=== PATIENT | male | born 1965 | race American Indian/Alaskan Native ===

== ENCOUNTER 2020-12-27 15:19 | Inpatient (IN) | payer OTHER ==
--- NOTE | 2020-12-27 15:31 | Event Note ---
ED Screening Note Date of service: 12/27/20 Time: 15:30 ED Screening Note: Patient complains of 3 days of left-sided chest pain and shortness of breath He has a history of [place], 6 stent placements, and CHF He states compliance with his home meds He also admits to extremity swelling This initial assessment/diagnostic orders/clinical plan/treatment(s) is/are subject to change based on patients health status, clinical progression and re- assessment by fellow clinical providers in the ED. Further treatment and workup at subsequent clinical providers discretion. Patient/guardian urged not to elope from the ED as their condition may be serious if not clinically assessed and managed. Initial orders include: Labs EKG Chest x-ray
--- NOTE | 2020-12-27 16:33 | XRay Report ---
CHEST 2 VIEWS INDICATION / CLINICAL INFORMATION: chest pain. COMPARISON: None available. FINDINGS: SUPPORT DEVICES: None. HEART / MEDIASTINUM: No significant abnormality. LUNGS / PLEURA: Streaky opacities in both midlungs likely indicate chronic scarring. ADDITIONAL FINDINGS: No significant additional findings. IMPRESSION: 1. Streaky opacities in both midlungs likely indicate chronic scarring. No definite acute findings. Signer Name: Connor Gordon MD Signed: 12/27/2020 4:28 PM Workstation Name: [id number]
[2020-12-27 17:08] LABS: Basophils # (Auto) 0.1 K/mm3 (0.0-0.1); Basophils % (Auto) 2.4 % (0.0-1.8); Eosinophils # (Auto) 0.1 K/mm3 (0.0-0.4); Eosinophils % (Auto) 1.2 % (0.0-4.3); Hematocrit 45.8 % (35.5-45.6); Hemoglobin 14.8 gm/dl (11.8-15.2); Lymphocytes # (Auto) 1.3 K/mm3 (1.2-5.4); Lymphocytes % (Auto) 21.2 % (13.4-35.0); Mean Corpuscular HGB Conc 32 % (32-34); Mean Corpuscular Volume 96 fl (84-94); Monocytes # (Auto) 0.5 K/mm3 (0.0-0.8); Monocytes % (Auto) 7.4 % (0.0-7.3); Platelet Count 207 K/mm3 (140-440); Red Blood Count 4.76 M/mm3 (3.65-5.03); Red Cell Distribution Width 15.3 % (13.2-15.2)
[2020-12-27 17:30] LABS: Albumin 2.9 g/dL (3.9-5); Calcium 8.9 mg/dL (8.4-10.2)
[2020-12-28] MEDS ORDERED: FUROSEMIDE 40 MG/4 ML INJ IV ONE (02:26)
[2020-12-28] MEDS ORDERED: IBUPROFEN 800 MG TAB PO ONE (02:26)
[2020-12-28] MEDS ORDERED: hydrALAZINE 25 MG TAB PO ONE (02:26)
[2020-12-28] MEDS ORDERED: CLOPIDOGREL 75 MG TAB PO ONE (02:53)
[2020-12-28] MEDS ORDERED: ACETAMINOPHEN 325 MG TAB PO ONE (02:53)
[2020-12-28] MEDS ORDERED: amLODIPine 5 MG TAB PO ONE (02:53)
[2020-12-28] MEDS ORDERED: ASPIRIN 81 MG TAB CHEW PO ONE (02:53)
--- NOTE | 2020-12-28 02:54 | Event Note ---
Date of service: 12/28/20 Face to Face: The patient was evaluated in the emergency department for symptoms described in the history of present illness. He/she was evaluated in the context of the global COVID-19 pandemic, which necessitated consideration that the patient might be at risk for infection with the virus that causes COVID-19. Institutional protocols and algorithms that pertain to the evaluation of patients at risk for COVID-19 are in a state of rapid change based on information released by regulatory bodies including the CDC and federal and state organizations. These policies and algorithms were followed during the patient's care in the emergency department. Please note that these policies, procedures and recommendations changed on a rapid basis. Patient is a 55-year-old gentleman, with a history of heart disease, congestive heart failure, hypertension, not Covid vaccinated, who recently moved here from [place], presenting to the ER with a few days of chest tightness, lower extremity swelling. Denies fever, chills, nausea, vomiting or diarrhea, loss of taste and smell. Has been taking his Plavix. Has been taking his aspirin. Moderate risk for major adverse cardiac event as per heart score. Exam shows 3-4+ edema in the bilateral lower extremities. Laboratory studies suggest cardiorenal syndrome. Admit patient to the medical service for goal-directed medical management of decompensated congestive heart failure. This patient may also have a component of undiagnosed obstructive sleep apnea, he reports that he typically has to sleep on his knees, and also reports that he feels very sleepy during the day. However, he is not acutely hypoxic encephalopathic at this time, and he will need to follow-up as an outpatient to have a sleep study done. I discussed this plan of care with the patient. He has articulated understanding and is agreeable to admission. Denies travel, surgery, immobilization, recent travel, DVT and pulmonary embolism risk factors. Vital Signs 12/27/20 12/27/20 12/27/20 15:31 21:58 22:00 Temperature 98.2 F Pulse Rate 99 H Respiratory 20 Rate Blood Pressure 182/138 O2 Sat by Pulse 98 100 98 Oximetry 12/27/20 12/28/20 12/28/20 22:32 01:57 02:01 Temperature Pulse Rate Respiratory Rate Blood Pressure 165/120 O2 Sat by Pulse 96 97 99 Oximetry 12/28/20 12/28/20 12/28/20 02:15 02:31 02:45 Temperature Pulse Rate Respiratory Rate Blood Pressure 165/120 163/122 163/122 O2 Sat by Pulse 95 96 99 Oximetry 12/28/20 12/28/20 12/28/20 03:01 03:15 03:31 Temperature Pulse Rate Respiratory Rate Blood Pressure 175/126 175/126 180/120 O2 Sat by Pulse 96 95 98 Oximetry 12/28/20 12/28/20 12/28/20 03:32 03:45 04:01 Temperature Pulse Rate 85 Respiratory Rate Blood Pressure 180/120 180/120 164/115 O2 Sat by Pulse 95 98 Oximetry 12/28/20 04:03 Temperature Pulse Rate 92 H Respiratory Rate Blood Pressure 164/114 O2 Sat by Pulse Oximetry Lab Results 12/27/20 12/27/20 Range/Units 16:53 16:53 WBC 6.3 (4.5-11.0) K/mm3 RBC 4.76 (3.65-5.03) M/mm3 Hgb 14.8 (11.8-15.2) gm/dl Hct 45.8 H (35.5-45.6) % MCV 96 H (84-94) fl MCH 31 (28-32) pg MCHC 32 (32-34) % RDW 15.3 H (13.2-15.2) % Plt Count 207 (140-440) K/mm3 Lymph % (Auto) 21.2 (13.4-35.0) % [place] % (Auto) 7.4 H (0.0-7.3) % Eos % (Auto) 1.2 (0.0-4.3) % Baso % (Auto) 2.4 H (0.0-1.8) % Lymph # (Auto) 1.3 (1.2-5.4) K/mm3 [place] # (Auto) 0.5 (0.0-0.8) K/mm3 Eos # (Auto) 0.1 (0.0-0.4) K/mm3 Baso # (Auto) 0.1 (0.0-0.1) K/mm3 Seg Neutrophils % 67.8 (40.0-70.0) % Seg Neutrophils # 4.2 (1.8-7.7) K/mm3 Sodium 143 (137-145) mmol/L Potassium 4.3 (3.6-5.0) mmol/L Chloride 107.7 H (98-107) mmol/L Carbon Dioxide 29 (22-30) mmol/L Anion Gap 11 mmol/L BUN 33 H (9-20) mg/dL Creatinine 1.8 H (0.8-1.3) mg/dL Estimated GFR 48 ml/min BUN/Creatinine Ratio 18 % Glucose 98 (75-100) mg/dL Calcium 8.9 (8.4-10.2) mg/dL Total Bilirubin 0.60 (0.1-1.2) mg/dL AST 28 (5-40) units/L ALT 31 (7-56) units/L Alkaline Phosphatase 71 (35-129) units/L Troponin T 0.015 (0.00-0.029) ng/mL NT-Pro-B Natriuret Pep 5859 H (0-900) pg/mL Total Protein 5.2 L (6.3-8.2) g/dL Albumin 2.9 L (3.9-5) g/dL Albumin/Globulin Ratio 1.3 % CHEST 2 VIEWS INDICATION / CLINICAL INFORMATION: chest pain. COMPARISON: None available. FINDINGS: SUPPORT DEVICES: None. HEART / MEDIASTINUM: No significant abnormality. LUNGS / PLEURA: Streaky opacities in both midlungs likely indicate chronic scarring. ADDITIONAL FINDINGS: No significant additional findings. IMPRESSION: 1. Streaky opacities in both midlungs likely indicate chronic scarring. No definite acute findings. Signer Name: Connor Gordon MD Signed: 12/27/2020 3:28 PM Workstation Name: [id number] EKG interpreted at 15: 41 Sinus rhythm, 97 bpm. Left axis deviation, left anterior fascicular block, normal P wave axis. QTC 493 ms. Nonspecific T wave abnormalities. Abnormal EKG. Not a STEMI.
--- NOTE | 2020-12-28 03:02 | Emergency Department Report ---
<FREDY MCMULLEN - Last Filed: 12/28/20 03:11> ED General Adult HPI - General Chief complaint: Chest Pain Stated complaint: CHEST PAIN Time Seen by Provider: 12/27/20 15:29 Source: patient Mode of arrival: Ambulatory Limitations: No Limitations - History of Present Illness Initial comments: Patient is a 55-year-old -[place]ian male history of hypertension coronary artery disease with [place] and multiple stent placement 4 years ago x6. Patient describes intermittent CHF including activity intolerance and anasarca intermi ttently for the past 3 days. Patient takes Lasix 40 mg p.o. twice daily, lisinopril, hydrochlorothiazide, amlodipine. States intermittent chest pain 4/10 and shortness of breath preventing complete night sleep. 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 Patient presents to ER today because Lasix is not improving symptoms. There is been no nausea vomiting, diaphoresis no dizziness, or lightheadedness. Patient denies shortness of breath at this time. Severity scale (0 -10): 3 - Related Data Allergies Allergy/AdvReac Type Severity Reaction Status Date / Time Sulfa (Sulfonamide Allergy Anaphylaxis Verified 12/27/20 15:30 Antibiotics) ED Review of Systems Constitutional: denies: chills, fever Eyes: denies: eye pain, eye discharge, vision change ENT: as per HPI Respiratory: shortness of breath. denies: cough, wheezing Cardiovascular: chest pain, dyspnea on exertion, edema (bilat LE ), paroxysmal nocturnal dyspnea. denies: palpitations Endocrine: no symptoms reported Gastrointestinal: denies: abdominal pain, nausea, vomiting, diarrhea Genitourinary: denies: urgency, dysuria Musculoskeletal: denies: back pain, joint swelling, arthralgia Skin: denies: rash, lesions Neurological: denies: headache, weakness, paresthesias Psychiatric: denies: anxiety, depression Hematological/Lymphatic: denies: easy bleeding, easy bruising ED Past Medical Hx - Past Medical History Previous Medical History?: Yes Hx Hypertension: Yes Hx Heart Attack/AMI: Yes Hx Congestive Heart Failure: Yes Hx Diabetes: No - Surgical History Past Surgical History?: No ED Physical Exam - General Limitations: No Limitations General appearance: alert, in no apparent distress - Head Head exam: Present: atraumatic, normocephalic - Eye Eye exam: Present: EOMI Pupils: Present: normal accommodation - ENT ENT exam: Present: normal exam - Neck Neck exam: Present: normal inspection, full ROM. Absent: tenderness - Expanded Neck Exam Expanded Neck exam: Absent: anterior neck swelling, thyroid mass, carotid bruit - Respiratory Respiratory exam: Present: normal lung sounds bilaterally. Absent: respiratory distress, wheezes, stridor, chest wall tenderness, prolonged expiratory - Cardiovascular Cardiovascular Exam: Present: regular rate, normal rhythm, normal heart sounds. Absent: systolic murmur, diastolic murmur, rubs, gallop - GI/Abdominal GI/Abdominal exam: Present: soft, normal bowel sounds. Absent: distended, tenderness, bruit, hernia - Rectal Rectal exam: Present: deferred - Extremities Exam Extremities exam: Present: full ROM, pedal edema. Absent: calf tenderness - Back Exam Back exam: Present: normal inspection, full ROM. Absent: CVA tenderness (R), CVA tenderness (L) - Neurological Exam Neurological exam: Present: alert, oriented X3, CN II-XII intact, normal gait - Psychiatric Psychiatric exam: Present: normal affect, normal mood - Skin Skin exam: Present: warm, dry, intact, normal color. Absent: rash ED Medical Decision Making - Lab Data Result diagrams: 12/27/20 16:53 12/27/20 16:53 Labs 12/27/20 12/27/20 16:53 16:53 WBC 6.3 RBC 4.76 Hgb 14.8 Hct 45.8 H MCV 96 H MCH 31 MCHC 32 RDW 15.3 H Plt Count 207 Lymph % (Auto) 21.2 [place] % (Auto) 7.4 H Eos % (Auto) 1.2 Baso % (Auto) 2.4 H Lymph # (Auto) 1.3 [place] # (Auto) 0.5 Eos # (Auto) 0.1 Baso # (Auto) 0.1 Seg Neutrophils % 67.8 Seg Neutrophils # 4.2 Sodium 143 Potassium 4.3 Chloride 107.7 H Carbon Dioxide 29 Anion Gap 11 BUN 33 H Creatinine 1.8 H Estimated GFR 48 BUN/Creatinine Ratio 18 Glucose 98 Calcium 8.9 Total Bilirubin 0.60 AST 28 ALT 31 Alkaline Phosphatase 71 Troponin T 0.015 NT-Pro-B Natriuret Pep 5859 H Total Protein 5.2 L Albumin 2.9 L Albumin/Globulin Ratio 1.3 - EKG Data EKG shows normal: sinus rhythm Rate: normal - EKG Data When compared to previous EKG there are: previous EKG unavailable Interpretation: LVH (NSR no ST Elevated [place], interp by ed attending. ) - Radiology Data Radiology results: report reviewed, image reviewed CHEST 2 VIEWS INDICATION / CLINICAL INFORMATION: chest pain. COMPARISON: None available. FINDINGS: SUPPORT DEVICES: None. HEART / MEDIASTINUM: No significant abnormality. LUNGS / PLEURA: Streaky opacities in both midlungs likely indicate chronic scarring. ADDITIONAL FINDINGS: No significant additional findings. IMPRESSION: 1. Streaky opacities in both midlungs likely indicate chronic scarring. No definite acute findings. Signer Name: Connor Gordon MD Signed: 12/27/2020 4:28 PM Workstation Name: [id number] Transcribed By: RJ Dictated By: Connor Gordon MD Electronically Authenticated By: Connor Gordon MD Signed Date/Time: 12/27/201627 DD/ 27 TD/TT: - Medical Decision Making Heart score 6, troponin 0 0.015,, BNP 5859, chest x-ray mild bilateral mid lobe opacity, EKG normal sinus rhythm with LVH no ST elevated [place] interpreted by ED a ttending. Patient does have history of [place] coronary stent placements, has not seen general service technician in the past 5 to 6 months. Plan admit to hospitalist diagnosis chest pain , CHF. Consulted ed attending with tx plan , he concurs with plan, discussed treatment plan with patient who concurs with plan, consult of the hospitalist, Pt care handoff given at this time , will admit to hospitalist Dx CP, CHF at this time, . pt is currently a/o x 3, denies, CP or Sob at this time. ED Disposition Clinical Impression: Chest pain Qualifiers: Chest pain type: unspecified Qualified Code(s): R07.9 - Chest pain, unspecified CHF (congestive heart failure) Qualifiers: Heart failure type: unspecified Heart failure chronicity: acute on chronic Qualified Code(s): I50.9 - Heart failure, unspecified Disposition: ADMITTED INPATIENT Is pt being admited?: Yes Does the pt Need Aspirin: Yes Condition: Stable Time of Disposition: 03:24 <SEROTOFF,MAIKEL - Last Filed: 12/28/20 05:24> ED Review of Systems ROS: Stated complaint: CHEST PAIN Other details as noted in HPI ED Course Vital Signs 12/27/20 12/27/20 12/27/20 15:31 21:58 22:00 Temperature 98.2 F Pulse Rate 99 H Respiratory 20 Rate Blood Pressure 182/138 O2 Sat by Pulse 98 100 98 Oximetry 12/27/20 12/28/20 12/28/20 22:32 01:57 02:01 Temperature Pulse Rate Respiratory Rate Blood Pressure 165/120 O2 Sat by Pulse 96 97 99 Oximetry 12/28/20 12/28/20 12/28/20 02:15 02:31 02:45 Temperature Pulse Rate Respiratory Rate Blood Pressure 165/120 163/122 163/122 O2 Sat by Pulse 95 96 99 Oximetry 12/28/20 12/28/20 12/28/20 03:01 03:15 03:31 Temperature Pulse Rate Respiratory Rate Blood Pressure 175/126 175/126 180/120 O2 Sat by Pulse 96 95 98 Oximetry 12/28/20 12/28/20 12/28/20 03:32 03:45 04:01 Temperature Pulse Rate 85 Respiratory Rate Blood Pressure 180/120 180/120 164/115 O2 Sat by Pulse 95 98 Oximetry 12/28/20 04:03 Temperature Pulse Rate 92 H Respiratory Rate Blood Pressure 164/114 O2 Sat by Pulse Oximetry ED Medical Decision Making - Lab Data Result diagrams: 12/27/20 16:53 12/27/20 16:53 Critical care attestation.: If time is entered above; I have spent that time in minutes in the direct care of this critically ill patient, excluding procedure time. ED Disposition Is pt being admited?: Yes Heart Score - HEART Score History: Slightly suspicious EKG: Non-specific Age: 45-65 Risk factors: > 3 risk factors or hx of atherosclerotic disease Troponin: < normal limit HEART Score: 4 - EKG Read Time Time EKG Completed: 15:41 EKG Read Time: 15:41 - Critical Actions Critical Actions: 4-6 pts:12-16.6% risk of adverse cardiac event. Should be admitted
[2020-12-28] MEDS ORDERED: ACETAMINOPHEN 325 MG TAB PO PRN (03:40)
[2020-12-28] MEDS ORDERED: oxyCODONE /ACETAMINOPHEN 5-325MG TAB PO PRN (03:40)
[2020-12-28] MEDS ORDERED: ONDANSETRON 4 MG/2 ML INJ IV PRN (03:40)
[2020-12-28] MEDS ORDERED: NALOXONE 0.4 MG/1 ML INJ IV PRN (03:40)
[2020-12-28] MEDS ORDERED: ALBUTEROL 2.5 MG/3 ML NEBU IH PRN (03:40)
[2020-12-28] MEDS ORDERED: NITROGLYCERIN 0.4 MG TAB SUBL SL PRN (03:40)
--- NOTE | 2020-12-28 04:21 | History and Physical Report ---
History of Present Illness Date of examination: 12/28/20 Date of admission: 12/28/20 03:24 Chief complaint: SOB History of present illness: 55-year-old -O[place]i male with history of HTN 3, [place] (s/p multiple stents), and CHF who presents [facility] ED with complaints of shortness of breath. At baseline patient takes p.o. Lasix 40 mg twice a day, however he states that it has not been working for him for the past couple of days. He noticed despite taking his p.o. Lasix he continues to have bilateral lower extremity pitting edema. Endorses orthopnea and PND. Patient recently relocated from [place] to [place], and has not establish care with a local health manager. He states he normally seek medical care at [facility] in [place]. Admits to diagnosis of CHF but is unsure of his ejection fraction. Patient is concerned about his overall health because he has a strong family history of cardiac disease. His mother, maternal aunt, and maternal cousin all from heart failure. He has 1 living sibling (sister), who also has been diagnosed with heart failure. Endorses mild chest discomfort/tightness accompanied with exertional dyspnea Denies fever, chills, nausea, vomiting, diarrhea, abdominal pain, loss of smell, loss of taste, medication noncompliant, palpitation, cough, hemoptysis, or recent sick contacts Past History Past Medical History: acute NE, CAD, heart failure, hypertension Past Surgical History: Other (multiple stents) Social history: single, Lives alone, full code. denies: smoking, alcohol abuse, prescription drug abuse, IV drug use Family history: hypertension, other (CHF: mother, sister, aunt, and nephew) Medications and Allergies Allergies Allergy/AdvReac Type Severity Reaction Status Date / Time Sulfa (Sulfonamide Allergy Anaphylaxis Verified 12/27/20 15:30 Antibiotics) Active Meds: Active Medications Acetaminophen (Acetaminophen 325 Mg Tab) 650 mg PO Q4H PRN PRN Reason: Pain MILD(1-3)/Fever >100.5/VILLALOBOS Albuterol (Albuterol 2.5 Mg/3 Ml Nebu) 2.5 mg IH Q3HRT PRN PRN Reason: Shortness Of Breath Aspirin (Aspirin 81 Mg Tab Chew) 81 mg PO QDAY TOMER Carvedilol (Carvedilol 12.5 Mg Tab) 12.5 mg PO BID [facility] Docusate Sodium (Docusate Sodium 100 Mg Cap) 100 mg PO BID TOMER Furosemide (Furosemide 40 Mg/4 Ml Inj) 40 mg IV BID@0600,1800 [facility] Heparin Sodium (Porcine) (Heparin 5,000 Unit/1 Ml Vial) 5,000 unit SUB-Q Q12HR TOMER Lisinopril (Lisinopril 5 Mg Tab) 5 mg PO BID TOMER Naloxone HCl (Naloxone 0.4 Mg/1 Ml Inj) 0.1 mg IV Q2MIN PRN PRN Reason: Res Rate </= 8 or 02 SAT < 92% Nitroglycerin (Nitroglycerin 0.4 Mg Tab Subl) 0.4 mg SL .Q5MIN PRN PRN Reason: Chest Pain Ondansetron HCl (Ondansetron 4 Mg/2 Ml Inj) 4 mg IV Q6H PRN PRN Reason: Nausea And Vomiting Oxycodone/Acetaminophen (Oxycodone /Acetaminophen 5-325mg Tab) 1 tab PO Q6H PRN PRN Reason: Pain, Moderate (4-6) Last Admin: 12/28/20 04:05 Dose: 1 tab Documented by: Sodium Chloride (Sodium Chloride 0.9% 10 Ml Flush Syringe) 10 ml IV BID TOMER Sodium Chloride (Sodium Chloride 0.9% 10 Ml Flush Syringe) 10 ml IV PRN PRN PRN Reason: LINE FLUSH Review of Systems All systems: negative (As noted in HPI) Exam - Physical Exam Narrative exam: Physical exam General appearance: Present: No acute distress, alert and oriented 3, pleasant, adult male - EENT Eyes: Present: PERRL, EOM intact ENT: hearing intact, normal dentition - Neck Neck: Present: supple, normal ROM - Respiratory Respiratory effort: Non-labored Respiratory: Clear throughout - Cardiovascular Heart rate: 85 (bpm) Rhythm: Sinus Heart Sounds: Present: S1 & S2. Absent: rub, click - Extremities Extremities: no ischemia, pulses intact, 2+ pitting bilateral lower extremity edema - Peripheral Assessment Peripheral Pulses: within normal limits - Abdominal General gastrointestinal: soft, non-tender, normal bowel sounds - Integumentary Integumentary: Present: warm, dry - Musculoskeletal Musculoskeletal: Able to move all extremities -Neurological Neurological: CN II-XII intact - Psychiatric Psychiatric: cooperative - Constitutional Vitals: Temp Pulse Resp BP Pulse Ox 98.2 F 92 H 20 164/114 98 12/27/20 15:31 12/28/20 04:03 12/27/20 15:31 12/28/20 04:03 12/28/20 04:01 HEART Score - HEART Score Troponin: Troponin T 0.015 ng/mL (0.00-0.029) 12/27/20 16:53 Results - Labs CBC & Chem 7: 12/27/20 16:53 12/27/20 16:53 Labs: Laboratory Last Values WBC 6.3 K/mm3 (4.5-11.0) 12/27/20 16:53 RBC 4.76 M/mm3 (3.65-5.03) 12/27/20 16:53 Hgb 14.8 gm/dl (11.8-15.2) 12/27/20 16:53 Hct 45.8 % (35.5-45.6) H 12/27/20 16:53 MCV 96 fl (84-94) H 12/27/20 16:53 MCH 31 pg (28-32) 12/27/20 16:53 MCHC 32 % (32-34) 12/27/20 16:53 RDW 15.3 % (13.2-15.2) H 12/27/20 16:53 Plt Count 207 K/mm3 (140-440) 12/27/20 16:53 Lymph % (Auto) 21.2 % (13.4-35.0) 12/27/20 16:53 [place] % (Auto) 7.4 % (0.0-7.3) H 12/27/20 16:53 Eos % (Auto) 1.2 % (0.0-4.3) 12/27/20 16:53 Baso % (Auto) 2.4 % (0.0-1.8) H 12/27/20 16:53 Lymph # (Auto) 1.3 K/mm3 (1.2-5.4) 12/27/20 16:53 [place] # (Auto) 0.5 K/mm3 (0.0-0.8) 12/27/20 16:53 Eos # (Auto) 0.1 K/mm3 (0.0-0.4) 12/27/20 16:53 Baso # (Auto) 0.1 K/mm3 (0.0-0.1) 12/27/20 16:53 Seg Neutrophils % 67.8 % (40.0-70.0) 12/27/20 16:53 Seg Neutrophils # 4.2 K/mm3 (1.8-7.7) 12/27/20 16:53 Sodium 143 mmol/L (137-145) 12/27/20 16:53 Potassium 4.3 mmol/L (3.6-5.0) 12/27/20 16:53 Chloride 107.7 mmol/L (98-107) H 12/27/20 16:53 Carbon Dioxide 29 mmol/L (22-30) 12/27/20 16:53 Anion Gap 11 mmol/L 12/27/20 16:53 BUN 33 mg/dL (9-20) H 12/27/20 16:53 Creatinine 1.8 mg/dL (0.8-1.3) H 12/27/20 16:53 Estimated GFR 48 ml/min 12/27/20 16:53 BUN/Creatinine Ratio 18 % 12/27/20 16:53 Glucose 98 mg/dL (75-100) 12/27/20 16:53 Calcium 8.9 mg/dL (8.4-10.2) 12/27/20 16:53 Total Bilirubin 0.60 mg/dL (0.1-1.2) 12/27/20 16:53 AST 28 units/L (5-40) 12/27/20 16:53 ALT 31 units/L (7-56) 12/27/20 16:53 Alkaline Phosphatase 71 units/L (35-129) 12/27/20 16:53 Troponin T 0.015 ng/mL (0.00-0.029) 12/27/20 16:53 NT-Pro-B Natriuret Pep 5859 pg/mL (0-900) H 12/27/20 16:53 Total Protein 5.2 g/dL (6.3-8.2) L 12/27/20 16:53 Albumin 2.9 g/dL (3.9-5) L 12/27/20 16:53 Albumin/Globulin Ratio 1.3 % 12/27/20 16:53 - Imaging and Cardiology Chest x-ray: report reviewed, image reviewed Imaging and Cardiology: CXR: CHEST 2 VIEWS INDICATION / CLINICAL INFORMATION: chest pain. COMPARISON: None available. FINDINGS: SUPPORT DEVICES: None. HEART / MEDIASTINUM: No significant abnormality. LUNGS / PLEURA: Streaky opacities in both midlungs likely indicate chronic scarring. ADDITIONAL FINDINGS: No significant additional findings. IMPRESSION: 1. Streaky opacities in both midlungs likely indicate chronic scarring. No definite acute findings. Assessment and Plan Assessment and plan: Acute Exacerbation CHF -EF unknown, echo pending -Endorses orthopnea -BNP elevated at 5859 -Troponin negative 1, will continue to trend -CXR reveals streaky opacities in both midlungs likely indicate chronic scarring. No definite acute findings -On IV Lasix -Start LUCIANO, BB, ASA -Albuterol as needed -Cardiology consulted Hypertensive urgency -Hx Hypertension -Continue to monitor BP -Resume home antihypertensive meds to optimize BP, once medication reconciliation has been completed -IV antihypertensive when necessary GREGG -BUN/Cr on admission 33/1.8 -??CKD -Avoid nephrotoxic agents -Renal dose all meds -If no improvement in the next 24 hours day team may consider nephrology consult DVT PPX -On heparin Advance Directives: No VTE prophylaxis?: Chemical, Mechanical Plan of care discussed with patient/family: Yes
[2020-12-28 06:14] LABS: Chol/HDL Ratio 3.71 %
[2020-12-28] MEDS: FUROSEMIDE 40 MG/4 ML INJ IV SCH ×2 (07:48→19:07)
--- NOTE | 2020-12-28 09:05 | Progress Note ---
Assessment and Plan Assessment and plan: Acute Exacerbation CHF -EF unknown, echo pending -Endorses orthopnea -BNP elevated at 5859 -Troponin negative 1, will continue to trend -CXR reveals streaky opacities in both midlungs likely indicate chronic scarring. No definite acute findings -On IV Lasix -Start LUCIANO, BB, ASA -Albuterol as needed -Cardiology consulted Coronary artery disease -Patient with history of [place] s/p multiple stents. hypertensive urgency -Hx Hypertension -Continue to monitor BP -Resume home antihypertensive meds to optimize BP, once medication reconciliation has been completed -IV antihypertensive when necessary GREGG -BUN/Cr on admission 33/1.8 -??CKD -Avoid nephrotoxic agents -Renal dose all meds -If no improvement in the next 24 hours day team may consider nephrology consult DVT PPX -On heparin 12/28/2020. Follow-up echocardiogram to assess ventricular systolic function. Continue with IV Lasix, LUCIANO inhibitor, beta-rubens and aspirin. Await cardiology consultation. History Interval history: No new issues overnight Hospitalist Physical - Constitutional Vitals: Temp Pulse Resp BP Pulse Ox 98.2 F 82 18 149/109 96 12/27/20 15:31 12/28/20 07:54 12/28/20 07:54 12/28/20 07:54 12/28/20 07:54 General appearance: Present: no acute distress, well-nourished - EENT Eyes: Present: PERRL, EOM intact ENT: hearing intact, clear oral mucosa, dentition normal - Neck Neck: Present: supple, normal ROM - Respiratory Respiratory effort: normal Respiratory: bilateral: CTA - Cardiovascular Rhythm: regular Heart Sounds: Present: S1 & S2. Absent: gallop, rub - Extremities Extremities: no ischemia, No edema, Full ROM - Abdominal General gastrointestinal: soft, non-tender, non-distended, normal bowel sounds - Integumentary Integumentary: Present: clear, warm, dry - Neurologic Neurologic: CNII-XII intact, moves all extremities HEART Score - HEART Score EKG: Non-specific Age: 45-65 Risk factors: > 3 risk factors or hx of atherosclerotic disease Troponin: Troponin T 0.022 ng/mL (0.00-0.029) 12/28/20 05:01 Troponin: < normal limit - Critical Actions Critical Actions: 4-6 pts:12-16.6% risk of adverse cardiac event. Should be admitted Results - Labs CBC & Chem 7: 12/27/20 16:53 12/27/20 16:53 Labs: Laboratory Last Values WBC 6.3 K/mm3 (4.5-11.0) 12/27/20 16:53 RBC 4.76 M/mm3 (3.65-5.03) 12/27/20 16:53 Hgb 14.8 gm/dl (11.8-15.2) 12/27/20 16:53 Hct 45.8 % (35.5-45.6) H 12/27/20 16:53 MCV 96 fl (84-94) H 12/27/20 16:53 MCH 31 pg (28-32) 12/27/20 16:53 MCHC 32 % (32-34) 12/27/20 16:53 RDW 15.3 % (13.2-15.2) H 12/27/20 16:53 Plt Count 207 K/mm3 (140-440) 12/27/20 16:53 Lymph % (Auto) 21.2 % (13.4-35.0) 12/27/20 16:53 [place] % (Auto) 7.4 % (0.0-7.3) H 12/27/20 16:53 Eos % (Auto) 1.2 % (0.0-4.3) 12/27/20 16:53 Baso % (Auto) 2.4 % (0.0-1.8) H 12/27/20 16:53 Lymph # (Auto) 1.3 K/mm3 (1.2-5.4) 12/27/20 16:53 [place] # (Auto) 0.5 K/mm3 (0.0-0.8) 12/27/20 16:53 Eos # (Auto) 0.1 K/mm3 (0.0-0.4) 12/27/20 16:53 Baso # (Auto) 0.1 K/mm3 (0.0-0.1) 12/27/20 16:53 Seg Neutrophils % 67.8 % (40.0-70.0) 12/27/20 16:53 Seg Neutrophils # 4.2 K/mm3 (1.8-7.7) 12/27/20 16:53 Sodium 143 mmol/L (137-145) 12/27/20 16:53 Potassium 4.3 mmol/L (3.6-5.0) 12/27/20 16:53 Chloride 107.7 mmol/L (98-107) H 12/27/20 16:53 Carbon Dioxide 29 mmol/L (22-30) 12/27/20 16:53 Anion Gap 11 mmol/L 12/27/20 16:53 BUN 33 mg/dL (9-20) H 12/27/20 16:53 Creatinine 1.8 mg/dL (0.8-1.3) H 12/27/20 16:53 Estimated GFR 48 ml/min 12/27/20 16:53 BUN/Creatinine Ratio 18 % 12/27/20 16:53 Glucose 98 mg/dL (75-100) 12/27/20 16:53 Calcium 8.9 mg/dL (8.4-10.2) 12/27/20 16:53 Total Bilirubin 0.60 mg/dL (0.1-1.2) 12/27/20 16:53 AST 28 units/L (5-40) 12/27/20 16:53 ALT 31 units/L (7-56) 12/27/20 16:53 Alkaline Phosphatase 71 units/L (35-129) 12/27/20 16:53 Troponin T 0.022 ng/mL (0.00-0.029) 12/28/20 05:01 NT-Pro-B Natriuret Pep 5859 pg/mL (0-900) H 12/27/20 16:53 Total Protein 5.2 g/dL (6.3-8.2) L 12/27/20 16:53 Albumin 2.9 g/dL (3.9-5) L 12/27/20 16:53 Albumin/Globulin Ratio 1.3 % 12/27/20 16:53 Triglycerides 69 mg/dL (2-149) 12/28/20 05:01 Cholesterol 182 mg/dL (50-199) 12/28/20 05:01 LDL Cholesterol Direct 4 mg/dL (50-130) L 12/28/20 05:01 HDL Cholesterol 49 mg/dL (40-59) 12/28/20 05:01 Cholesterol/HDL Ratio 3.71 % 12/28/20 05:01 Active Medications - Current Medications Current Medications: Generic Name Dose Route Start Last Admin Trade Name Freq PRN Reason Stop Dose Admin Acetaminophen 650 mg 12/28/20 03:40 Acetaminophen 325 Mg Tab PO Q4H PRN Pain MILD(1-3)/Fever >100.5/VILLALOBOS Albuterol 2.5 mg 12/28/20 03:40 Albuterol 2.5 Mg/3 Ml Nebu IH Q3HRT PRN Shortness Of Breath Aspirin 81 mg 12/28/20 10:00 Aspirin 81 Mg Tab Chew PO QDAY [facility] Carvedilol 12.5 mg 12/28/20 10:00 Carvedilol 12.5 Mg Tab PO BID [facility] Docusate Sodium 100 mg 12/28/20 10:00 Docusate Sodium 100 Mg Cap PO BID [facility] Furosemide 40 mg 12/28/20 06:00 12/28/20 07:48 Furosemide 40 Mg/4 Ml Inj IV 40 mg BID@0600,1800 [facility] Administration Heparin Sodium (Porcine) 5,000 unit 12/28/20 10:00 Heparin 5,000 Unit/1 Ml Vial SUB-Q Q12HR [facility] Lisinopril 5 mg 12/28/20 10:00 Lisinopril 5 Mg Tab PO BID [facility] Naloxone HCl 0.1 mg 12/28/20 03:40 Naloxone 0.4 Mg/1 Ml Inj IV Q2MIN PRN Res Rate </= 8 or 02 SAT < 92% Nitroglycerin 0.4 mg 12/28/20 03:40 Nitroglycerin 0.4 Mg Tab Subl SL .Q5MIN PRN Chest Pain Ondansetron HCl 4 mg 12/28/20 03:40 Ondansetron 4 Mg/2 Ml Inj IV Q6H PRN Nausea And Vomiting Oxycodone/Acetaminophen 1 tab 12/28/20 03:40 12/28/20 04:05 Oxycodone /Acetaminophen 5-325mg Tab PO 1 tab Q6H PRN Administration Pain, Moderate (4-6) Sodium Chloride 10 ml 12/28/20 10:00 Sodium Chloride 0.9% 10 Ml Flush Syringe IV BID TOMER Sodium Chloride 10 ml 12/28/20 03:40 Sodium Chloride 0.9% 10 Ml Flush Syringe IV PRN PRN LINE FLUSH
[2020-12-28] MEDS: HEPARIN 5,000 UNIT/1 ML VIAL SUB-Q SCH ×2 (09:35→22:57)
[2020-12-28] MEDS: DOCUSATE SODIUM 100 MG CAP PO SCH ×2 (09:38→22:56)
[2020-12-28] MEDS: LISINOPRIL 5 MG TAB PO SCH ×2 (09:38→22:56)
[2020-12-28] MEDS: ASPIRIN 81 MG TAB CHEW PO SCH (09:39)
[2020-12-28] MEDS: carvediloL 12.5 MG TAB PO SCH ×2 (10:04→22:56)
--- NOTE | 2020-12-28 13:20 | Electrocardiograph Report ---
[facility] Test Date: 2020-12-27 Test Time: 15:41:40 Pat Name: MO FLOREZ Department: Room: [place] [address] Gender: M Wirer Helper: [place]RI[place]HER : 1965 Requested By: TESSIE JAMES Order Number: [id number] Reading MD: Susan Malone Measurements Intervals [place] Rate: 97 P: 76 MT: 167 QRS: 0 QRSD: 99 T: 160 QT: 388 QTc: 493 Interpretive Statements Sinus rhythm Probable left atrial enlargement Low voltage, precordial leads Nonspecific T abnrm, anterolateral leads No previous ECG available for comparison Electronically Signed On 12-28-2020 13:20:30 EDT by Susan Malone
--- NOTE | 2020-12-28 18:19 | Consultation ---
History of Present Illness Consult date: 12/28/20 Consult reason: congestive heart failure History of present illness: Patient is a 55 y/o male with a pmhx of CAD s/p stents in 2014, CHF, and HTN who presented to the ED with complaint of SOB, BLE edema, and chest pain x 3 days. He reports that he has po Lasix which has not been helping with his edema or SOB. The patient describes his chest pain as tightness in the center of his chest which he rates at 6/10. He further reports that he moved from [place] 2 weeks ago and has not established with any healthcare providers. He states that he has not followed with a cardiologists or PCP in [place] and received his care from [facility]. He admits that he was admitted there 3-4 months ago for his CHF. He denies syncope, palpitations, diaphoresis, nausea, or vomiting. Cardiology is consulted for CHF. Past History Past Medical History: acute MD, CAD, heart failure, hypertension Past Surgical History: Other (multiple stents) Social history: single, Lives alone, full code. denies: smoking, alcohol abuse, prescription drug abuse, IV drug use Family history: hypertension, other (CHF: mother, sister, aunt, and nephew) Medications and Allergies Allergies Allergy/AdvReac Type Severity Reaction Status Date / Time Sulfa (Sulfonamide Allergy Anaphylaxis Verified 12/27/20 15:30 Antibiotics) Active Meds: Active Medications Acetaminophen (Acetaminophen 325 Mg Tab) 650 mg PO Q4H PRN PRN Reason: Pain MILD(1-3)/Fever >100.5/VILLALOBOS Albuterol (Albuterol 2.5 Mg/3 Ml Nebu) 2.5 mg IH Q3HRT PRN PRN Reason: Shortness Of Breath Aspirin (Aspirin 81 Mg Tab Chew) 81 mg PO QDAY [facility] Last Admin: 12/28/20 09:39 Dose: 81 mg Documented by: Carvedilol (Carvedilol 12.5 Mg Tab) 12.5 mg PO BID [facility] Last Admin: 12/28/20 10:04 Dose: 12.5 mg Documented by: Docusate Sodium (Docusate Sodium 100 Mg Cap) 100 mg PO BID [facility] Last Admin: 12/28/20 09:38 Dose: 100 mg Documented by: Furosemide (Furosemide 40 Mg/4 Ml Inj) 40 mg IV BID@0600,1800 [facility] Last Admin: 12/28/20 07:48 Dose: 40 mg Documented by: Heparin Sodium (Porcine) (Heparin 5,000 Unit/1 Ml Vial) 5,000 unit SUB-Q Q12HR [facility] Last Admin: 12/28/20 09:35 Dose: 5,000 unit Documented by: Lisinopril (Lisinopril 5 Mg Tab) 5 mg PO BID [facility] Last Admin: 12/28/20 09:38 Dose: 5 mg Documented by: Naloxone HCl (Naloxone 0.4 Mg/1 Ml Inj) 0.1 mg IV Q2MIN PRN PRN Reason: Res Rate </= 8 or 02 SAT < 92% Nitroglycerin (Nitroglycerin 0.4 Mg Tab Subl) 0.4 mg SL .Q5MIN PRN PRN Reason: Chest Pain Ondansetron HCl (Ondansetron 4 Mg/2 Ml Inj) 4 mg IV Q6H PRN PRN Reason: Nausea And Vomiting Oxycodone/Acetaminophen (Oxycodone /Acetaminophen 5-325mg Tab) 1 tab PO Q6H PRN PRN Reason: Pain, Moderate (4-6) Last Admin: 12/28/20 04:05 Dose: 1 tab Documented by: Sodium Chloride (Sodium Chloride 0.9% 10 Ml Flush Syringe) 10 ml IV BID [facility] Last Admin: 12/28/20 09:39 Dose: 10 ml Documented by: Sodium Chloride (Sodium Chloride 0.9% 10 Ml Flush Syringe) 10 ml IV PRN PRN PRN Reason: LINE FLUSH Review of Systems Constitutional: no weight loss, no weight gain, no fever, no chills Ears, nose, mouth and throat: no nose pain, no nasal congestion, no nasal discharge, no sinus pressure, no sinus pain Cardiovascular: chest pain, edema, shortness of breath, dyspnea on exertion, no palpitations, no rapid/irregular heart beat Respiratory: shortness of breath, dyspnea on exertion, no cough, no cough with sputum, no excessive sputum, no hemoptysis Gastrointestinal: no nausea, no vomiting, no diarrhea Musculoskeletal: no neck stiffness, no neck pain, no shooting arm pain Integumentary: no rash, no pruritis, no redness, no sores Neurological: no head injury, no transient paralysis, no paralysis, no weakness Psychiatric: no anxiety, no memory loss Endocrine: no cold intolerance, no heat intolerance Physical Examination Vital Signs Temp Pulse Resp BP Pulse Ox 98.2 F 99 H 20 182/138 98 12/27/20 15:31 12/27/20 15:31 12/27/20 15:31 12/27/20 15:31 12/27/20 15:31 General appearance: no acute distress HEENT: Positive: PERRL Neck: Positive: trachea midline Cardiac: Positive: Reg Rate and Rhythm Lungs: Positive: Normal Breath Sounds Neuro: Positive: Grossly Intact Abdomen: Positive: Soft, Active Bowel Sounds Skin: Negative: Rash, Suspicious Lesions, Ulceration Extremities: Present: upper extr. pulses, lower extr. pulses, +2 Edema Results 12/27/20 16:53 12/27/20 16:53 Lipids 12/28/20 Range/Units 05:01 Triglycerides 69 (2-149) mg/dL Cholesterol 182 (50-199) mg/dL HDL Cholesterol 49 (40-59) mg/dL Cholesterol/HDL Ratio 3.71 % - Imaging and Cardiology Echo: report reviewed EKG: report reviewed, image reviewed EKG interpretations - Telemetry EKG Rhythm: Sinus Rhythm - EKG Sinus rhythms and dysrhythmias: sinus rhythm Assessment and Plan CAD s/p multiple stents HFrEF HTN * BNP 5854, patient has +2 pitting edema. Agree with Lasix 40mg IV BID * Echo 12/28/2020-EF 10%, left ventricle is moderately dilated, severe diastolic dysfunction(restrictive filling), right ventricle is severely dilated right ventricle is hypokinetic, left atrium is moderately dilated, right atrium severely dilated moderate tricuspid regurgitation * EKG-normal sinus rhythm 97 no acute ischemic changes, troponins minimally elevated. AMI ruled out * GDMT: ASA, Coreg 12.5 mg PO BID, Lisinopril 5mg PO BID * Optimize HTN regimen: agree with amlodipine 10mg PO QD * Spoke with nurse to attempt to get patient records from [facility] Continue diuretics. Attempt to get records from [facility]. If unable to obtain records may need ischemic and Lifevest. Patient seen in conjunction with Dr. To who agrees with this plan of care. Will continue to follow - Patient Problems (1) Coronary artery disease (CAD) excluded Current Visit: Yes Status: Acute (2) HTN (hypertension) Current Visit: Yes Status: Acute (3) History of myocardial infarction Current Visit: Yes Status: Acute (4) CHF (congestive heart failure) Current Visit: Yes Status: Acute Qualifiers: Heart failure type: unspecified Heart failure chronicity: acute on chronic Qualified Code(s): I50.9 - Heart failure, unspecified (5) Chest pain Current Visit: Yes Status: Acute Qualifiers: Chest pain type: unspecified Qualified Code(s): R07.9 - Chest pain, unspecified
[2020-12-29] MEDS: FUROSEMIDE 40 MG/4 ML INJ IV SCH ×2 (05:32→18:19)
[2020-12-29 06:38] LABS: Basophils % (Auto) 0.6 % (0.0-1.8); Eosinophils # (Auto) 0.1 K/mm3 (0.0-0.4); Eosinophils % (Auto) 2.1 % (0.0-4.3); Hematocrit 42.1 % (35.5-45.6); Hemoglobin 13.8 gm/dl (11.8-15.2); Lymphocytes # (Auto) 1.3 K/mm3 (1.2-5.4); Lymphocytes % (Auto) 22.8 % (13.4-35.0); Mean Corpuscular HGB Conc 33 % (32-34); Mean Corpuscular Volume 95 fl (84-94); Monocytes # (Auto) 0.5 K/mm3 (0.0-0.8); Platelet Count 209 K/mm3 (140-440); Red Blood Count 4.42 M/mm3 (3.65-5.03); Red Cell Distribution Width 14.8 % (13.2-15.2)
[2020-12-29 07:06] LABS: Albumin 2.5 g/dL (3.9-5); Calcium 8.4 mg/dL (8.4-10.2)
[2020-12-29] MEDS: LISINOPRIL 5 MG TAB PO SCH (10:31)
[2020-12-29] MEDS: ASPIRIN 81 MG TAB CHEW PO SCH (10:31)
[2020-12-29] MEDS: carvediloL 12.5 MG TAB PO SCH ×2 (10:32→21:49)
[2020-12-29] MEDS: DOCUSATE SODIUM 100 MG CAP PO SCH ×2 (10:33→21:49)
[2020-12-29] MEDS: HEPARIN 5,000 UNIT/1 ML VIAL SUB-Q SCH ×2 (10:33→21:51)
--- NOTE | 2020-12-29 11:21 | Progress Note ---
Assessment and Plan Assessment and plan: Acute Exacerbation CHF -EF unknown, echo pending -Endorses orthopnea -BNP elevated at 5859 -Troponin negative 1, will continue to trend -CXR reveals streaky opacities in both midlungs likely indicate chronic scarring. No definite acute findings -On IV Lasix -Start LUCIANO, BB, ASA -Albuterol as needed -Cardiology consulted Coronary artery disease -Patient with history of [place] s/p multiple stents. hypertensive urgency -Hx Hypertension -Continue to monitor BP -Resume home antihypertensive meds to optimize BP, once medication reconciliation has been completed -IV antihypertensive when necessary GREGG -BUN/Cr on admission 33/1.8 -??CKD -Avoid nephrotoxic agents -Renal dose all meds -If no improvement in the next 24 hours day team may consider nephrology consult DVT PPX -On heparin 12/28/2020. Follow-up echocardiogram to assess ventricular systolic function. Continue with IV Lasix, LUCIANO inhibitor, beta-rubens and aspirin. Await cardiology consultation. 12/29/2020. Echocardiogram reveals dilated left ventricle with EF of 10%. Mild concentric LVH. Left atrium is moderately dilated. Right atrium severely dilated with moderate tricuspid regurgitation. Biventricular failure. RVSP 68 mmHg. Continue GDMT with aspirin, Coreg 12.5 mg p.o. twice daily and lisinopril 5 mg p.o. twice daily. Optimize hypertensive regimen with amlodipine 10 mg daily. Continue diuresis. Follow-up old records from previous hospital in [place] History Interval history: No new issues overnight Hospitalist Physical - Constitutional Vitals: Temp Pulse Resp BP Pulse Ox 97.5 F L 68 16 148/108 95 12/29/20 03:37 12/29/20 10:32 12/29/20 03:37 12/29/20 10:32 12/29/20 03:37 General appearance: Present: no acute distress - EENT Eyes: Present: PERRL, EOM intact ENT: hearing intact, clear oral mucosa, dentition normal - Neck Neck: Present: supple, normal ROM - Respiratory Respiratory effort: normal Respiratory: bilateral: CTA - Cardiovascular Rhythm: regular Heart Sounds: Present: S1 & S2. Absent: gallop, rub - Extremities Extremities: no ischemia, No edema, Full ROM - Abdominal General gastrointestinal: soft, non-tender, non-distended, normal bowel sounds - Integumentary Integumentary: Present: clear, warm, dry - Neurologic Neurologic: CNII-XII intact, moves all extremities HEART Score - HEART Score EKG: Non-specific Age: 45-65 Risk factors: > 3 risk factors or hx of atherosclerotic disease Troponin: Troponin T < 0.010 ng/mL (0.00-0.029) 12/28/20 13:00 Troponin: < normal limit - Critical Actions Critical Actions: 4-6 pts:12-16.6% risk of adverse cardiac event. Should be admitted Results - Labs CBC & Chem 7: 12/29/20 05:25 12/29/20 05:25 Labs: Laboratory Last Values WBC 5.8 K/mm3 (4.5-11.0) 12/29/20 05:25 RBC 4.42 M/mm3 (3.65-5.03) 12/29/20 05:25 Hgb 13.8 gm/dl (11.8-15.2) 12/29/20 05:25 Hct 42.1 % (35.5-45.6) 12/29/20 05:25 MCV 95 fl (84-94) H 12/29/20 05:25 MCH 31 pg (28-32) 12/29/20 05:25 MCHC 33 % (32-34) 12/29/20 05:25 RDW 14.8 % (13.2-15.2) 12/29/20 05:25 Plt Count 209 K/mm3 (140-440) 12/29/20 05:25 Lymph % (Auto) 22.8 % (13.4-35.0) 12/29/20 05:25 [place] % (Auto) 8.0 % (0.0-7.3) H 12/29/20 05:25 Eos % (Auto) 2.1 % (0.0-4.3) 12/29/20 05:25 Baso % (Auto) 0.6 % (0.0-1.8) 12/29/20 05:25 Lymph # (Auto) 1.3 K/mm3 (1.2-5.4) 12/29/20 05:25 [place] # (Auto) 0.5 K/mm3 (0.0-0.8) 12/29/20 05:25 Eos # (Auto) 0.1 K/mm3 (0.0-0.4) 12/29/20 05:25 Baso # (Auto) 0.0 K/mm3 (0.0-0.1) 12/29/20 05:25 Seg Neutrophils % 66.5 % (40.0-70.0) 12/29/20 05:25 Seg Neutrophils # 3.9 K/mm3 (1.8-7.7) 12/29/20 05:25 Sodium 144 mmol/L (137-145) 12/29/20 05:25 Potassium 3.6 mmol/L (3.6-5.0) 12/29/20 05:25 Chloride 109.1 mmol/L (98-107) H 12/29/20 05:25 Carbon Dioxide 29 mmol/L (22-30) 12/29/20 05:25 Anion Gap 10 mmol/L 12/29/20 05:25 BUN 32 mg/dL (9-20) H 12/29/20 05:25 Creatinine 1.8 mg/dL (0.8-1.3) H 12/29/20 05:25 Estimated GFR 48 ml/min 12/29/20 05:25 BUN/Creatinine Ratio 18 % 12/29/20 05:25 Glucose 87 mg/dL (75-100) 12/29/20 05:25 Calcium 8.4 mg/dL (8.4-10.2) 12/29/20 05:25 Total Bilirubin 0.70 mg/dL (0.1-1.2) 12/29/20 05:25 AST 23 units/L (5-40) 12/29/20 05:25 ALT 23 units/L (7-56) 12/29/20 05:25 Alkaline Phosphatase 73 units/L (35-129) 12/29/20 05:25 Troponin T < 0.010 ng/mL (0.00-0.029) 12/28/20 13:00 NT-Pro-B Natriuret Pep 5859 pg/mL (0-900) H 12/27/20 16:53 Total Protein 4.8 g/dL (6.3-8.2) L 12/29/20 05:25 Albumin 2.5 g/dL (3.9-5) L 12/29/20 05:25 Albumin/Globulin Ratio 1.1 % 12/29/20 05:25 Triglycerides 69 mg/dL (2-149) 12/28/20 05:01 Cholesterol 182 mg/dL (50-199) 12/28/20 05:01 LDL Cholesterol Direct 4 mg/dL (50-130) L 12/28/20 05:01 HDL Cholesterol 49 mg/dL (40-59) 12/28/20 05:01 Cholesterol/HDL Ratio 3.71 % 12/28/20 05:01 Active Medications - Current Medications Current Medications: Generic Name Dose Route Start Last Admin Trade Name Freq PRN Reason Stop Dose Admin Acetaminophen 650 mg 12/28/20 03:40 Acetaminophen 325 Mg Tab PO Q4H PRN Pain MILD(1-3)/Fever >100.5/VILLALOBOS Albuterol 2.5 mg 12/28/20 03:40 Albuterol 2.5 Mg/3 Ml Nebu IH Q3HRT PRN Shortness Of Breath Aspirin 81 mg 12/28/20 10:00 12/29/20 10:31 Aspirin 81 Mg Tab Chew PO 81 mg QDAY [facility] Administration Carvedilol 12.5 mg 12/28/20 10:00 12/29/20 10:32 Carvedilol 12.5 Mg Tab PO 12.5 mg BID [facility] Administration Docusate Sodium 100 mg 12/28/20 10:00 12/29/20 10:33 Docusate Sodium 100 Mg Cap PO 100 mg BID [facility] Administration Furosemide 40 mg 12/28/20 06:00 12/29/20 05:32 Furosemide 40 Mg/4 Ml Inj IV 40 mg BID@0600,1800 [facility] Administration Heparin Sodium (Porcine) 5,000 unit 12/28/20 10:00 12/29/20 10:33 Heparin 5,000 Unit/1 Ml Vial SUB-Q 5,000 unit Q12HR [facility] Administration Lisinopril 5 mg 12/28/20 10:00 12/29/20 10:31 Lisinopril 5 Mg Tab PO 5 mg BID [facility] Administration Naloxone HCl 0.1 mg 12/28/20 03:40 Naloxone 0.4 Mg/1 Ml Inj IV Q2MIN PRN Res Rate </= 8 or 02 SAT < 92% Nitroglycerin 0.4 mg 12/28/20 03:40 Nitroglycerin 0.4 Mg Tab Subl SL .Q5MIN PRN Chest Pain Ondansetron HCl 4 mg 12/28/20 03:40 Ondansetron 4 Mg/2 Ml Inj IV Q6H PRN Nausea And Vomiting Oxycodone/Acetaminophen 1 tab 12/28/20 03:40 12/28/20 04:05 Oxycodone /Acetaminophen 5-325mg Tab PO 1 tab Q6H PRN Administration Pain, Moderate (4-6) Sodium Chloride 10 ml 12/28/20 10:00 12/29/20 10:33 Sodium Chloride 0.9% 10 Ml Flush Syringe IV 10 ml BID [facility] Administration Sodium Chloride 10 ml 12/28/20 03:40 Sodium Chloride 0.9% 10 Ml Flush Syringe IV PRN PRN LINE FLUSH
--- NOTE | 2020-12-29 18:06 | Progress Note ---
Assessment and Plan Continue IV diuresis. Continue Coreg 12.5mg BID. Hold Lisinopril for now due to renal fxn. Still awaiting records from outside facility. If unable to obtain, may need to consider LifeVest prior to discharge. Lifestyle modifications, including adherence to medications and salt & fluid restriction, discussed at length with pt at bedside. Pt verbalized understanding. Pt seen in conjunction with Dr. To, who agrees with the assessment and plan of care. - Patient Problems (1) Acute on chronic HFrEF (heart failure with reduced ejection fraction) Current Visit: Yes Status: Acute (2) GREGG (acute kidney injury) Current Visit: Yes Status: Acute (3) Cardiomyopathy Current Visit: Yes Status: Chronic (4) Moderate pulmonary hypertension Current Visit: Yes Status: Chronic (5) CAD (coronary artery disease) Current Visit: Yes Status: Chronic (6) Stented coronary artery Current Visit: Yes Status: Chronic (7) HTN (hypertension) Current Visit: Yes Status: Chronic Qualifiers: Hypertension type: primary hypertension Qualified Code(s): I10 - Essential (primary) hypertension (8) History of myocardial infarction Current Visit: Yes Status: Chronic Subjective Date of service: 12/29/20 Principal diagnosis: A/C HFrEF Interval history: Pt states he is feeling ok. Wants to go home. Tele reviewed - SR 70s, no events. Objective Last Vital Signs Temp 98.3 F 12/29/20 15:50 Pulse 83 12/29/20 15:50 Resp 20 12/29/20 15:50 BP 143/102 12/29/20 15:50 Pulse Ox 96 12/29/20 15:50 - Physical Examination General: No Apparent Distress HEENT: Positive: EOMI, Normocephaly Neck: Positive: neck supple, trachea midline. Negative: JVD/HJR Cardiac: Positive: Reg Rate and Rhythm, S1/S2 Lungs: Positive: Decreased Breath Sounds Neuro: Positive: Grossly Intact Abdomen: Positive: Soft. Negative: Tender Skin: Negative: Rash Musculoskeletal: No Pain Extremities: Present: lower extr. pulses, +1 Edema - Labs and Meds Cardiac Enzymes 12/29/20 Range/Units 05:25 AST 23 (5-40) units/L CBC 12/29/20 Range/Units 05:25 WBC 5.8 (4.5-11.0) K/mm3 RBC 4.42 (3.65-5.03) M/mm3 Hgb 13.8 (11.8-15.2) gm/dl Hct 42.1 (35.5-45.6) % Plt Count 209 (140-440) K/mm3 Lymph # (Auto) 1.3 (1.2-5.4) K/mm3 [place] # (Auto) 0.5 (0.0-0.8) K/mm3 Eos # (Auto) 0.1 (0.0-0.4) K/mm3 Baso # (Auto) 0.0 (0.0-0.1) K/mm3 Comprehensive Metabolic Panel 12/29/20 Range/Units 05:25 Sodium 144 (137-145) mmol/L Potassium 3.6 (3.6-5.0) mmol/L Chloride 109.1 H (98-107) mmol/L Carbon Dioxide 29 (22-30) mmol/L BUN 32 H (9-20) mg/dL Creatinine 1.8 H (0.8-1.3) mg/dL Glucose 87 (75-100) mg/dL Calcium 8.4 (8.4-10.2) mg/dL AST 23 (5-40) units/L ALT 23 (7-56) units/L Alkaline Phosphatase 73 (35-129) units/L Total Protein 4.8 L (6.3-8.2) g/dL Albumin 2.5 L (3.9-5) g/dL - Imaging and Cardiology EKG: report reviewed, image reviewed Echo: report reviewed (12/28/2020 - EF 10%, severe diastolic dysfxn, mild LVH, LV mod dilated, RV severely dilated, RV hypokinetic, LA mod dilated, RA severely dilated, mod TR, RVSP 68mmHg) Cardiac cath: other (4 stents in 2014 per pt report, 2 stents in 2016 per pt report) - Telemetry EKG Rhythm: Sinus Rhythm - EKG Sinus rhythms and dysrhythmias: sinus rhythm Repolarization changes or abnormalities: nonspecific abnormality, ST segment, and/or T wave
[2020-12-30 05:37] LABS: Basophils % (Auto) 0.7 % (0.0-1.8); Eosinophils # (Auto) 0.1 K/mm3 (0.0-0.4); Hematocrit 40.5 % (35.5-45.6); Hemoglobin 13.5 gm/dl (11.8-15.2); Lymphocytes # (Auto) 1.6 K/mm3 (1.2-5.4); Lymphocytes % (Auto) 28.1 % (13.4-35.0); Mean Corpuscular HGB Conc 33 % (32-34); Mean Corpuscular Volume 95 fl (84-94); Monocytes # (Auto) 0.5 K/mm3 (0.0-0.8); Platelet Count 198 K/mm3 (140-440); Red Blood Count 4.26 M/mm3 (3.65-5.03); Red Cell Distribution Width 15.1 % (13.2-15.2)
[2020-12-30 05:57] LABS: Calcium 8.4 mg/dL (8.4-10.2)
[2020-12-30] MEDS: FUROSEMIDE 40 MG/4 ML INJ IV SCH (06:02)
[2020-12-30] MEDS: ASPIRIN 81 MG TAB CHEW PO SCH (09:30)
[2020-12-30] MEDS: HEPARIN 5,000 UNIT/1 ML VIAL SUB-Q SCH ×2 (09:30→22:15)
[2020-12-30] MEDS: DOCUSATE SODIUM 100 MG CAP PO SCH ×2 (09:30→22:14)
[2020-12-30] MEDS: carvediloL 12.5 MG TAB PO SCH ×2 (09:30→22:14)
--- NOTE | 2020-12-30 09:37 | Progress Note ---
Assessment and Plan Assessment and plan: Acute Exacerbation CHF -EF unknown, echo pending -Endorses orthopnea -BNP elevated at 5859 -Troponin negative 1, will continue to trend -CXR reveals streaky opacities in both midlungs likely indicate chronic scarring. No definite acute findings -On IV Lasix -Start LUCIANO, BB, ASA -Albuterol as needed -Cardiology consulted Coronary artery disease -Patient with history of [place] s/p multiple stents. hypertensive urgency -Hx Hypertension -Continue to monitor BP -Resume home antihypertensive meds to optimize BP, once medication reconciliation has been completed -IV antihypertensive when necessary GREGG -BUN/Cr on admission 33/1.8 -??CKD -Avoid nephrotoxic agents -Renal dose all meds -If no improvement in the next 24 hours day team may consider nephrology consult DVT PPX -On heparin 12/28/2020. Follow-up echocardiogram to assess ventricular systolic function. Continue with IV Lasix, LUCIANO inhibitor, beta-rubens and aspirin. Await cardiology consultation. 12/29/2020. Echocardiogram reveals dilated left ventricle with EF of 10%. Mild concentric LVH. Left atrium is moderately dilated. Right atrium severely dilated with moderate tricuspid regurgitation. Biventricular failure. RVSP 68 mmHg. Continue GDMT with aspirin, Coreg 12.5 mg p.o. twice daily and lisinopril 5 mg p.o. twice daily. Optimize hypertensive regimen with amlodipine 10 mg daily. Continue diuresis. Follow-up old records from previous hospital in [place] 12/30/2020. Continue Coreg 12.5 mg twice daily, IV diuresis and will hold lisinopril for now due to renal function. Continue beta-rubens and aspirin. Still awaiting records from outside facility. If unable to obtain, may need to consider LifeVest prior to discharge. History Interval history: No new issues overnight Hospitalist Physical - Constitutional Vitals: Temp Pulse Resp BP Pulse Ox 97.6 F 74 20 148/89 97 12/30/20 08:00 12/30/20 09:30 12/30/20 08:00 12/30/20 09:30 12/30/20 08:00 General appearance: Present: no acute distress - EENT Eyes: Present: PERRL, EOM intact ENT: hearing intact, clear oral mucosa, dentition normal - Neck Neck: Present: supple, normal ROM - Respiratory Respiratory effort: normal Respiratory: bilateral: CTA - Cardiovascular Rhythm: regular Heart Sounds: Present: S1 & S2. Absent: gallop, rub - Extremities Extremities: no ischemia, No edema, Full ROM - Abdominal General gastrointestinal: soft, non-tender, non-distended, normal bowel sounds - Integumentary Integumentary: Present: clear, warm, dry - Neurologic Neurologic: CNII-XII intact, moves all extremities HEART Score - HEART Score EKG: Non-specific Age: 45-65 Risk factors: > 3 risk factors or hx of atherosclerotic disease Troponin: Troponin T < 0.010 ng/mL (0.00-0.029) 12/28/20 13:00 Troponin: < normal limit - Critical Actions Critical Actions: 4-6 pts:12-16.6% risk of adverse cardiac event. Should be admitted Results - Labs CBC & Chem 7: 12/30/20 04:17 12/30/20 04:17 Labs: Laboratory Last Values WBC 5.6 K/mm3 (4.5-11.0) 12/30/20 04:17 RBC 4.26 M/mm3 (3.65-5.03) 12/30/20 04:17 Hgb 13.5 gm/dl (11.8-15.2) 12/30/20 04:17 Hct 40.5 % (35.5-45.6) 12/30/20 04:17 MCV 95 fl (84-94) H 12/30/20 04:17 MCH 32 pg (28-32) 12/30/20 04:17 MCHC 33 % (32-34) 12/30/20 04:17 RDW 15.1 % (13.2-15.2) 12/30/20 04:17 Plt Count 198 K/mm3 (140-440) 12/30/20 04:17 Lymph % (Auto) 28.1 % (13.4-35.0) 12/30/20 04:17 [place] % (Auto) 9.0 % (0.0-7.3) H 12/30/20 04:17 Eos % (Auto) 2.0 % (0.0-4.3) 12/30/20 04:17 Baso % (Auto) 0.7 % (0.0-1.8) 12/30/20 04:17 Lymph # (Auto) 1.6 K/mm3 (1.2-5.4) 12/30/20 04:17 [place] # (Auto) 0.5 K/mm3 (0.0-0.8) 12/30/20 04:17 Eos # (Auto) 0.1 K/mm3 (0.0-0.4) 12/30/20 04:17 Baso # (Auto) 0.0 K/mm3 (0.0-0.1) 12/30/20 04:17 Seg Neutrophils % 60.2 % (40.0-70.0) 12/30/20 04:17 Seg Neutrophils # 3.4 K/mm3 (1.8-7.7) 12/30/20 04:17 Sodium 142 mmol/L (137-145) 12/30/20 04:17 Potassium 3.6 mmol/L (3.6-5.0) 12/30/20 04:17 Chloride 106.9 mmol/L (98-107) 12/30/20 04:17 Carbon Dioxide 28 mmol/L (22-30) 12/30/20 04:17 Anion Gap 11 mmol/L 12/30/20 04:17 BUN 32 mg/dL (9-20) H 12/30/20 04:17 Creatinine 2.1 mg/dL (0.8-1.3) H 12/30/20 04:17 Estimated GFR 40 ml/min 12/30/20 04:17 BUN/Creatinine Ratio 15 % 12/30/20 04:17 Glucose 78 mg/dL (75-100) 12/30/20 04:17 Calcium 8.4 mg/dL (8.4-10.2) 12/30/20 04:17 Total Bilirubin 0.70 mg/dL (0.1-1.2) 12/29/20 05:25 AST 23 units/L (5-40) 12/29/20 05:25 ALT 23 units/L (7-56) 12/29/20 05:25 Alkaline Phosphatase 73 units/L (35-129) 12/29/20 05:25 Troponin T < 0.010 ng/mL (0.00-0.029) 12/28/20 13:00 NT-Pro-B Natriuret Pep 5859 pg/mL (0-900) H 12/27/20 16:53 Total Protein 4.8 g/dL (6.3-8.2) L 12/29/20 05:25 Albumin 2.5 g/dL (3.9-5) L 12/29/20 05:25 Albumin/Globulin Ratio 1.1 % 12/29/20 05:25 Triglycerides 69 mg/dL (2-149) 12/28/20 05:01 Cholesterol 182 mg/dL (50-199) 12/28/20 05:01 LDL Cholesterol Direct 4 mg/dL (50-130) L 12/28/20 05:01 HDL Cholesterol 49 mg/dL (40-59) 12/28/20 05:01 Cholesterol/HDL Ratio 3.71 % 12/28/20 05:01 Joseph/IV: Voiding Method Urinal Active Medications - Current Medications Current Medications: Generic Name Dose Route Start Last Admin Trade Name Freq PRN Reason Stop Dose Admin Acetaminophen 650 mg 12/28/20 03:40 Acetaminophen 325 Mg Tab PO Q4H PRN Pain MILD(1-3)/Fever >100.5/VILLALOBOS Albuterol 2.5 mg 12/28/20 03:40 Albuterol 2.5 Mg/3 Ml Nebu IH Q3HRT PRN Shortness Of Breath Aspirin 81 mg 12/28/20 10:00 12/30/20 09:30 Aspirin 81 Mg Tab Chew PO 81 mg QDAY TOMER Administration Atorvastatin Calcium 40 mg 12/29/20 22:00 12/29/20 21:49 Atorvastatin 40 Mg Tab PO 40 mg QHS TOMER Administration Carvedilol 12.5 mg 12/28/20 10:00 12/30/20 09:30 Carvedilol 12.5 Mg Tab PO 12.5 mg BID TOMER Administration Docusate Sodium 100 mg 12/28/20 10:00 12/30/20 09:30 Docusate Sodium 100 Mg Cap PO 100 mg BID TOMER Administration Furosemide 40 mg 12/28/20 06:00 12/30/20 06:02 Furosemide 40 Mg/4 Ml Inj IV 40 mg BID@0600,1800 TOMER Administration Heparin Sodium (Porcine) 5,000 unit 12/28/20 10:00 12/30/20 09:30 Heparin 5,000 Unit/1 Ml Vial SUB-Q 5,000 unit Q12HR TOMER Administration Naloxone HCl 0.1 mg 12/28/20 03:40 Naloxone 0.4 Mg/1 Ml Inj IV Q2MIN PRN Res Rate </= 8 or 02 SAT < 92% Nitroglycerin 0.4 mg 12/28/20 03:40 Nitroglycerin 0.4 Mg Tab Subl SL .Q5MIN PRN Chest Pain Ondansetron HCl 4 mg 12/28/20 03:40 Ondansetron 4 Mg/2 Ml Inj IV Q6H PRN Nausea And Vomiting Oxycodone/Acetaminophen 1 tab 12/28/20 03:40 12/28/20 04:05 Oxycodone /Acetaminophen 5-325mg Tab PO 1 tab Q6H PRN Administration Pain, Moderate (4-6) Sodium Chloride 10 ml 12/28/20 10:00 12/30/20 09:30 Sodium Chloride 0.9% 10 Ml Flush Syringe IV 10 ml BID TOMER Administration Sodium Chloride 10 ml 12/28/20 03:40 Sodium Chloride 0.9% 10 Ml Flush Syringe IV PRN PRN LINE FLUSH
--- NOTE | 2020-12-30 14:50 | Progress Note ---
Assessment and Plan Plan to transition to PO Lasix in AM. Continue Coreg 12.5mg BID. Hold Lisinopril for now due to renal fxn. Still awaiting records from outside facility. LifeVest order form and supporting documentation submitted to [facility] via fax today. Pt seen in conjunction with Dr. To, who agrees with the assessment and plan of care. - Patient Problems (1) Acute on chronic HFrEF (heart failure with reduced ejection fraction) Current Visit: Yes Status: Acute (2) GREGG (acute kidney injury) Current Visit: Yes Status: Acute (3) Cardiomyopathy Current Visit: Yes Status: Chronic (4) Moderate pulmonary hypertension Current Visit: Yes Status: Chronic (5) CAD (coronary artery disease) Current Visit: Yes Status: Chronic (6) Stented coronary artery Current Visit: Yes Status: Chronic (7) HTN (hypertension) Current Visit: Yes Status: Chronic Qualifiers: Hypertension type: primary hypertension Qualified Code(s): I10 - Essential (primary) hypertension (8) History of myocardial infarction Current Visit: Yes Status: Chronic Subjective Date of service: 12/30/20 Principal diagnosis: A/C HFrEF Interval history: No new complaints. Denies SOB/orthopnea. Wants to go home. Tele reviewed - SR 60s w/PVCs. Objective Vital Signs Temp Pulse Pulse Resp BP Pulse Ox 12/30/20 12:17 97.3 F L 61 18 140/105 100 12/30/20 09:30 74 148/89 12/30/20 09:00 17 97 12/30/20 08:00 97.6 F 75 20 156/109 97 12/30/20 03:50 97.6 F 16 149/104 12/29/20 23:29 97.6 F 65 16 138/85 99 12/29/20 23:00 75 12/29/20 21:58 75 20 97 12/29/20 21:49 75 145/113 12/29/20 19:25 98.0 F 75 16 145/113 97 12/29/20 15:50 98.3 F 83 20 143/102 96 12/29/20 15:00 67 - Physical Examination General: No Apparent Distress HEENT: Positive: EOMI, Normocephaly Neck: Positive: neck supple, trachea midline. Negative: JVD/HJR Cardiac: Positive: Reg Rate and Rhythm, S1/S2 Lungs: Positive: Decreased Breath Sounds (bases) Neuro: Positive: Grossly Intact Abdomen: Positive: Soft. Negative: Tender Skin: Negative: Rash Musculoskeletal: No Pain Extremities: Present: lower extr. pulses, edema (trace BLE) - Labs and Meds CBC 12/30/20 Range/Units 04:17 WBC 5.6 (4.5-11.0) K/mm3 RBC 4.26 (3.65-5.03) M/mm3 Hgb 13.5 (11.8-15.2) gm/dl Hct 40.5 (35.5-45.6) % Plt Count 198 (140-440) K/mm3 Lymph # (Auto) 1.6 (1.2-5.4) K/mm3 [place] # (Auto) 0.5 (0.0-0.8) K/mm3 Eos # (Auto) 0.1 (0.0-0.4) K/mm3 Baso # (Auto) 0.0 (0.0-0.1) K/mm3 Comprehensive Metabolic Panel 12/30/20 Range/Units 04:17 Sodium 142 (137-145) mmol/L Potassium 3.6 (3.6-5.0) mmol/L Chloride 106.9 (98-107) mmol/L Carbon Dioxide 28 (22-30) mmol/L BUN 32 H (9-20) mg/dL Creatinine 2.1 H (0.8-1.3) mg/dL Glucose 78 (75-100) mg/dL Calcium 8.4 (8.4-10.2) mg/dL - Imaging and Cardiology EKG: report reviewed, image reviewed Echo: report reviewed (12/28/2020 - EF 10%, severe diastolic dysfxn, mild LVH, LV mod dilated, RV severely dilated, RV hypokinetic, LA mod dilated, RA severely dilated, mod TR, RVSP 68mmHg) Cardiac cath: other (4 stents in 2014 per pt report, 2 stents in 2016 per pt report) - Telemetry EKG Rhythm: Sinus Rhythm - EKG Sinus rhythms and dysrhythmias: sinus rhythm Repolarization changes or abnormalities: nonspecific abnormality, ST segment, and/or T wave
[2020-12-30] MEDS ORDERED: FUROSEMIDE 20 MG/2 ML INJ IV SCH (18:00)
[2020-12-31] MEDS ORDERED: FUROSEMIDE 40 MG TAB PO SCH (06:00)
--- NOTE | 2020-12-31 08:36 | Progress Note ---
Assessment and Plan Assessment and plan: Acute Exacerbation CHF -EF unknown, echo pending -Endorses orthopnea -BNP elevated at 5859 -Troponin negative 1, will continue to trend -CXR reveals streaky opacities in both midlungs likely indicate chronic scarring. No definite acute findings -On IV Lasix -Start LUCIANO, BB, ASA -Albuterol as needed -Cardiology consulted Coronary artery disease -Patient with history of [place] s/p multiple stents. hypertensive urgency -Hx Hypertension -Continue to monitor BP -Resume home antihypertensive meds to optimize BP, once medication reconciliation has been completed -IV antihypertensive when necessary GREGG -BUN/Cr on admission 33/1.8 -??CKD -Avoid nephrotoxic agents -Renal dose all meds -If no improvement in the next 24 hours day team may consider nephrology consult DVT PPX -On heparin 12/28/2020. Follow-up echocardiogram to assess ventricular systolic function. Continue with IV Lasix, LUCIANO inhibitor, beta-rubens and aspirin. Await cardiology consultation. 12/29/2020. Echocardiogram reveals dilated left ventricle with EF of 10%. Mild concentric LVH. Left atrium is moderately dilated. Right atrium severely dilated with moderate tricuspid regurgitation. Biventricular failure. RVSP 68 mmHg. Continue GDMT with aspirin, Coreg 12.5 mg p.o. twice daily and lisinopril 5 mg p.o. twice daily. Optimize hypertensive regimen with amlodipine 10 mg daily. Continue diuresis. Follow-up old records from previous hospital in [place] 12/30/2020. Continue Coreg 12.5 mg twice daily, IV diuresis and will hold lisinopril for now due to renal function. Continue beta-rubens and aspirin. Still awaiting records from outside facility. If unable to obtain, may need to consider LifeVest prior to discharge. 12/31/2020. Continue Coreg 12.5 mg twice daily, Lasix 40 mg p.o. daily, Lipitor 40 mg daily and aspirin 81 mg daily. Holding lisinopril secondary to renal insufficiency. Patient likely has CKD. Await old records from outside facility in [place]. LifeVest ordered per cardiology History Interval history: No new issues overnight Hospitalist Physical - Constitutional Vitals: Temp Pulse Resp BP Pulse Ox 97.7 F 75 16 150/110 100 12/31/20 03:45 12/31/20 03:45 12/30/20 23:51 12/31/20 03:45 12/30/20 23:51 General appearance: Present: no acute distress - EENT Eyes: Present: PERRL, EOM intact ENT: hearing intact, clear oral mucosa, dentition normal - Neck Neck: Present: supple, normal ROM - Respiratory Respiratory effort: normal Respiratory: bilateral: CTA - Cardiovascular Rhythm: regular Heart Sounds: Present: S1 & S2. Absent: gallop, rub - Extremities Extremities: no ischemia, No edema, Full ROM - Abdominal General gastrointestinal: soft, non-tender, non-distended, normal bowel sounds - Integumentary Integumentary: Present: clear, warm, dry - Neurologic Neurologic: CNII-XII intact, moves all extremities HEART Score - HEART Score EKG: Non-specific Age: 45-65 Risk factors: > 3 risk factors or hx of atherosclerotic disease Troponin: Troponin T < 0.010 ng/mL (0.00-0.029) 12/28/20 13:00 Troponin: < normal limit - Critical Actions Critical Actions: 4-6 pts:12-16.6% risk of adverse cardiac event. Should be admitted Results - Labs CBC & Chem 7: 12/30/20 04:17 12/30/20 04:17 Labs: Laboratory Last Values WBC 5.6 K/mm3 (4.5-11.0) 12/30/20 04:17 RBC 4.26 M/mm3 (3.65-5.03) 12/30/20 04:17 Hgb 13.5 gm/dl (11.8-15.2) 12/30/20 04:17 Hct 40.5 % (35.5-45.6) 12/30/20 04:17 MCV 95 fl (84-94) H 12/30/20 04:17 MCH 32 pg (28-32) 12/30/20 04:17 MCHC 33 % (32-34) 12/30/20 04:17 RDW 15.1 % (13.2-15.2) 12/30/20 04:17 Plt Count 198 K/mm3 (140-440) 12/30/20 04:17 Lymph % (Auto) 28.1 % (13.4-35.0) 12/30/20 04:17 [place] % (Auto) 9.0 % (0.0-7.3) H 12/30/20 04:17 Eos % (Auto) 2.0 % (0.0-4.3) 12/30/20 04:17 Baso % (Auto) 0.7 % (0.0-1.8) 12/30/20 04:17 Lymph # (Auto) 1.6 K/mm3 (1.2-5.4) 12/30/20 04:17 [place] # (Auto) 0.5 K/mm3 (0.0-0.8) 12/30/20 04:17 Eos # (Auto) 0.1 K/mm3 (0.0-0.4) 12/30/20 04:17 Baso # (Auto) 0.0 K/mm3 (0.0-0.1) 12/30/20 04:17 Seg Neutrophils % 60.2 % (40.0-70.0) 12/30/20 04:17 Seg Neutrophils # 3.4 K/mm3 (1.8-7.7) 12/30/20 04:17 Sodium 142 mmol/L (137-145) 12/30/20 04:17 Potassium 3.6 mmol/L (3.6-5.0) 12/30/20 04:17 Chloride 106.9 mmol/L (98-107) 12/30/20 04:17 Carbon Dioxide 28 mmol/L (22-30) 12/30/20 04:17 Anion Gap 11 mmol/L 12/30/20 04:17 BUN 32 mg/dL (9-20) H 12/30/20 04:17 Creatinine 2.1 mg/dL (0.8-1.3) H 12/30/20 04:17 Estimated GFR 40 ml/min 12/30/20 04:17 BUN/Creatinine Ratio 15 % 12/30/20 04:17 Glucose 78 mg/dL (75-100) 12/30/20 04:17 Calcium 8.4 mg/dL (8.4-10.2) 12/30/20 04:17 Total Bilirubin 0.70 mg/dL (0.1-1.2) 12/29/20 05:25 AST 23 units/L (5-40) 12/29/20 05:25 ALT 23 units/L (7-56) 12/29/20 05:25 Alkaline Phosphatase 73 units/L (35-129) 12/29/20 05:25 Troponin T < 0.010 ng/mL (0.00-0.029) 12/28/20 13:00 NT-Pro-B Natriuret Pep 5859 pg/mL (0-900) H 12/27/20 16:53 Total Protein 4.8 g/dL (6.3-8.2) L 12/29/20 05:25 Albumin 2.5 g/dL (3.9-5) L 12/29/20 05:25 Albumin/Globulin Ratio 1.1 % 12/29/20 05:25 Triglycerides 69 mg/dL (2-149) 12/28/20 05:01 Cholesterol 182 mg/dL (50-199) 12/28/20 05:01 LDL Cholesterol Direct 4 mg/dL (50-130) L 12/28/20 05:01 HDL Cholesterol 49 mg/dL (40-59) 12/28/20 05:01 Cholesterol/HDL Ratio 3.71 % 12/28/20 05:01 Joseph/IV: Voiding Method Urinal Active Medications - Current Medications Current Medications: Generic Name Dose Route Start Last Admin Trade Name Freq PRN Reason Stop Dose Admin Acetaminophen 650 mg 12/28/20 03:40 Acetaminophen 325 Mg Tab PO Q4H PRN Pain MILD(1-3)/Fever >100.5/VILLALOBOS Albuterol 2.5 mg 12/28/20 03:40 Albuterol 2.5 Mg/3 Ml Nebu IH Q3HRT PRN Shortness Of Breath Aspirin 81 mg 12/28/20 10:00 12/30/20 09:30 Aspirin 81 Mg Tab Chew PO 81 mg QDAY TOMER Administration Atorvastatin Calcium 40 mg 12/29/20 22:00 12/30/20 22:14 Atorvastatin 40 Mg Tab PO 40 mg QHS TOMER Administration Carvedilol 12.5 mg 12/28/20 10:00 12/30/20 22:14 Carvedilol 12.5 Mg Tab PO 12.5 mg BID TOMER Administration Docusate Sodium 100 mg 12/28/20 10:00 12/30/20 22:14 Docusate Sodium 100 Mg Cap PO 100 mg BID TOMER Administration Furosemide 40 mg 12/31/20 06:00 12/31/20 05:51 Furosemide 40 Mg Tab PO 40 mg DAILY@0600 TOMER Administration Heparin Sodium (Porcine) 5,000 unit 12/28/20 10:00 12/30/20 22:15 Heparin 5,000 Unit/1 Ml Vial SUB-Q 5,000 unit Q12HR TOMER Administration Naloxone HCl 0.1 mg 12/28/20 03:40 Naloxone 0.4 Mg/1 Ml Inj IV Q2MIN PRN Res Rate </= 8 or 02 SAT < 92% Nitroglycerin 0.4 mg 12/28/20 03:40 Nitroglycerin 0.4 Mg Tab Subl SL .Q5MIN PRN Chest Pain Ondansetron HCl 4 mg 12/28/20 03:40 Ondansetron 4 Mg/2 Ml Inj IV Q6H PRN Nausea And Vomiting Oxycodone/Acetaminophen 1 tab 12/28/20 03:40 12/28/20 04:05 Oxycodone /Acetaminophen 5-325mg Tab PO 1 tab Q6H PRN Administration Pain, Moderate (4-6) Sodium Chloride 10 ml 12/28/20 10:00 12/30/20 22:15 Sodium Chloride 0.9% 10 Ml Flush Syringe IV 10 ml BID TOMER Administration Sodium Chloride 10 ml 12/28/20 03:40 Sodium Chloride 0.9% 10 Ml Flush Syringe IV PRN PRN LINE FLUSH
[2020-12-31] MEDS: DOCUSATE SODIUM 100 MG CAP PO SCH (09:21)
[2020-12-31] MEDS: carvediloL 12.5 MG TAB PO SCH (09:21)
[2020-12-31] MEDS: ASPIRIN 81 MG TAB CHEW PO SCH (09:21)
[2020-12-31] MEDS: HEPARIN 5,000 UNIT/1 ML VIAL SUB-Q SCH (09:21)
--- NOTE | 2020-12-31 13:28 | Progress Note ---
<JULIETTE ALFREDO - Last Filed: 12/31/20 14:09> Assessment and Plan Pt is currently euvolemic. Continue PO Lasix 40mg daily. Continue Coreg 12.5mg BID. Add Hydralazine 50mg BID and Imdur 30mg daily. No ACEI/ARB due to renal fxn. Cancel LifeVest order. Otherwise stable cardiac status. Pt may be discharged. Follow-up with Dr. To in 1-2 weeks ([phone]). Pt seen in conjunction with Dr. Huston, who agrees with the assessment and plan of care. - Patient Problems (1) Acute on chronic HFrEF (heart failure with reduced ejection fraction) Status: Acute (2) GREGG (acute kidney injury) Status: Acute (3) CKD (chronic kidney disease) Status: Suspected (4) Cardiomyopathy Status: Chronic (5) Moderate pulmonary hypertension Status: Chronic (6) CAD (coronary artery disease) Status: Chronic (7) Stented coronary artery Status: Chronic (8) HTN (hypertension) Status: Chronic Qualifiers: Hypertension type: primary hypertension Qualified Code(s): I10 - Essential (primary) hypertension (9) History of myocardial infarction Status: Chronic (10) Medical non-compliance Status: Chronic Subjective Date of service: 12/31/20 Principal diagnosis: A/C HFrEF Interval history: No complaints. States "I did 20 push-ups this morning." Requesting to leave. Tele reviewed - SR 60s w/PVCs. Objective Last Vital Signs Temp 98.7 F 12/31/20 12:00 Pulse 72 12/31/20 12:00 Resp 18 12/31/20 12:00 BP 144/101 12/31/20 12:00 Pulse Ox 100 12/31/20 12:00 - Physical Examination General: No Apparent Distress HEENT: Positive: EOMI, Normocephaly Neck: Positive: neck supple, trachea midline. Negative: JVD/HJR Cardiac: Positive: Reg Rate and Rhythm, S1/S2 Lungs: Positive: clear to auscultation Neuro: Positive: Grossly Intact Abdomen: Positive: Soft. Negative: Tender Skin: Negative: Rash Musculoskeletal: No Pain Extremities: Present: lower extr. pulses. Absent: edema - Imaging and Cardiology EKG: report reviewed, image reviewed Echo: report reviewed (12/28/2020 - EF 10%, severe diastolic dysfxn, mild LVH, LV mod dilated, RV severely dilated, RV hypokinetic, LA mod dilated, RA severely dilated, mod TR, RVSP 68mmHg) Cardiac cath: other (4 stents in 2014 per pt report, 2 stents in 2016 per pt report) - Telemetry EKG Rhythm: Sinus Rhythm - EKG Sinus rhythms and dysrhythmias: sinus rhythm Repolarization changes or abnormalities: nonspecific abnormality, ST segment, and/or T wave <JESU HUSTON R - Last Filed: 01/01/21 11:02> Assessment and Plan in view of non compliance, urged pt to take meds and diet and fluid restriction and pt is compensated heart failure and no vtach on monitor and will hold off life vest in view of non compliance and no vtach on monitor reassess as outpatient Objective Vital Signs Temp Pulse Resp BP BP Pulse Ox 12/31/20 16:35 18 137/99 12/31/20 15:00 70 12/31/20 12:00 98.7 F 72 18 144/101 100
--- NOTE | 2020-12-31 13:44 | Discharge Summary ---
Providers - Providers Date of Admission: 12/28/20 03:24 Date of discharge: 12/31/20 Attending physician: AARTI ALFREDO 12/28/20 04:15 Consult to Physician [CONS] Routine Comment: Consulting Provider: ODIN VAZQUEZ Physician Instructions: Reason For Exam: hx CHF, AE- CHF EF unknown Primary care physician: LINUX SYSTEM ENGINEER Hospitalization Reason for admission: chf Condition: Stable Hospital course: 55 y0 male admitted with dx of CKD, HTN, CAD, Acute systolic CHF w/ BNP elevated at 5859, Troponin negative, and CXR reveals streaky opacities in both midlungs likely indicate chronic scarring. No definite acute findings. Pt was rx w/ IV Lasix, LUCIANO, BB, ASA. Cardiology and Renal consulted. Hospital course: 12/28/2020. Follow-up echocardiogram to assess ventricular systolic function. Continue with IV Lasix, LUCIANO inhibitor, beta-rubens and aspirin. Await cardiology consultation. 12/29/2020. Echocardiogram reveals dilated left ventricle with EF of 10%. Mild concentric LVH. Left atrium is moderately dilated. Right atrium severely dilated with moderate tricuspid regurgitation. Biventricular failure. RVSP 68 mmHg. Continue GDMT with aspirin, Coreg 12.5 mg p.o. twice daily and lisinopril 5 mg p.o. twice daily. Optimize hypertensive regimen with amlodipine 10 mg daily. Continue diuresis. Follow-up old records from previous hospital in [place] 12/30/2020. Continue Coreg 12.5 mg twice daily, IV diuresis and will hold lisinopril for now due to renal function. Continue beta-rubens and aspirin. Still awaiting records from outside facility. If unable to obtain, may need to consider LifeVest prior to discharge. 12/31/2020. Continue Coreg 12.5 mg twice daily, Lasix 40 mg p.o. daily, Lipitor 40 mg daily and aspirin 81 mg daily. Holding lisinopril secondary to renal insufficiency. Patient likely has CKD. Await old records from outside facility in [place]. LifeVest initially ordered but then canceled per Cardiology. Pt is currently euvolemic and will d/c with PO Lasix 40mg daily, Coreg 12.5mg BID, Hydralazine 50mg BID and Imdur 30mg daily. No ACEI/ARB due to renal fxn. Pt may be discharged. Follow-up with Dr. To in 1-2 weeks ([phone]). D/C time 35min Disposition: 01 HOME / SELF CARE / HOMELESS Final Discharge Diagnosis (Prints w/discharge instructions): acute systolic HF, HTN, CAD Core Measure Documentation - Palliative Care Palliative Care/ Comfort Measures: Not Applicable - Core Measures Any of the following diagnoses?: heart failure - Heart Failure Discharge Requirements LUCIANO/ARB for LVSD if EF <40%: No Reason for no LUCIANO/ARB: Renal impairment Beta rubens at discharge: Yes Exam - Constitutional Vitals: Temp Pulse Resp BP Pulse Ox 98.7 F 72 18 144/101 100 12/31/20 12:00 12/31/20 12:00 12/31/20 12:00 12/31/20 12:00 12/31/20 12:00 General appearance: Present: no acute distress, well-nourished - EENT Eyes: Present: PERRL ENT: hearing intact, clear oral mucosa - Neck Neck: Present: supple, normal ROM - Respiratory Respiratory effort: normal Respiratory: bilateral: CTA - Cardiovascular Heart Sounds: Present: S1 & S2. Absent: rub, click - Extremities Extremities: pulses symmetrical, No edema Peripheral Pulses: within normal limits - Abdominal General gastrointestinal: Present: soft, non-tender, non-distended, normal bowel sounds Male genitourinary: Present: normal - Integumentary Integumentary: Present: clear, warm, dry - Musculoskeletal Musculoskeletal: gait normal, strength equal bilaterally - Psychiatric Psychiatric: appropriate mood/affect, intact judgment & insight - Neurologic Neurologic: CNII-XII intact, moves all extremities Plan Activity: advance as tolerated Weight Bearing Status: Full Weight Bearing Diet: low fat, low cholesterol, low salt Follow up with: PRIMARY MD LEVON [Primary Care Provider] - 7 Days JESU QUILES MD [Staff Physician] - 7 Days Prescriptions: amLODIPine 10 mg PO DAILY #30 hydrALAZINE [Apresoline TAB] 50 mg PO BID #60 tablet Aspirin [Aspirin BABY CHEW TAB] 81 mg PO DAILY #30 carvediloL [Coreg] 12.5 mg PO BID #60 tablet ISOSORBIDE MONOnitrate [Imdur ER] 30 mg PO QDAY #30 tablet Furosemide [Lasix] 40 mg PO DAILY #30 AtorvaSTATin [Lipitor] 40 mg PO QHS #30 tablet Potassium Chloride 10 meq PO BID #60
[2020-12-31] MEDS ORDERED: hydrALAZINE 25 MG TAB PO SCH (14:00)
[2020-12-31 16:39] VITALS: BP 137/99
== END 2020-12-31 19:53 | disposition home or self-care (01) | DRG 291 ==
LOC: ED 15:19 → 4A 12-28 03:24
PROVIDERS: ADMIT Internal Medicine Geriatric Medicine; ATTEND Hospitalist
DX: I13.0 Hypertensive heart and chronic kidney disease with heart failure and stage 1 through stage 4 chronic kidney disease, or unspecified chronic kidney disease (principal); I50.23 Acute on chronic systolic (congestive) heart failure; N17.9 Acute kidney failure, unspecified; I27.20 Pulmonary hypertension, unspecified; N18.9 Chronic kidney disease, unspecified; I16.0 Hypertensive urgency; I25.10 Atherosclerotic heart disease of native coronary artery without angina pectoris; Z95.5 Presence of coronary angioplasty implant and graft; I25.2 Old myocardial infarction; Z82.49 Family history of ischemic heart disease and other diseases of the circulatory system; Z88.2 Allergy status to sulfonamides; Z91.14 Patient's other noncompliance with medication regimen
CPT/HCPCS: 36415; 71046; 80048; 80053; 80061; 83880; 84484; 85025; 93005; 93306; 94640; G0378; A9270-GY; J1644; J1940

== ENCOUNTER 2021-05-04 16:42 | Inpatient (IN) | payer SELFPAY ==
--- NOTE | 2021-05-04 17:54 | XRay Report ---
CHEST 1 VIEW INDICATION / CLINICAL INFORMATION: chest pain, shortness of breath. COMPARISON: Chest radiograph 12/27/2020 FINDINGS: SUPPORT DEVICES: None. HEART / MEDIASTINUM: Stable cardiomegaly. LUNGS / PLEURA: No significant pulmonary or pleural abnormality. No pneumothorax. ADDITIONAL FINDINGS: No significant additional findings. IMPRESSION: 1. Stable cardiomegaly. No acute abnormality. Signer Name: Kelli oDwns MD Signed: 05/04/2021 5:50 PM Workstation Name: [email or web address]
[2021-05-04] MEDS ORDERED: NITROGLYCERIN 2% OINT 1 GM TP ONE (18:03)
[2021-05-04] MEDS ORDERED: fentaNYL 100 MCG/2 ML INJ IV ONE (18:03)
[2021-05-04] MEDS ORDERED: ASPIRIN 325 MG TAB PO ONE (18:03)
[2021-05-04] MEDS ORDERED: ONDANSETRON 4 MG/2 ML INJ IV ONE (18:03)
--- NOTE | 2021-05-04 18:08 | Emergency Department Report ---
HPI - General Chief Complaint: Chest Pain Time Seen by Provider: 05/04/21 17:04 - HPI HPI: Room 7 The patient is a 56-year-old male present with a chief complaint of chest pain. Patient states for the past 3 days he has had intermittent left-sided chest pain described as sharpness in nature. Patient states he has had shortness of breath, diaphoresis and nausea/vomiting associated with his pain. Patient states over the past 1.5 weeks he has noticed worsening edema to his bilateral lower extremities up to his groin. The patient states his marine firefighter instructed him to double up on his Lasix approximately 3 to 4 days ago which he has been compliant with but has not improved his symptoms. Patient denies history of fever. Patient states he has has numbness of the left upper extremity with his chest pain. Patient states he has had a total of 6 cardiac stents placed with the last 2 being placed approximately 1-2 years ago ED Past Medical Hx - Past Medical History Hx Hypertension: Yes Hx Heart Attack/AMI: Yes Hx Congestive Heart Failure: Yes - Surgical History Hx Coronary Stent: Yes (X6) - Family History Family history: no significant - Social History Smoking Status: Former Smoker (None x30 years) Substance Use Type: None (Denies illicit drug use) - Medications Home Medications: Home Medications Medication Instructions Recorded Confirmed Last Taken Type Clopidogrel [Plavix] 75 mg PO DAILY 12/29/20 12/29/20 Unknown History Aspirin [Aspirin BABY CHEW TAB] 81 mg PO DAILY #30 12/31/20 Unknown Rx Aspirin [Aspirin BABY CHEW TAB] 81 mg PO QDAY tab.chew 12/31/20 Unknown Rx AtorvaSTATin [Lipitor] 40 mg PO QHS #30 tablet 12/31/20 Unknown Rx Furosemide [Lasix TAB] 40 mg PO DAILY@0600 tablet 12/31/20 Unknown Rx Furosemide [Lasix] 40 mg PO DAILY #30 12/31/20 Unknown Rx Furosemide [Lasix] 40 mg PO DAILY #30 tablet 12/31/20 Unknown Rx ISOSORBIDE MONOnitrate [Imdur ER] 30 mg PO QDAY #30 tablet 12/31/20 Unknown Rx Potassium Chloride 10 meq PO BID #60 12/31/20 Unknown Rx Potassium Chloride [K-Dur] 10 meq PO QDAY #30 tablet 12/31/20 Unknown Rx amLODIPine 10 mg PO DAILY #30 12/31/20 Unknown Rx carvediloL [Coreg] 12.5 mg PO BID #60 tablet 12/31/20 Unknown Rx hydrALAZINE [Apresoline TAB] 50 mg PO BID #60 tablet 12/31/20 Unknown Rx ED Review of Systems ROS: Stated complaint: CHEST PAIN/SOB Other details as noted in HPI Constitutional: diaphoresis. denies: fever Eyes: denies: eye pain ENT: denies: throat pain Respiratory: shortness of breath, SOB with exertion Cardiovascular: chest pain Endocrine: no symptoms reported Gastrointestinal: nausea, vomiting Musculoskeletal: denies: back pain Neurological: denies: headache Physical Exam - Physical Exam Vital Signs: Vital Signs 05/04/21 16:43 Temperature 97.7 F Pulse Rate 82 Respiratory 14 Rate Blood Pressure 144/88 [Left] O2 Sat by Pulse 97 Oximetry Physical Exam: GENERAL: The patient is well-developed well-nourished male lying on stretcher not appearing to be in acute distress. [] HEENT: Normocephalic. Atraumatic. Extraocular motions are intact. Patient has moist mucous membranes. NECK: Supple. Trachea midline CHEST/LUNGS: Clear to auscultation. There is no respiratory distress noted. HEART/CARDIOVASCULAR: Regular. There is no tachycardia. There is no gallop rub or murmur. ABDOMEN: Abdomen is soft, nontender. Patient has normal bowel sounds. There is no abdominal distention. SKIN: There is no rash. There is 1-2+ bilateral lower extremity pitting edema. There is no diaphoresis. NEURO: The patient is awake, alert, and oriented. The patient is cooperative. The patient has no focal neurologic deficits. The patient has normal speech. GCS 15 MUSCULOSKELETAL:There is no evidence of acute injury. ED Course Vital Signs 05/04/21 16:43 Temperature 97.7 F Pulse Rate 82 Respiratory 14 Rate Blood Pressure 144/88 [Left] O2 Sat by Pulse 97 Oximetry - Consultations Consultation #1: 05/04/21 19:09 Case discussed with marine firefighter Dr. Huston- recommends admitting the patient for acute systolic heart failure initiating Lasix 40 mg IV twice daily ED Medical Decision Making - Lab Data Result diagrams: 05/04/21 17:32 05/04/21 17:32 Laboratory Tests 05/04/21 05/04/21 05/04/21 17:32 17:32 17:32 WBC 7.0 RBC 4.58 Hgb 13.9 Hct 43.4 MCV 95 H MCH 30 MCHC 32 RDW 15.5 H Plt Count 218 Lymph % (Auto) 14.4 [place] % (Auto) 6.5 Eos % (Auto) 1.6 Baso % (Auto) 0.7 Lymph # (Auto) 1.0 L [place] # (Auto) 0.5 Eos # (Auto) 0.1 Baso # (Auto) 0.0 Seg Neutrophils % 76.8 H Seg Neutrophils # 5.4 PT 13.8 INR 0.96 Sodium 139 Potassium 3.6 Chloride 104.3 Carbon Dioxide 23 Anion Gap 15 BUN 28 H Creatinine 1.8 H Estimated GFR 48 BUN/Creatinine Ratio 16 Glucose 94 Calcium 8.5 Total Creatine Kinase 178 H CK-MB (CK-2) 3.1 CK-MB (CK-2) Rel Index 1.7 Troponin T NT-Pro-B Natriuret Pep 05/04/21 17:32 WBC RBC Hgb Hct MCV MCH MCHC RDW Plt Count Lymph % (Auto) [place] % (Auto) Eos % (Auto) Baso % (Auto) Lymph # (Auto) [place] # (Auto) Eos # (Auto) Baso # (Auto) Seg Neutrophils % Seg Neutrophils # PT INR Sodium Potassium Chloride Carbon Dioxide Anion Gap BUN Creatinine Estimated GFR BUN/Creatinine Ratio Glucose Calcium Total Creatine Kinase CK-MB (CK-2) CK-MB (CK-2) Rel Index Troponin T < 0.010 NT-Pro-B Natriuret Pep 4663 H - EKG Data -: EKG Interpreted by Me EKG shows normal: sinus rhythm Rate: normal - EKG Data When compared to previous EKG there are: no significant change, previous EKG unavailable Interpretation: unchanged when compared t (12/27/2020) - Radiology Data Radiology results: report reviewed (Chest x-ray), image reviewed (Chest x-ray) interpreted by me: Chest x-ray-no definite focal infiltrates, no pneumothorax [facility] [address] [place] [address] XRay Report Signed Patient: MO FLOREZ MR#: [id number] 36 : 1965 Acct:[id number] Age/Sex: 56 / M ADM Date: 05/04/21 Loc: ED Attending Dr: Ordering Physician: SETH COOPER MD Date of Service: 05/04/21 Procedure(s): XR chest 1V ap Accession Number(s): [id number] cc: SETH COOPER MD Fluoro Time In Minutes: CHEST 1 VIEW INDICATION / CLINICAL INFORMATION: chest pain, shortness of breath. COMPARISON: Chest radiograph 12/27/2020 FINDINGS: SUPPORT DEVICES: None. HEART / MEDIASTINUM: Stable cardiomegaly. LUNGS / PLEURA: No significant pulmonary or pleural abnormality. No pneumothorax. ADDITIONAL FINDINGS: No significant additional findings. IMPRESSION: 1. Stable cardiomegaly. No acute abnormality. Signer Name: Kelli Downs MD Signed: 05/04/2021 5:50 PM Workstation Name: [id number] Transcribed By: HRC Dictated By: Kelli Downs MD Electronically Authenticated By: Kelli Downs MD Signed Date/Time: 05/04/211749 DD/ 47 TD/TT: Print Cancel - Differential Diagnosis ACS, CHF exacerbation, pericarditis, GERD Critical care attestation.: If time is entered above; I have spent that time in minutes in the direct care of this critically ill patient, excluding procedure time. ED Disposition Clinical Impression: Chest pain, Acute on chronic HFrEF (heart failure with reduced ejection fraction) Disposition: 09 ADMITTED INPATIENT Is pt being admited?: Yes Does the pt Need Aspirin: Yes Condition: Fair Instructions: Nonspecific Chest Pain, Adult Time of Disposition: 18:32 (Hospitalist called (Dr. Enriquez)) Heart Score - HEART Score History: Moderately suspicious EKG: Non-specific Age: 45-65 Risk factors: 1-2 risk factors Troponin: < normal limit HEART Score: 4 - EKG Read Time Time EKG Completed: 18:05 EKG Read Time: 18:13
[2021-05-04 18:11] LABS: Basophils % (Auto) 0.7 % (0.0-1.8); Eosinophils # (Auto) 0.1 K/mm3 (0.0-0.4); Eosinophils % (Auto) 1.6 % (0.0-4.3); Hematocrit 43.4 % (35.5-45.6); Hemoglobin 13.9 gm/dl (11.8-15.2); Lymphocytes % (Auto) 14.4 % (13.4-35.0); Mean Corpuscular HGB Conc 32 % (32-34); Mean Corpuscular Volume 95 fl (84-94); Monocytes # (Auto) 0.5 K/mm3 (0.0-0.8); Monocytes % (Auto) 6.5 % (0.0-7.3); Platelet Count 218 K/mm3 (140-440); Red Blood Count 4.58 M/mm3 (3.65-5.03); Red Cell Distribution Width 15.5 % (13.2-15.2)
[2021-05-04 18:17] LABS: Creatine Kinase MB 3.1 ng/mL (0.0-4.0)
[2021-05-04 18:18] LABS: Calcium 8.5 mg/dL (8.4-10.2)
[2021-05-04 18:21] LABS: INR 0.96 (0.87-1.13)
[2021-05-04] MEDS ORDERED: ALBUTEROL 2.5 MG/3 ML NEBU IH PRN (19:38)
[2021-05-04] MEDS ORDERED: ONDANSETRON 4 MG/2 ML INJ IV PRN (19:38)
[2021-05-04] MEDS ORDERED: ACETAMINOPHEN 325 MG TAB PO PRN (19:38)
--- NOTE | 2021-05-04 19:41 | History and Physical Report ---
History of Present Illness Chief complaint: My chest hurts and I cannot breathe History of present illness: 56 YO Male with CHF (EF 10%), DC with Life Vest in place, CAD S/P Stent placement on DAPT, HTN presents to ED for evaluation. Patient reports "my chest hurts, and I cannot breathe". Patient states that he has experienced chest pain over the past 3 days. Patient states the pain is 4-5/10, intermittent, sharp in nature, associated with shortness of breath, associated with diaphoresis, associated with nausea. Patient also acknowledges lower extremity edema with worsening symptoms over the past 2 weeks, orthopnea, paroxysmal nocturnal dyspnea, dyspnea at rest, as well as decreased exercise tolerance. Patient was instructed by his offset pressman to increased diuresis. Patient states that he was compliant with his medication but failed outpatient therapy with worsening of the aforementioned symptoms. Patient transported to [facility] for further care and evaluation. The patient was seen and evaluated in the emergency department. All lab and imaging studies reviewed. Patient found to have clinical symptoms consistent with CHF decompensation, angina at rest, as well as pulmonary hypertension. Patient admitted to telemetry and initiated on CHF protocol. Cardiology team consulted in ED. Patient denies fever, chills, productive cough, skin rash, recent ill contacts, known exposure to COVID-19. Prior admission on 12/28/2020 reviewed. All medication listed at time of admission has been reconciled. Advanced care planning conducted in ED. Past History Past Medical History: acute DC, CAD, heart failure, hypertension, other (See HPI) Past Surgical History: Other (Cardiac stent placement) Social history: single. denies: smoking, alcohol abuse Family history: diabetes, hypertension Medications and Allergies Allergies Allergy/AdvReac Type Severity Reaction Status Date / Time Sulfa (Sulfonamide Allergy Anaphylaxis Verified 05/04/21 16:46 Antibiotics) Home Medications Medication Instructions Recorded Confirmed Last Taken Type Clopidogrel [Plavix] 75 mg PO DAILY 12/29/20 12/29/20 Unknown History Aspirin [Aspirin BABY CHEW TAB] 81 mg PO DAILY #30 12/31/20 Unknown Rx Aspirin [Aspirin BABY CHEW TAB] 81 mg PO QDAY tab.chew 12/31/20 Unknown Rx AtorvaSTATin [Lipitor] 40 mg PO QHS #30 tablet 12/31/20 Unknown Rx Furosemide [Lasix TAB] 40 mg PO DAILY@0600 tablet 12/31/20 Unknown Rx Furosemide [Lasix] 40 mg PO DAILY #30 12/31/20 Unknown Rx Furosemide [Lasix] 40 mg PO DAILY #30 tablet 12/31/20 Unknown Rx ISOSORBIDE MONOnitrate [Imdur ER] 30 mg PO QDAY #30 tablet 12/31/20 Unknown Rx Potassium Chloride 10 meq PO BID #60 12/31/20 Unknown Rx Potassium Chloride [K-Dur] 10 meq PO QDAY #30 tablet 12/31/20 Unknown Rx amLODIPine 10 mg PO DAILY #30 12/31/20 Unknown Rx carvediloL [Coreg] 12.5 mg PO BID #60 tablet 12/31/20 Unknown Rx hydrALAZINE [Apresoline TAB] 50 mg PO BID #60 tablet 12/31/20 Unknown Rx Active Meds: Active Medications Acetaminophen (Acetaminophen 325 Mg Tab) 650 mg PO Q4H PRN PRN Reason: Pain MILD(1-3)/Fever >100.5/VILLALOBOS Albuterol (Albuterol 2.5 Mg/3 Ml Nebu) 2.5 mg IH Q4HRT PRN PRN Reason: Shortness Of Breath Furosemide (Furosemide 40 Mg/4 Ml Inj) 40 mg IV BID TOMER Heparin Sodium (Porcine) (Heparin 5,000 Unit/1 Ml Vial) 5,000 unit SUB-Q Q12HR TOMER Hydromorphone HCl (Hydromorphone 1 Mg/1 Ml Inj) 0.5 mg IV Q23H PRN PRN Reason: Pain , Severe (7-10) Ondansetron HCl (Ondansetron 4 Mg/2 Ml Inj) 4 mg IV Q8H PRN PRN Reason: Nausea And Vomiting Oxycodone/Acetaminophen (Oxycodone /Acetaminophen 5-325mg Tab) 1 tab PO Q16H PRN PRN Reason: Pain, Moderate (4-6) Sodium Chloride (Sodium Chloride 0.9% 10 Ml Flush Syringe) 10 ml IV BID TOMER Sodium Chloride (Sodium Chloride 0.9% 10 Ml Flush Syringe) 10 ml IV PRN PRN PRN Reason: LINE FLUSH Review of Systems Constitutional: weight gain, no weight loss, no fever, no chills Ears, nose, mouth and throat: no ear pain, no ear discharge, no tinnitis, no nose pain, no nasal congestion, no nasal discharge Cardiovascular: chest pain, orthopnea, shortness of breath, dyspnea on exertion, paroxysmal nocturnal dyspnea, leg edema, decreased exercise tolerance Respiratory: no cough, no cough with sputum, no excessive sputum, no hemoptysis Gastrointestinal: nausea, no vomiting, no diarrhea Genitourinary Male: no hematuria, no flank pain, no discharge, no urinary frequency, no urinary hesitancy Rectal: no pain, no incontinence, no bleeding Musculoskeletal: no neck stiffness, no neck pain, no shooting arm pain, no arm numbness/tingling, no leg numbness/tingling Integumentary: no rash, no pruritis, no redness, no sores, no wounds Neurological: no transient paralysis, no paralysis, no weakness, no parathesias, no tingling, no seizures Psychiatric: no anxiety, no change in sleep habits, no sleep disturbances, no hypersomnia, no suicidal ideation Endocrine: no excessive thirst, no polydipsia, no polyuria, no nocturia, no excessive sweating Hematologic/Lymphatic: no easy bruising, no easy bleeding, no lymphadenopathy Allergic/Immunologic: no persistent infections, no anaphylaxis Exam - Constitutional Vitals: Temp Pulse Resp BP Pulse Ox 97.7 F 72 19 151/94 100 05/04/21 16:43 05/04/21 19:30 05/04/21 19:30 05/04/21 19:30 05/04/21 19:30 General appearance: Present: mild distress - EENT Eyes: Present: PERRL ENT: hearing intact, clear oral mucosa - Neck Neck: Present: supple, masses or JVD - Respiratory Respiratory effort: normal Respiratory: bilateral: CTA, rales - Cardiovascular Heart Sounds: Present: S1 & S2. Absent: rub, click - Extremities Extremities: pulses symmetrical Extremity abnormal: edema Peripheral Pulses: within normal limits - Abdominal General gastrointestinal: Present: soft, non-tender, non-distended, normal bowel sounds Male genitourinary: Present: normal - Integumentary Integumentary: Present: clear, warm, dry - Musculoskeletal Musculoskeletal: gait normal, strength equal bilaterally - Psychiatric Psychiatric: appropriate mood/affect, intact judgment & insight - Neurologic Neurologic: CNII-XII intact, moves all extremities HEART Score - HEART Score EKG: Non-specific Age: 45-65 Risk factors: 1-2 risk factors Troponin: Troponin T < 0.010 ng/mL (0.00-0.029) 05/04/21 17:32 Troponin: < normal limit Results - Labs CBC & Chem 7: 05/04/21 17:32 05/04/21 17:32 Labs: Abnormal lab results 05/04/21 05/04/21 05/04/21 Range/Units 17:32 17:32 17:32 MCV 95 H (84-94) fl RDW 15.5 H (13.2-15.2) % Lymph # (Auto) 1.0 L (1.2-5.4) K/mm3 Seg Neutrophils % 76.8 H (40.0-70.0) % BUN 28 H (9-20) mg/dL Creatinine 1.8 H (0.8-1.3) mg/dL Total Creatine Kinase 178 H (55-170) units/L NT-Pro-B Natriuret Pep 4663 H (0-900) pg/mL Assessment and Plan - Patient Problems (1) CHF (congestive heart failure) Status: Acute Qualifiers: Heart failure type: unspecified Heart failure chronicity: acute on chronic Qualified Code(s): I50.9 - Heart failure, unspecified Plan to address problem: Strict I's/O, monitor urine output every shift, daily weight, blood pressure control, supplemental oxygen, afterload reduction, diuresis with Lasix, echocardiogram from 12/31 reviewed. Cardiology team consulted in ED. (2) CAD (coronary artery disease) Status: Chronic Plan to address problem: Risk factor reduction therapy, continue dual antiplatelet therapy, supportive care. (3) HTN (hypertension) Status: Chronic Qualifiers: Hypertension type: primary hypertension Qualified Code(s): I10 - Essential (primary) hypertension Plan to address problem: Monitor blood pressure every shift, continue medical management. (4) DVT prophylaxis Status: Acute Plan to address problem: SCD to bilateral lower extremities while in bed, prophylactic anticoagulation (5) Advance care planning Status: Acute Plan to address problem: Disease education conducted, care plan discussed, diagnoses discussed, prognosis discussed, patient is full code. Patient acknowledges understanding and a greement with care plan. +30 minutes.
[2021-05-04] MEDS ORDERED: carvediloL 12.5 MG TAB PO SCH (22:00)
[2021-05-04] MEDS: FUROSEMIDE 40 MG/4 ML INJ IV SCH (22:51)
[2021-05-04] MEDS: hydrALAZINE 25 MG TAB PO SCH (22:51)
[2021-05-04] MEDS: HEPARIN 5,000 UNIT/1 ML VIAL SUB-Q SCH (22:51)
[2021-05-05 07:17] LABS: Calcium 7.8 mg/dL (8.4-10.2)
[2021-05-05] MEDS: FUROSEMIDE 40 MG/4 ML INJ IV SCH ×2 (09:37→21:54)
[2021-05-05] MEDS: HEPARIN 5,000 UNIT/1 ML VIAL SUB-Q SCH ×2 (09:37→21:54)
[2021-05-05] MEDS: CLOPIDOGREL 75 MG TAB PO SCH (09:38)
[2021-05-05] MEDS: POTASSIUM CHLORIDE ER 10 MEQ TAB PO SCH (09:38)
--- NOTE | 2021-05-05 09:58 | Progress Note ---
Assessment and Plan Assessment and plan: Acute systolic heart failure. EF 10%. Coronary artery disease Hypertension Chronic kidney disease. 05/05/2021. Echocardiogram from 12/31 revealed dilated left ventricle with EF of 10%. Mild concentric LVH. Left atrium is moderately dilated. Right atrium severely dilated with moderate tricuspid regurgitation. Biventricular failure. RVSP 68 mmHg. Continue Norvasc, Coreg, hydralazine and Imdur. Cardiology consultation pending. No LUCIANO/ARB given renal insufficiency/chronic kidney disease. History Interval history: No new issues overnight. Hospitalist Physical - Constitutional Vitals: Temp Pulse Resp BP Pulse Ox 97.9 F 72 18 114/73 94 05/05/21 07:16 05/05/21 09:37 05/05/21 07:16 05/05/21 09:37 05/05/21 07:16 General appearance: Present: no acute distress - EENT Eyes: Present: PERRL, EOM intact ENT: hearing intact, clear oral mucosa, dentition normal - Neck Neck: Present: supple, normal ROM - Respiratory Respiratory effort: normal Respiratory: bilateral: CTA - Cardiovascular Rhythm: regular Heart Sounds: Present: S1 & S2. Absent: gallop, rub - Extremities Extremities: no ischemia, No edema, Full ROM - Abdominal General gastrointestinal: soft, non-tender, non-distended, normal bowel sounds - Integumentary Integumentary: Present: clear, warm, dry - Neurologic Neurologic: CNII-XII intact, moves all extremities HEART Score - HEART Score EKG: Non-specific Age: 45-65 Risk factors: 1-2 risk factors Troponin: Troponin T < 0.010 ng/mL (0.00-0.029) 05/04/21 17:32 Troponin: < normal limit Results - Labs CBC & Chem 7: 05/04/21 17:32 05/05/21 05:33 Labs: Laboratory Last Values WBC 7.0 K/mm3 (4.5-11.0) 05/04/21 17:32 RBC 4.58 M/mm3 (3.65-5.03) 05/04/21 17:32 Hgb 13.9 gm/dl (11.8-15.2) 05/04/21 17:32 Hct 43.4 % (35.5-45.6) 05/04/21 17:32 MCV 95 fl (84-94) H 05/04/21 17:32 MCH 30 pg (28-32) 05/04/21 17:32 MCHC 32 % (32-34) 05/04/21 17:32 RDW 15.5 % (13.2-15.2) H 05/04/21 17:32 Plt Count 218 K/mm3 (140-440) 05/04/21 17:32 Lymph % (Auto) 14.4 % (13.4-35.0) 05/04/21 17:32 [place] % (Auto) 6.5 % (0.0-7.3) 05/04/21 17:32 Eos % (Auto) 1.6 % (0.0-4.3) 05/04/21 17:32 Baso % (Auto) 0.7 % (0.0-1.8) 05/04/21 17:32 Lymph # (Auto) 1.0 K/mm3 (1.2-5.4) L 05/04/21 17:32 [place] # (Auto) 0.5 K/mm3 (0.0-0.8) 05/04/21 17:32 Eos # (Auto) 0.1 K/mm3 (0.0-0.4) 05/04/21 17:32 Baso # (Auto) 0.0 K/mm3 (0.0-0.1) 05/04/21 17:32 Seg Neutrophils % 76.8 % (40.0-70.0) H 05/04/21 17:32 Seg Neutrophils # 5.4 K/mm3 (1.8-7.7) 05/04/21 17:32 PT 13.8 Sec. (12.2-14.9) 05/04/21 17:32 INR 0.96 (0.87-1.13) 05/04/21 17:32 Sodium 141 mmol/L (137-145) 05/05/21 05:33 Potassium 3.2 mmol/L (3.6-5.0) L 05/05/21 05:33 Chloride 105.2 mmol/L (98-107) 05/05/21 05:33 Carbon Dioxide 23 mmol/L (22-30) 05/05/21 05:33 Anion Gap 16 mmol/L 05/05/21 05:33 BUN 28 mg/dL (9-20) H 05/05/21 05:33 Creatinine 2.0 mg/dL (0.8-1.3) H 05/05/21 05:33 Estimated GFR 42 ml/min 05/05/21 05:33 BUN/Creatinine Ratio 14 % 05/05/21 05:33 Glucose 90 mg/dL (75-100) 05/05/21 05:33 Calcium 7.8 mg/dL (8.4-10.2) L 05/05/21 05:33 Total Creatine Kinase 178 units/L (55-170) H 05/04/21 17:32 CK-MB (CK-2) 3.1 ng/mL (0.0-4.0) 05/04/21 17:32 CK-MB (CK-2) Rel Index 1.7 (0-4) 05/04/21 17:32 Troponin T < 0.010 ng/mL (0.00-0.029) 05/04/21 17:32 NT-Pro-B Natriuret Pep 4663 pg/mL (0-900) H 05/04/21 17:32 Active Medications - Current Medications Current Medications: Generic Name Dose Route Start Last Admin Trade Name Freq PRN Reason Stop Dose Admin Acetaminophen 650 mg 05/04/21 19:38 Acetaminophen 325 Mg Tab PO Q4H PRN Pain MILD(1-3)/Fever >100.5/VILLALOBOS Albuterol 2.5 mg 05/04/21 19:38 Albuterol 2.5 Mg/3 Ml Nebu IH Q4HRT PRN Shortness Of Breath Amlodipine Besylate 10 mg 05/05/21 10:00 05/05/21 09:37 Amlodipine 10 Mg Tab PO 10 mg DAILY TOMER Administration Aspirin 81 mg 05/05/21 10:00 Aspirin 81 Mg Tab Chew PO DAILY TOMER Atorvastatin Calcium 40 mg 05/04/21 22:00 05/04/21 22:51 Atorvastatin 40 Mg Tab PO 40 mg QHS TOMER Administration Clopidogrel Bisulfate 75 mg 05/05/21 10:00 05/05/21 09:38 Clopidogrel 75 Mg Tab PO 75 mg DAILY TOMER Administration Furosemide 40 mg 05/04/21 22:00 05/05/21 09:37 Furosemide 40 Mg/4 Ml Inj IV 40 mg BID TOMER Administration Heparin Sodium (Porcine) 5,000 unit 05/04/21 22:00 05/05/21 09:37 Heparin 5,000 Unit/1 Ml Vial SUB-Q 5,000 unit Q12HR TOMER Administration Hydralazine HCl 50 mg 05/04/21 22:00 05/04/21 22:51 Hydralazine 25 Mg Tab PO 50 mg BID TOMER Administration Hydromorphone HCl 0.5 mg 05/04/21 19:38 Hydromorphone 1 Mg/1 Ml Inj IV Q23H PRN Pain , Severe (7-10) Dobutamine HCl/Dextrose 500 mg in 250 mls @ 6.872 mls/hr 05/05/21 10:00 Dobutrex Drip 500mg/D5w 250ml IV 05/07/21 09:59 DIRECT TOMER Protocol 2.5 MCG/KG/MIN Isosorbide Mononitrate 30 mg 05/05/21 10:00 Isosorbide Mononitrate Er 30 Mg Tab PO QDAY [facility] Ondansetron HCl 4 mg 05/04/21 19:38 Ondansetron 4 Mg/2 Ml Inj IV Q8H PRN Nausea And Vomiting Oxycodone/Acetaminophen 1 tab 05/04/21 19:38 Oxycodone /Acetaminophen 5-325mg Tab PO Q16H PRN Pain, Moderate (4-6) Potassium Chloride 10 meq 05/05/21 10:00 05/05/21 09:38 Potassium Chloride Er 10 Meq Tab PO 10 meq QDAY TOMER Administration Sodium Chloride 10 ml 05/04/21 22:00 05/05/21 09:43 Sodium Chloride 0.9% 10 Ml Flush Syringe IV 10 ml BID TOMER Administration Sodium Chloride 10 ml 05/04/21 19:38 Sodium Chloride 0.9% 10 Ml Flush Syringe IV PRN PRN LINE FLUSH
[2021-05-05] MEDS ORDERED: amLODIPine 10 MG TAB PO SCH (10:00)
[2021-05-05] MEDS: DOBUTamine/D5W 500 MG/250 ML 500 MG/250 ML BAG IV SCH (11:02)
--- NOTE | 2021-05-05 12:41 | Consultation ---
History of Present Illness Consult date: 05/05/21 Requesting physician: MARI QUIJANO Consult reason: congestive heart failure History of present illness: 56-year-old male with known coronary arterial disease ischemic cardiomyopathy last echo shows EF of 20% follows up in the office with me been having progressive shortness of breath with exertion. Despite medical treatment. Patient wears a LifeVest. Has acute on chronic renal sufficiency. Patient presents to the hospital worsening shortness of breath received IV Lasix. Shortness of breath has mildly improved. Atypical chest pain. No nausea no vomiting no syncope or lightheadedness Past History Past Medical History: acute [place], CAD, heart failure, hypertension, other (See HPI) Past Surgical History: Other (Cardiac stent placement) Social history: single. denies: smoking, alcohol abuse Family history: diabetes, hypertension Medications and Allergies Allergies Allergy/AdvReac Type Severity Reaction Status Date / Time Sulfa (Sulfonamide Allergy Anaphylaxis Verified 05/04/21 16:46 Antibiotics) Home Medications Medication Instructions Recorded Confirmed Last Taken Type Clopidogrel [Plavix] 75 mg PO DAILY 12/29/20 12/29/20 Unknown History Aspirin [Aspirin BABY CHEW TAB] 81 mg PO DAILY #30 12/31/20 Unknown Rx Aspirin [Aspirin BABY CHEW TAB] 81 mg PO QDAY tab.chew 12/31/20 Unknown Rx AtorvaSTATin [Lipitor] 40 mg PO QHS #30 tablet 12/31/20 Unknown Rx Furosemide [Lasix TAB] 40 mg PO DAILY@0600 tablet 12/31/20 Unknown Rx Furosemide [Lasix] 40 mg PO DAILY #30 12/31/20 Unknown Rx Furosemide [Lasix] 40 mg PO DAILY #30 tablet 12/31/20 Unknown Rx ISOSORBIDE MONOnitrate [Imdur ER] 30 mg PO QDAY #30 tablet 12/31/20 Unknown Rx Potassium Chloride 10 meq PO BID #60 12/31/20 Unknown Rx Potassium Chloride [K-Dur] 10 meq PO QDAY #30 tablet 12/31/20 Unknown Rx amLODIPine 10 mg PO DAILY #30 12/31/20 Unknown Rx carvediloL [Coreg] 12.5 mg PO BID #60 tablet 12/31/20 Unknown Rx hydrALAZINE [Apresoline TAB] 50 mg PO BID #60 tablet 12/31/20 Unknown Rx Active Meds: Active Medications Acetaminophen (Acetaminophen 325 Mg Tab) 650 mg PO Q4H PRN PRN Reason: Pain MILD(1-3)/Fever >100.5/VILLALOBOS Albuterol (Albuterol 2.5 Mg/3 Ml Nebu) 2.5 mg IH Q4HRT PRN PRN Reason: Shortness Of Breath Aspirin (Aspirin 81 Mg Tab Chew) 81 mg PO DAILY [facility] Atorvastatin Calcium (Atorvastatin 40 Mg Tab) 40 mg PO QHS [facility] Last Admin: 05/04/21 22:51 Dose: 40 mg Documented by: Clopidogrel Bisulfate (Clopidogrel 75 Mg Tab) 75 mg PO DAILY [facility] Last Admin: 05/05/21 09:38 Dose: 75 mg Documented by: Furosemide (Furosemide 40 Mg/4 Ml Inj) 40 mg IV BID [facility] Last Admin: 05/05/21 09:37 Dose: 40 mg Documented by: Heparin Sodium (Porcine) (Heparin 5,000 Unit/1 Ml Vial) 5,000 unit SUB-Q Q12HR [facility] Last Admin: 05/05/21 09:37 Dose: 5,000 unit Documented by: Hydralazine HCl (Hydralazine 25 Mg Tab) 50 mg PO BID [facility] Last Admin: 05/04/21 22:51 Dose: 50 mg Documented by: Hydromorphone HCl (Hydromorphone 1 Mg/1 Ml Inj) 0.5 mg IV Q23H PRN PRN Reason: Pain , Severe (7-10) Dobutamine HCl/Dextrose (Dobutrex Drip 500mg/D5w 250ml) 500 mg in 250 mls @ 6.872 mls/hr IV DIRECT TOMER; Protocol Stop: 05/07/21 09:59 Last Admin: 05/05/21 11:02 Dose: 2.5 mcg/kg/min, 6.872 mls/hr Documented by: Isosorbide Mononitrate (Isosorbide Mononitrate Er 30 Mg Tab) 30 mg PO QDAY [facility] Ondansetron HCl (Ondansetron 4 Mg/2 Ml Inj) 4 mg IV Q8H PRN PRN Reason: Nausea And Vomiting Oxycodone/Acetaminophen (Oxycodone /Acetaminophen 5-325mg Tab) 1 tab PO Q16H [place] N PRN Reason: Pain, Moderate (4-6) Potassium Chloride (Potassium Chloride Er 10 Meq Tab) 10 meq PO QDAY [facility] Last Admin: 05/05/21 09:38 Dose: 10 meq Documented by: Sodium Chloride (Sodium Chloride 0.9% 10 Ml Flush Syringe) 10 ml IV BID TOMER Last Admin: 05/05/21 09:43 Dose: 10 ml Documented by: Sodium Chloride (Sodium Chloride 0.9% 10 Ml Flush Syringe) 10 ml IV PRN PRN PRN Reason: LINE FLUSH Review of Systems All systems: negative (As per the HPI) Physical Examination Vital Signs Temp Pulse Resp BP Pulse Ox 97.7 F 82 14 144/88 97 05/04/21 16:43 05/04/21 16:43 05/04/21 16:43 05/04/21 16:43 05/04/21 16:43 General appearance: no acute distress, well-nourished HEENT: Positive: PERRL, Mucus Membranes Moist Neck: Positive: neck supple, trachea midline Cardiac: Positive: Reg Rate and Rhythm, S1/S2. Negative: Audible Murmur Lungs: Positive: clear to auscultation, Normal Breath Sounds Neuro: Positive: Grossly Intact Abdomen: Positive: Soft, Active Bowel Sounds. Negative: Tender, Distended Male genitourinary: Positive: normal Skin: Positive: Clear Incision: Cardiac Cath Site Musculoskeletal: No Pain, Normal Range of Motion Extremities: Present: normal, edema, +1 Edema Results 05/04/21 17:32 05/05/21 05:33 Cardiac Enzymes 05/04/21 Range/Units 17:32 CK-MB (CK-2) 3.1 (0.0-4.0) ng/mL Coagulation 05/04/21 Range/Units 17:32 PT 13.8 (12.2-14.9) Sec. INR 0.96 (0.87-1.13) CBC 05/04/21 Range/Units 17:32 WBC 7.0 (4.5-11.0) K/mm3 RBC 4.58 (3.65-5.03) M/mm3 Hgb 13.9 (11.8-15.2) gm/dl Hct 43.4 (35.5-45.6) % Plt Count 218 (140-440) K/mm3 Lymph # (Auto) 1.0 L (1.2-5.4) K/mm3 [place] # (Auto) 0.5 (0.0-0.8) K/mm3 Eos # (Auto) 0.1 (0.0-0.4) K/mm3 Baso # (Auto) 0.0 (0.0-0.1) K/mm3 Comprehensive Metabolic Panel 05/04/21 05/05/21 Range/Units 17:32 05:33 Sodium 139 141 (137-145) mmol/L Potassium 3.6 3.2 L (3.6-5.0) mmol/L Chloride 104.3 105.2 (98-107) mmol/L Carbon Dioxide 23 23 (22-30) mmol/L BUN 28 H 28 H (9-20) mg/dL Creatinine 1.8 H 2.0 H (0.8-1.3) mg/dL Glucose 94 90 (75-100) mg/dL Calcium 8.5 7.8 L (8.4-10.2) mg/dL - Imaging and Cardiology Stress echo: report reviewed (10/2020 in [place], no signficant ischemia large anterior infaraction ) Echo: report reviewed (12/2020 severe lv dsyfunction ef 10-15% ) EKG interpretations - Telemetry EKG Rhythm: Sinus Rhythm (nst t wave inversion) Assessment and Plan 56-year-old male with ischemic cardiomyopathy EF 10 to 15% coronary arterial disease hypertension acute on chronic renal sufficiency has decompensated systolic heart failure continue IV Lasix hold amlodipine. Hold carvedilol as we start patient on dobutamine 2.5 mg monitor lab work. - Patient Problems (1) Hyperlipemia, mixed Current Visit: Yes Status: Chronic (2) Acute on chronic HFrEF (heart failure with reduced ejection fraction) Current Visit: No Status: Acute (3) CHF (congestive heart failure) Current Visit: No Status: Acute Qualifiers: Heart failure type: unspecified Heart failure chronicity: acute on chronic Qualified Code(s): I50.9 - Heart failure, unspecified (4) CAD (coronary artery disease) Current Visit: No Status: Chronic Qualifiers: Coronary Disease-Associated Artery/Lesion type: [place] artery [place] vs. transplanted heart: [place] heart Associated angina: without angina Qualified Code(s): I25.10 - Atherosclerotic heart disease of [place] coronary artery without angina pectoris (5) Cardiomyopathy Current Visit: No Status: Chronic Qualifiers: Cardiomyopathy type: ischemic Qualified Code(s): I25.5 - Ischemic cardiomyopathy (6) HTN (hypertension) Current Visit: No Status: Chronic Qualifiers: Hypertension type: primary hypertension Qualified Code(s): I10 - Essential (primary) hypertension (7) CKD (chronic kidney disease) Current Visit: No Status: Suspected Qualifiers: Chronic kidney disease stage: stage 3 (moderate)
[2021-05-05] MEDS: ASPIRIN 81 MG TAB CHEW PO SCH (14:40)
[2021-05-05] MEDS: hydrALAZINE 25 MG TAB PO SCH ×2 (14:41→21:52)
[2021-05-05] MEDS: oxyCODONE /ACETAMINOPHEN 5-325MG TAB PO PRN (23:04)
[2021-05-06 06:22] LABS: Calcium 7.9 mg/dL (8.4-10.2)
--- NOTE | 2021-05-06 09:52 | Progress Note ---
Assessment and Plan Assessment and plan: Acute systolic heart failure. EF 10%. Coronary artery disease Hypertension Chronic kidney disease. 05/05/2021. Echocardiogram from 12/31 revealed dilated left ventricle with EF of 10%. Mild concentric LVH. Left atrium is moderately dilated. Right atrium severely dilated with moderate tricuspid regurgitation. Biventricular failure. RVSP 68 mmHg. Continue Norvasc, Coreg, hydralazine and Imdur. Cardiology consultation pending. No LUCIANO/ARB given renal insufficiency/chronic kidney disease. 05/06/2021. Cardiology initiated dobutamine drip for 24-48 hours. Continue aspirin, Plavix, Lipitor, hydralazine, Lasix and Imdur. Coreg and amlodipine on hold. History Interval history: No new issues overnight. Hospitalist Physical - Constitutional Vitals: Temp Pulse Resp BP Pulse Ox 97.8 F 78 18 134/88 97 05/06/21 08:02 05/06/21 08:02 05/06/21 08:02 05/06/21 08:02 05/06/21 08:02 General appearance: Present: no acute distress, well-nourished - EENT Eyes: Present: PERRL, EOM intact ENT: hearing intact, clear oral mucosa, dentition normal - Neck Neck: Present: supple, normal ROM - Respiratory Respiratory effort: normal Respiratory: bilateral: CTA - Cardiovascular Rhythm: regular Heart Sounds: Present: S1 & S2. Absent: gallop, rub - Extremities Extremities: no ischemia, No edema, Full ROM - Abdominal General gastrointestinal: soft, non-tender, non-distended, normal bowel sounds - Integumentary Integumentary: Present: clear, warm, dry - Neurologic Neurologic: CNII-XII intact, moves all extremities HEART Score - HEART Score EKG: Non-specific Age: 45-65 Risk factors: 1-2 risk factors Troponin: Troponin T < 0.010 ng/mL (0.00-0.029) 05/04/21 17:32 Troponin: < normal limit Results - Labs CBC & Chem 7: 05/04/21 17:32 05/06/21 05:20 Labs: Laboratory Last Values WBC 7.0 K/mm3 (4.5-11.0) 05/04/21 17:32 RBC 4.58 M/mm3 (3.65-5.03) 05/04/21 17:32 Hgb 13.9 gm/dl (11.8-15.2) 05/04/21 17:32 Hct 43.4 % (35.5-45.6) 05/04/21 17:32 MCV 95 fl (84-94) H 05/04/21 17:32 MCH 30 pg (28-32) 05/04/21 17:32 MCHC 32 % (32-34) 05/04/21 17:32 RDW 15.5 % (13.2-15.2) H 05/04/21 17:32 Plt Count 218 K/mm3 (140-440) 05/04/21 17:32 Lymph % (Auto) 14.4 % (13.4-35.0) 05/04/21 17:32 [place] % (Auto) 6.5 % (0.0-7.3) 05/04/21 17:32 Eos % (Auto) 1.6 % (0.0-4.3) 05/04/21 17:32 Baso % (Auto) 0.7 % (0.0-1.8) 05/04/21 17:32 Lymph # (Auto) 1.0 K/mm3 (1.2-5.4) L 05/04/21 17:32 [place] # (Auto) 0.5 K/mm3 (0.0-0.8) 05/04/21 17:32 Eos # (Auto) 0.1 K/mm3 (0.0-0.4) 05/04/21 17:32 Baso # (Auto) 0.0 K/mm3 (0.0-0.1) 05/04/21 17:32 Seg Neutrophils % 76.8 % (40.0-70.0) H 05/04/21 17:32 Seg Neutrophils # 5.4 K/mm3 (1.8-7.7) 05/04/21 17:32 PT 13.8 Sec. (12.2-14.9) 05/04/21 17:32 INR 0.96 (0.87-1.13) 05/04/21 17:32 Sodium 142 mmol/L (137-145) 05/06/21 05:20 Potassium 3.6 mmol/L (3.6-5.0) 05/06/21 05:20 Chloride 107.4 mmol/L (98-107) H 05/06/21 05:20 Carbon Dioxide 22 mmol/L (22-30) 05/06/21 05:20 Anion Gap 16 mmol/L 05/06/21 05:20 BUN 31 mg/dL (9-20) H 05/06/21 05:20 Creatinine 1.9 mg/dL (0.8-1.3) H 05/06/21 05:20 Estimated GFR 45 ml/min 05/06/21 05:20 BUN/Creatinine Ratio 16 % 05/06/21 05:20 Glucose 81 mg/dL (75-100) 05/06/21 05:20 Calcium 7.9 mg/dL (8.4-10.2) L 05/06/21 05:20 Magnesium 2.00 mg/dL (1.7-2.3) 05/06/21 05:20 Total Creatine Kinase 178 units/L (55-170) H 05/04/21 17:32 CK-MB (CK-2) 3.1 ng/mL (0.0-4.0) 05/04/21 17:32 CK-MB (CK-2) Rel Index 1.7 (0-4) 05/04/21 17:32 Troponin T < 0.010 ng/mL (0.00-0.029) 05/04/21 17:32 NT-Pro-B Natriuret Pep 4663 pg/mL (0-900) H 05/04/21 17:32 Jospeh/IV: Voiding Method Urinal Active Medications - Current Medications Current Medications: Generic Name Dose Route Start Last Admin Trade Name Freq PRN Reason Stop Dose Admin Acetaminophen 650 mg 05/04/21 19:38 Acetaminophen 325 Mg Tab PO Q4H PRN Pain MILD(1-3)/Fever >100.5/VILLALOBOS Albuterol 2.5 mg 05/04/21 19:38 Albuterol 2.5 Mg/3 Ml Nebu IH Q4HRT PRN Shortness Of Breath Aspirin 81 mg 05/05/21 10:00 05/05/21 14:40 Aspirin 81 Mg Tab Chew PO 81 mg DAILY TOMER Administration Atorvastatin Calcium 40 mg 05/04/21 22:00 05/05/21 21:54 Atorvastatin 40 Mg Tab PO 40 mg QHS TOMER Administration Clopidogrel Bisulfate 75 mg 05/05/21 10:00 05/05/21 09:38 Clopidogrel 75 Mg Tab PO 75 mg DAILY TOMER Administration Furosemide 40 mg 05/04/21 22:00 05/05/21 21:54 Furosemide 40 Mg/4 Ml Inj IV 40 mg BID TOMER Administration Heparin Sodium (Porcine) 5,000 unit 05/04/21 22:00 05/05/21 21:54 Heparin 5,000 Unit/1 Ml Vial SUB-Q 5,000 unit Q12HR TOMER Administration Hydralazine HCl 50 mg 05/04/21 22:00 05/05/21 21:52 Hydralazine 25 Mg Tab PO 50 mg BID TOMER Administration Hydromorphone HCl 0.5 mg 05/04/21 19:38 Hydromorphone 1 Mg/1 Ml Inj IV Q23H PRN Pain , Severe (7-10) Dobutamine HCl/Dextrose 500 mg in 250 mls @ 6.872 mls/hr 05/05/21 10:00 05/05/21 11:02 Dobutrex Drip 500mg/D5w 250ml IV 05/07/21 09:59 2.5 mcg/kg/min DIRECT TOMER 6.872 mls/hr Administration Protocol 2.5 MCG/KG/MIN Isosorbide Mononitrate 30 mg 05/05/21 10:00 05/05/21 14:40 Isosorbide Mononitrate Er 30 Mg Tab PO 30 mg QDAY TOMER Administration Ondansetron HCl 4 mg 05/04/21 19:38 Ondansetron 4 Mg/2 Ml Inj IV Q8H PRN Nausea And Vomiting Oxycodone/Acetaminophen 1 tab 05/04/21 19:38 05/05/21 23:04 Oxycodone /Acetaminophen 5-325mg Tab PO 1 tab Q16H PRN Administration Pain, Moderate (4-6) Potassium Chloride 10 meq 05/05/21 10:00 05/05/21 09:38 Potassium Chloride Er 10 Meq Tab PO 10 meq QDAY TOMER Administration Sodium Chloride 10 ml 05/04/21 22:00 05/05/21 21:56 Sodium Chloride 0.9% 10 Ml Flush Syringe IV 10 ml BID TOMER Administration Sodium Chloride 10 ml 05/04/21 19:38 Sodium Chloride 0.9% 10 Ml Flush Syringe IV PRN PRN LINE FLUSH
[2021-05-06] MEDS: POTASSIUM CHLORIDE ER 10 MEQ TAB PO SCH (10:45)
[2021-05-06] MEDS: CLOPIDOGREL 75 MG TAB PO SCH (10:45)
[2021-05-06] MEDS: FUROSEMIDE 40 MG/4 ML INJ IV SCH ×2 (10:45→21:42)
[2021-05-06] MEDS: HEPARIN 5,000 UNIT/1 ML VIAL SUB-Q SCH ×2 (10:45→21:42)
[2021-05-06] MEDS: ASPIRIN 81 MG TAB CHEW PO SCH (10:45)
[2021-05-06] MEDS: hydrALAZINE 25 MG TAB PO SCH (10:46)
[2021-05-06] MEDS: oxyCODONE /ACETAMINOPHEN 5-325MG TAB PO PRN (10:51)
--- NOTE | 2021-05-06 11:25 | Progress Note ---
Assessment and Plan 56-year-old male with ischemic cardiomyopathy EF 10 to 15% coronary arterial disease hypertension acute on chronic renal sufficiency has decompensated systolic heart failure continue IV Lasix hold amlodipine. Increase hydralazine 100 mg twice a day patient feels better with the current dose of dobutamine stopped in the morning. 11 beat of nonsustained ventricular tachycardia patient is wearing LifeVest. Check a.m. lab - Patient Problems (1) Hyperlipemia, mixed Current Visit: Yes Status: Chronic (2) Acute on chronic HFrEF (heart failure with reduced ejection fraction) Current Visit: No Status: Acute (3) CHF (congestive heart failure) Current Visit: No Status: Acute Qualifiers: Heart failure type: unspecified Heart failure chronicity: acute on chronic Qualified Code(s): I50.9 - Heart failure, unspecified (4) CAD (coronary artery disease) Current Visit: No Status: Chronic Qualifiers: Coronary Disease-Associated Artery/Lesion type: [place] artery [place] vs. transplanted heart: [place] heart Associated angina: without angina Qualified Code(s): I25.10 - Atherosclerotic heart disease of [place] coronary artery without angina pectoris (5) Cardiomyopathy Current Visit: No Status: Chronic Qualifiers: Cardiomyopathy type: ischemic Qualified Code(s): I25.5 - Ischemic cardiomyopathy (6) HTN (hypertension) Current Visit: No Status: Chronic Qualifiers: Hypertension type: primary hypertension Qualified Code(s): I10 - Essential (primary) hypertension (7) CKD (chronic kidney disease) Current Visit: No Status: Suspected Qualifiers: Chronic kidney disease stage: stage 3 (moderate) Subjective Date of service: 05/06/21 Principal diagnosis: chf Interval history: sob is beter and swelling improved Objective Vital Signs Temp Pulse Pulse Resp BP Pulse Ox 05/06/21 08:02 97.8 F 78 18 134/88 97 05/06/21 04:30 75 154/79 98 05/06/21 04:16 97.8 F 71 18 115/80 96 05/06/21 00:00 75 05/05/21 23:44 97 05/05/21 23:41 97.8 F 70 18 120/74 97 05/05/21 22:00 64 100 05/05/21 21:52 64 110/65 05/05/21 20:12 98.3 F 74 18 171/49 100 05/05/21 20:06 98.4 F 64 18 110/65 96 05/05/21 16:00 78 05/05/21 14:40 78 114/75 05/05/21 14:28 98.0 F 78 18 114/75 95 05/05/21 12:00 100 - Physical Examination General: No Apparent Distress HEENT: Positive: PERRL, Mucus Membranes Moist Neck: Positive: neck supple, trachea midline Cardiac: Positive: Reg Rate and Rhythm Lungs: Positive: Normal Breath Sounds Neuro: Positive: Grossly Intact Abdomen: Positive: Soft, Active Bowel Sounds. Negative: Tender, Distended Skin: Positive: Clear Incision: Cardiac Cath Site Musculoskeletal: No Pain, Normal Range of Motion Extremities: Present: normal, edema, +1 Edema - Labs and Meds Comprehensive Metabolic Panel 05/06/21 Range/Units 05:20 Sodium 142 (137-145) mmol/L Potassium 3.6 (3.6-5.0) mmol/L Chloride 107.4 H (98-107) mmol/L Carbon Dioxide 22 (22-30) mmol/L BUN 31 H (9-20) mg/dL Creatinine 1.9 H (0.8-1.3) mg/dL Glucose 81 (75-100) mg/dL Calcium 7.9 L (8.4-10.2) mg/dL - Imaging and Cardiology Stress echo: report reviewed (10/2020 in [place], no signficant ischemia large anterior infaraction ) Echo: report reviewed (12/2020 severe lv dsyfunction ef 10-15% ) - Telemetry EKG Rhythm: Sinus Rhythm (11 beat non sustatined vtach)
[2021-05-06] MEDS ORDERED: MAGNESIUM SULFATE 2 GM/50 ML BAG IV ONE (13:24)
[2021-05-06] MEDS: hydrALAZINE 100 MG TAB PO SCH ×2 (14:07→21:42)
[2021-05-06] MEDS: HYDROmorphone 1 MG/1 ML INJ IV PRN (17:06)
[2021-05-06] MEDS: DOBUTamine/D5W 500 MG/250 ML 500 MG/250 ML BAG IV SCH (21:39)
[2021-05-07 09:06] LABS: BUN/Creatinine Ratio 13; Blood Urea Nitrogen 18 mg/dL (9-20); Calcium 8.1 mg/dL (8.4-10.2); Hemolysis Index 6
--- NOTE | 2021-05-07 09:38 | Progress Note ---
Assessment and Plan Assessment and plan: Acute systolic heart failure. EF 10%. Coronary artery disease Hypertension Chronic kidney disease. 05/05/2021. Echocardiogram from 12/31 revealed dilated left ventricle with EF of 10%. Mild concentric LVH. Left atrium is moderately dilated. Right atrium severely dilated with moderate tricuspid regurgitation. Biventricular failure. RVSP 68 mmHg. Continue Norvasc, Coreg, hydralazine and Imdur. Cardiology consultation pending. No LUCIANO/ARB given renal insufficiency/chronic kidney disease. 05/06/2021. Cardiology initiated dobutamine drip for 24-48 hours. Continue aspirin, Plavix, Lipitor, hydralazine, Lasix and Imdur. Coreg and amlodipine on hold. 05/07/2021. Continue dobutamine per cardiology recommendations. Continue aspirin, Plavix, Lipitor, hydralazine, Lasix and Imdur. Coreg and amlodipine on hold. Hydralazine increased to 100 mg twice daily. Patient with 11 beat of non sustained ventricular tachycardia yesterday. Patient is wearing LifeVest. History Interval history: No new issues overnight. Hospitalist Physical - Constitutional Vitals: Temp Pulse Resp BP Pulse Ox 98.5 F 93 H 18 136/85 95 05/07/21 05:03 05/07/21 05:03 05/07/21 05:03 05/07/21 05:03 05/07/21 05:03 General appearance: Present: no acute distress, well-nourished - EENT Eyes: Present: PERRL, EOM intact ENT: hearing intact, clear oral mucosa, dentition normal - Neck Neck: Present: supple, normal ROM - Respiratory Respiratory effort: normal Respiratory: bilateral: CTA - Cardiovascular Rhythm: regular Heart Sounds: Present: S1 & S2. Absent: gallop, rub - Extremities Extremities: no ischemia, No edema, Full ROM - Abdominal General gastrointestinal: soft, non-tender, non-distended, normal bowel sounds - Integumentary Integumentary: Present: clear, warm, dry - Neurologic Neurologic: CNII-XII intact, moves all extremities HEART Score - HEART Score EKG: Non-specific Age: 45-65 Risk factors: 1-2 risk factors Troponin: Troponin T < 0.010 ng/mL (0.00-0.029) 05/04/21 17:32 Troponin: < normal limit Results - Labs CBC & Chem 7: 05/04/21 17:32 05/07/21 08:25 Labs: Laboratory Last Values WBC 7.0 K/mm3 (4.5-11.0) 05/04/21 17:32 RBC 4.58 M/mm3 (3.65-5.03) 05/04/21 17:32 Hgb 13.9 gm/dl (11.8-15.2) 05/04/21 17:32 Hct 43.4 % (35.5-45.6) 05/04/21 17:32 MCV 95 fl (84-94) H 05/04/21 17:32 MCH 30 pg (28-32) 05/04/21 17: MCHC 32 % (32-34) 05/04/21 17:32 RDW 15.5 % (13.2-15.2) H 05/04/21 17:32 Plt Count 218 K/mm3 (140-440) 05/04/21 17:32 Lymph % (Auto) 14.4 % (13.4-35.0) 05/04/21 17:32 [place] % (Auto) 6.5 % (0.0-7.3) 05/04/21 17:32 Eos % (Auto) 1.6 % (0.0-4.3) 05/04/21 17:32 Baso % (Auto) 0.7 % (0.0-1.8) 05/04/21 17:32 Lymph # (Auto) 1.0 K/mm3 (1.2-5.4) L 05/04/21 17:32 [place] # (Auto) 0.5 K/mm3 (0.0-0.8) 05/04/21 17:32 Eos # (Auto) 0.1 K/mm3 (0.0-0.4) 05/04/21 17:32 Baso # (Auto) 0.0 K/mm3 (0.0-0.1) 05/04/21 17:32 Seg Neutrophils % 76.8 % (40.0-70.0) H 05/04/21 17:32 Seg Neutrophils # 5.4 K/mm3 (1.8-7.7) 05/04/21 17:32 PT 13.8 Sec. (12.2-14.9) 05/04/21 17:32 INR 0.96 (0.87-1.13) 05/04/21 17:32 Sodium 139 mmol/L (137-145) 05/07/21 08:25 Potassium 3.0 mmol/L (3.6-5.0) L 05/07/21 08:25 Chloride 102.4 mmol/L (98-107) 05/07/21 08:25 Carbon Dioxide 24 mmol/L (22-30) 05/07/21 08:25 Anion Gap 16 mmol/L 05/07/21 08:25 BUN 18 mg/dL (9-20) 05/07/21 08:25 Creatinine 1.4 mg/dL (0.8-1.3) H 05/07/21 08:25 Estimated GFR > 60 ml/min 05/07/21 08:25 BUN/Creatinine Ratio 13 % 05/07/21 08:25 Glucose 86 mg/dL (75-100) 05/07/21 08:25 Calcium 8.1 mg/dL (8.4-10.2) L 05/07/21 08:25 Magnesium 1.90 mg/dL (1.7-2.3) 05/07/21 08:25 Total Creatine Kinase 178 units/L (55-170) H 05/04/21 17:32 CK-MB (CK-2) 3.1 ng/mL (0.0-4.0) 05/04/21 17:32 CK-MB (CK-2) Rel Index 1.7 (0-4) 05/04/21 17:32 Troponin T < 0.010 ng/mL (0.00-0.029) 05/04/21 17:32 NT-Pro-B Natriuret Pep 4663 pg/mL (0-900) H 05/04/21 17:32 Joseph/IV: Voiding Method Urinal Active Medications - Current Medications Current Medications: Generic Name Dose Route Start Last Admin Trade Name Freq PRN Reason Stop Dose Admin Acetaminophen 650 mg 05/04/21 19:38 Acetaminophen 325 Mg Tab PO Q4H PRN Pain MILD(1-3)/Fever >100.5/VILLALOBOS Albuterol 2.5 mg 05/04/21 19:38 Albuterol 2.5 Mg/3 Ml Nebu IH Q4HRT PRN Shortness Of Breath Aspirin 81 mg 05/05/21 10:00 05/06/21 10:45 Aspirin 81 Mg Tab Chew PO 81 mg DAILY TOMER Administration Atorvastatin Calcium 40 mg 05/04/21 22:00 05/06/21 21:42 Atorvastatin 40 Mg Tab PO 40 mg QHS TOMER Administration Clopidogrel Bisulfate 75 mg 05/05/21 10:00 05/06/21 10:45 Clopidogrel 75 Mg Tab PO 75 mg DAILY TOMER Administration Furosemide 40 mg 05/04/21 22:00 05/06/21 21:42 Furosemide 40 Mg/4 Ml Inj IV 40 mg BID TOMER Administration Heparin Sodium (Porcine) 5,000 unit 05/04/21 22:00 05/06/21 21:42 Heparin 5,000 Unit/1 Ml Vial SUB-Q 5,000 unit Q12HR TOMER Administration Hydralazine HCl 100 mg 05/06/21 12:23 05/06/21 21:42 Hydralazine 100 Mg Tab PO 100 mg BID TOMER Administration Hydromorphone HCl 0.5 mg 05/04/21 19:38 05/06/21 17:06 Hydromorphone 1 Mg/1 Ml Inj IV 0.5 mg Q23H PRN Administration Pain , Severe (7-10) Dobutamine HCl/Dextrose 500 mg in 250 mls @ 6.872 mls/hr 05/05/21 10:00 05/06/21 21:39 Dobutrex Drip 500mg/D5w 250ml IV 05/07/21 09:59 2.5 mcg/kg/min DIRECT TOMER 6.872 mls/hr Administration Protocol 2.5 MCG/KG/MIN Isosorbide Mononitrate 30 mg 05/05/21 10:00 05/06/21 10:46 Isosorbide Mononitrate Er 30 Mg Tab PO 30 mg QDAY TOMER Administration Ondansetron HCl 4 mg 05/04/21 19:38 Ondansetron 4 Mg/2 Ml Inj IV Q8H PRN Nausea And Vomiting Oxycodone/Acetaminophen 1 tab 05/04/21 19:38 05/06/21 10:51 Oxycodone /Acetaminophen 5-325mg Tab PO 1 tab Q16H PRN Administration Pain, Moderate (4-6) Potassium Chloride 10 meq 05/05/21 10:00 05/06/21 10:45 Potassium Chloride Er 10 Meq Tab PO 10 meq QDAY TOMER Administration Potassium Chloride 40 meq 05/07/21 09:34 Potassium Chloride Er 20 Meq Tab PO 05/07/21 09:35 ONCE ONE Sodium Chloride 10 ml 05/04/21 22:00 05/06/21 21:43 Sodium Chloride 0.9% 10 Ml Flush Syringe IV 10 ml BID TOMER Administration Sodium Chloride 10 ml 05/04/21 19:38 Sodium Chloride 0.9% 10 Ml Flush Syringe IV PRN PRN LINE FLUSH
[2021-05-07] MEDS: ASPIRIN 81 MG TAB CHEW PO SCH (09:55)
[2021-05-07] MEDS: hydrALAZINE 100 MG TAB PO SCH ×2 (09:55→22:38)
[2021-05-07] MEDS: FUROSEMIDE 40 MG/4 ML INJ IV SCH (09:55)
[2021-05-07] MEDS: CLOPIDOGREL 75 MG TAB PO SCH (09:55)
[2021-05-07] MEDS: POTASSIUM CHLORIDE ER 10 MEQ TAB PO SCH (09:55)
[2021-05-07] MEDS: HEPARIN 5,000 UNIT/1 ML VIAL SUB-Q SCH ×2 (09:58→22:38)
--- NOTE | 2021-05-07 11:42 | Progress Note ---
Assessment and Plan 56-year-old male with ischemic cardiomyopathy EF 10 to 15% coronary arterial disease hypertension acute on chronic renal sufficiency has decompensated systolic heart failure we will stop dobutamine as patient is feeling much better no more leg edema. Transition to oral Lasix. Continue hydralazine 100 mg twice a day Imdur 30. Restart carvedilol 25 mg twice a day. Supplemental hypokalemia. Recheck labs in the morning. Transition to ambulatory status. Possible discharge in a.m. patient has an appointment on Saturday with [facility] heart failure clinic - Patient Problems (1) Hyperlipemia, mixed Current Visit: Yes Status: Chronic (2) Acute on chronic HFrEF (heart failure with reduced ejection fraction) Current Visit: No Status: Acute (3) CHF (congestive heart failure) Current Visit: No Status: Acute Qualifiers: Heart failure type: unspecified Heart failure chronicity: acute on chronic Qualified Code(s): I50.9 - Heart failure, unspecified (4) CAD (coronary artery disease) Current Visit: No Status: Chronic Qualifiers: Coronary Disease-Associated Artery/Lesion type: [place] artery [place] vs. transplanted heart: [place] heart Associated angina: without angina Qualified Code(s): I25.10 - Atherosclerotic heart disease of [place] coronary artery without angina pectoris (5) Cardiomyopathy Current Visit: No Status: Chronic Qualifiers: Cardiomyopathy type: ischemic Qualified Code(s): I25.5 - Ischemic cardiomyopathy (6) HTN (hypertension) Current Visit: No Status: Chronic Qualifiers: Hypertension type: primary hypertension Qualified Code(s): I10 - Essential (primary) hypertension (7) CKD (chronic kidney disease) Current Visit: No Status: Suspected Qualifiers: Chronic kidney disease stage: stage 3 (moderate) Subjective Date of service: 05/07/21 Principal diagnosis: chf Interval history: feeling better no more swelling Objective Vital Signs Temp Pulse Resp BP Pulse Ox 05/07/21 10:11 99 05/07/21 10:00 93 H 96 05/07/21 07:55 98.2 F 92 H 18 142/86 96 05/07/21 05:03 98.5 F 93 H 18 136/85 95 05/07/21 00:29 100 05/07/21 00:23 97.3 F L 79 18 133/75 97 05/06/21 22:00 98 05/06/21 21:23 97.7 F 80 20 149/94 98 05/06/21 16:03 98.9 F 87 18 127/86 96 - Physical Examination General: No Apparent Distress HEENT: Positive: PERRL, Mucus Membranes Moist Neck: Positive: neck supple, trachea midline Cardiac: Positive: Reg Rate and Rhythm Lungs: Positive: clear to auscultation Neuro: Positive: Grossly Intact Abdomen: Positive: Soft, Active Bowel Sounds. Negative: Tender, Distended Skin: Positive: Clear Incision: Cardiac Cath Site Musculoskeletal: No Pain, Normal Range of Motion Extremities: Present: normal. Absent: edema - Labs and Meds Comprehensive Metabolic Panel 05/07/21 Range/Units 08:25 Sodium 139 (137-145) mmol/L Potassium 3.0 L (3.6-5.0) mmol/L Chloride 102.4 (98-107) mmol/L Carbon Dioxide 24 (22-30) mmol/L BUN 18 (9-20) mg/dL Creatinine 1.4 H (0.8-1.3) mg/dL Glucose 86 (75-100) mg/dL Calcium 8.1 L (8.4-10.2) mg/dL - Imaging and Cardiology Stress echo: report reviewed (10/2020 in [place], no signficant ischemia large anterior infaraction ) Echo: report reviewed (12/2020 severe lv dsyfunction ef 10-15% ) - Telemetry EKG Rhythm: Sinus Rhythm (no vtach in last 24 hours)
[2021-05-07] MEDS ORDERED: POTASSIUM CHLORIDE ER 20 MEQ TAB PO SCH (12:00)
[2021-05-07] MEDS: carvediloL 25 MG TAB PO SCH ×2 (14:03→22:38)
[2021-05-07] MEDS: oxyCODONE /ACETAMINOPHEN 5-325MG TAB PO PRN (20:19)
[2021-05-08 06:26] LABS: Basophils % (Auto) 0.5 % (0.0-1.8); Eosinophils # (Auto) 0.1 K/mm3 (0.0-0.4); Eosinophils % (Auto) 1.2 % (0.0-4.3); Hematocrit 44.4 % (35.5-45.6); Hemoglobin 13.8 gm/dl (11.8-15.2); Lymphocytes # (Auto) 0.9 K/mm3 (1.2-5.4); Lymphocytes % (Auto) 12.6 % (13.4-35.0); Mean Corpuscular HGB Conc 31 % (32-34); Mean Corpuscular Volume 96 fl (84-94); Monocytes # (Auto) 0.6 K/mm3 (0.0-0.8); Monocytes % (Auto) 8.6 % (0.0-7.3); Platelet Count 218 K/mm3 (140-440); Red Blood Count 4.61 M/mm3 (3.65-5.03); Red Cell Distribution Width 15.5 % (13.2-15.2)
[2021-05-08 06:31] LABS: Calcium 8.5 mg/dL (8.4-10.2)
[2021-05-08 08:07] VITALS: BP 157/95
[2021-05-08] MEDS: CLOPIDOGREL 75 MG TAB PO SCH (09:57)
[2021-05-08] MEDS: ASPIRIN 81 MG TAB CHEW PO SCH (09:57)
[2021-05-08] MEDS: POTASSIUM CHLORIDE ER 10 MEQ TAB PO SCH (09:57)
[2021-05-08] MEDS: hydrALAZINE 100 MG TAB PO SCH (09:57)
[2021-05-08] MEDS: carvediloL 25 MG TAB PO SCH (09:58)
[2021-05-08] MEDS: HEPARIN 5,000 UNIT/1 ML VIAL SUB-Q SCH (09:58)
[2021-05-08] MEDS ORDERED: FUROSEMIDE 40 MG TAB PO SCH (10:00)
--- NOTE | 2021-05-08 10:24 | Discharge Summary ---
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 Patient stated the pain is 4-5/10, intermittent, sharp in nature, associated with shortness of breath, associated with diaphoresis, associated with nausea. Patient also reported lower extremity edema with worsening symptoms over the past 2 weeks, orthopnea, paroxysmal nocturnal dyspnea, dyspnea at rest, as well as decreased exercise tolerance. Patient was instructed by his youth agent to increase diuresis. Patient stated that he was compliant with his medication but failed outpatient therapy with worsening of the aforementioned symptoms. Patient transported to [facility] for further care and evaluation. The patient was seen and evaluated in the emergency department. All lab and imaging studies reviewed. The patient was admitted with diagnosis of acute on chronic systolic heart failure exacerbation, acute hypoxic respiratory failure, coronary artery disease, hypertension and chronic kidney disease. Hospital course: 05/05/2021. Echocardiogram from 12/31 revealed dilated left ventricle with EF of 10%. Mild concentric LVH. Left atrium is moderately dilated. Right atrium severely dilated with moderate tricuspid regurgitation. Biventricular failure. RVSP 68 mmHg. Continue Norvasc, Coreg, hydralazine and Imdur. Cardiology consultation pending. No LUCIANO/ARB given renal insufficiency/chronic kidney disease. 05/06/2021. Cardiology initiated dobutamine drip for 24-48 hours. Continue aspirin, Plavix, Lipitor, hydralazine, Lasix and Imdur. Coreg and amlodipine on hold. 05/07/2021. Continue dobutamine per cardiology recommendations. Continue aspirin, Plavix, Lipitor, hydralazine, Lasix and Imdur. Coreg and amlodipine on hold. Hydralazine increased to 100 mg twice daily. Patient with 11 beat of nonsustained ventricular tachycardia yesterday. Patient is wearing LifeVest. 05/08/2021. Patient satting 97% on room air this morning. Patient denies any chest pain or shortness of breath. Patient has ambulated without dyspnea. Dobutamine drip has been discontinued. Patient is felt to receive maximal hospital benefit and will be discharged home if okay with cardiology. Dedicated discharge time 32 minutes Disposition: HOME / SELF CARE / HOMELESS Final Discharge Diagnosis (Prints w/discharge instructions): acute on chronic systolic heart failure exacerbation, acute hypoxic respiratory failure, coronary artery disease, hypertension and chronic kidney disease. Core Measure Documentation - Palliative Care Palliative Care/ Comfort Measures: Not Applicable - Core Measures Any of the following diagnoses?: heart failure - Heart Failure Discharge Requirements LUCIANO/ARB for LVSD if EF <40%: No Reason for no LUCIANO/ARB: Renal impairment Beta [place] at discharge: Yes Exam - Constitutional Vitals: Temp Pulse Resp BP Pulse Ox 98.7 F 85 16 157/95 97 05/08/21 08:03 05/08/21 08:03 05/08/21 08:03 05/08/21 08:03 05/08/21 08:31 General appearance: Present: no acute distress, well-nourished - EENT Eyes: Present: PERRL ENT: hearing intact, clear oral mucosa - Neck Neck: Present: supple, normal ROM - Respiratory Respiratory effort: normal Respiratory: bilateral: CTA - Cardiovascular Heart Sounds: Present: S1 & S2. Absent: rub, click - Extremities Extremities: pulses symmetrical, No edema Peripheral Pulses: within normal limits - Abdominal General gastrointestinal: Present: soft, non-tender, non-distended, normal bowel sounds Male genitourinary: Present: normal - Integumentary Integumentary: Present: clear, warm, dry - Musculoskeletal Musculoskeletal: gait normal, strength equal bilaterally - Psychiatric Psychiatric: appropriate mood/affect, intact judgment & insight - Neurologic Neurologic: CNII-XII intact, moves all extremities Plan Activity: advance as tolerated Weight Bearing Status: Weight Bear as Tolerated Diet: low fat, low cholesterol, low salt Follow up with: MAURICIO DOS SANTOS MD [Primary Care Provider] - 7 Days JESU QUILES MD [Staff Physician] - 7 Days Prescriptions: hydrALAZINE [Apresoline TAB] 100 mg PO BID #60 tab Aspirin [Aspirin BABY CHEW TAB] 81 mg PO DAILY #30 tab.chew carvediloL [Coreg] 25 mg PO BID #60 tablet ISOSORBIDE MONOnitrate [Imdur ER] 30 mg PO QDAY #30 tablet Potassium Chloride [K-Dur] 10 meq PO QDAY #30 tablet Furosemide [Lasix TAB] 40 mg PO BID #60 AtorvaSTATin [Lipitor] 40 mg PO QHS #30 tablet Clopidogrel [Plavix] 75 mg PO DAILY #30 Potassium Chloride 10 meq PO BID #60
--- NOTE | 2021-05-08 10:29 | Electrocardiograph Report ---
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
--- NOTE | 2021-05-08 11:39 | Progress Note ---
Assessment and Plan 56-year-old male with ischemic cardiomyopathy EF 10 to 15% coronary arterial disease hypertension acute on chronic renal sufficiency has decompensated systolic heart failure we will stop dobutamine as patient is feeling much better no more leg edema. Transition to oral Lasix. Continue hydralazine 100 mg twice a day Imdur 30. Restart carvedilol 25 mg twice a day. Supplemental hypokalemia. Recheck labs in the morning. Transition to ambulatory status. Possible discharge in a.m. patient has an appointment on Saturday with [facility] heart failure clinic Patient was admitted for heart failure received 48 hours of dobutamine. Loss 3 kg. We will stop amlodipine. Continue hydralazine 100 twice a day Imdur carvedilol 25 mg twice a day aspirin statin. Lasix 40 mg once a day. Patient's has chronic renal sufficiency baseline is 1.7-1.8. today 1.5. Hesitant for LUCIANO or ARB given renal sufficiency or Entresto. - Patient Problems (1) Hyperlipemia, mixed Current Visit: Yes Status: Chronic (2) Acute on chronic HFrEF (heart failure with reduced ejection fraction) Current Visit: No Status: Acute (3) CHF (congestive heart failure) Current Visit: No Status: Acute Qualifiers: Heart failure type: unspecified Heart failure chronicity: acute on chronic Qualified Code(s): I50.9 - Heart failure, unspecified (4) CAD (coronary artery disease) Current Visit: No Status: Chronic Qualifiers: Coronary Disease-Associated Artery/Lesion type: [place] artery [place] vs. transplanted heart: [place] heart Associated angina: without angina Qualified Code(s): I25.10 - Atherosclerotic heart disease of [place] coronary artery without angina pectoris (5) Cardiomyopathy Current Visit: No Status: Chronic Qualifiers: Cardiomyopathy type: ischemic Qualified Code(s): I25.5 - Ischemic cardiomyopathy (6) HTN (hypertension) Current Visit: No Status: Chronic Qualifiers: Hypertension type: primary hypertension Qualified Code(s): I10 - Essential (primary) hypertension (7) CKD (chronic kidney disease) Current Visit: No Status: Suspected Qualifiers: Chronic kidney disease stage: stage 3 (moderate) Subjective Date of service: 05/08/21 Principal diagnosis: chf Interval history: no more swelling and sob is improved able to walk 100 feet in hallway Objective Vital Signs Temp Pulse Resp BP Pulse Ox 05/08/21 08:31 97 05/08/21 08:03 98.7 F 85 16 157/95 97 05/08/21 05:57 98.5 F 83 18 149/98 94 05/08/21 01:33 98.5 F 77 18 118/84 96 05/07/21 22:00 98 05/07/21 21:02 98.6 F 87 20 138/83 96 - Physical Examination General: No Apparent Distress HEENT: Positive: PERRL, Mucus Membranes Moist Neck: Positive: neck supple, trachea midline Cardiac: Positive: Regular Rate Lungs: Positive: clear to auscultation Neuro: Positive: Grossly Intact Abdomen: Positive: Soft, Active Bowel Sounds. Negative: Tender, Distended Skin: Positive: Clear Incision: Cardiac Cath Site Musculoskeletal: No Pain, Normal Range of Motion Extremities: Present: normal. Absent: edema - Labs and Meds CBC 05/08/21 Range/Units 05:48 WBC 7.1 (4.5-11.0) K/mm3 RBC 4.61 (3.65-5.03) M/mm3 Hgb 13.8 (11.8-15.2) gm/dl Hct 44.4 (35.5-45.6) % Plt Count 218 (140-440) K/mm3 Lymph # (Auto) 0.9 L (1.2-5.4) K/mm3 [place] # (Auto) 0.6 (0.0-0.8) K/mm3 Eos # (Auto) 0.1 (0.0-0.4) K/mm3 Baso # (Auto) 0.0 (0.0-0.1) K/mm3 Comprehensive Metabolic Panel 05/08/21 Range/Units 05:48 Sodium 140 (137-145) mmol/L Potassium 3.8 D (3.6-5.0) mmol/L Chloride 102.9 (98-107) mmol/L Carbon Dioxide 25 (22-30) mmol/L BUN 16 (9-20) mg/dL Creatinine 1.5 H (0.8-1.3) mg/dL Glucose 90 (75-100) mg/dL Calcium 8.5 (8.4-10.2) mg/dL - Imaging and Cardiology Stress echo: report reviewed (10/2020 in [place], no signficant ischemia large anterior infaraction ) Echo: report reviewed (12/2020 severe lv dsyfunction ef 10-15% ) - Telemetry EKG Rhythm: Sinus Rhythm (no vtach)
[2021-05-08] MEDS: HYDROmorphone 1 MG/1 ML INJ IV PRN (12:50)
== END 2021-05-08 16:28 | disposition home or self-care (01) | DRG 291 ==
LOC: ED 16:42 → 4A 19:38
PROVIDERS: ADMIT Internal Medicine; ATTEND Hospitalist
DX: I13.0 Hypertensive heart and chronic kidney disease with heart failure and stage 1 through stage 4 chronic kidney disease, or unspecified chronic kidney disease (principal); I50.23 Acute on chronic systolic (congestive) heart failure; J96.01 Acute respiratory failure with hypoxia; N17.9 Acute kidney failure, unspecified; K21.9 Gastro-esophageal reflux disease without esophagitis; I25.10 Atherosclerotic heart disease of native coronary artery without angina pectoris; E78.2 Mixed hyperlipidemia; I25.5 Ischemic cardiomyopathy; N18.30 Chronic kidney disease, stage 3 unspecified; E87.6 Hypokalemia; I25.2 Old myocardial infarction; Z95.5 Presence of coronary angioplasty implant and graft; Z87.891 Personal history of nicotine dependence; Z83.3 Family history of diabetes mellitus; Z82.49 Family history of ischemic heart disease and other diseases of the circulatory system; Z88.2 Allergy status to sulfonamides
CPT/HCPCS: 36415; 71045; 80048; 82550; 82553; 83735; 83880; 84484; 85025; 85610; 93005; 94640; 94760; 99285; G0378; J1170; J1250; J1644; J1940; J2405; J3010; J3475

== ENCOUNTER 2021-07-13 13:05 | Inpatient (IN) | payer SELFPAY ==
[2021-07-13] MEDS ORDERED: HEPARIN 10,000 UNITS/10 ML VIAL IV PRN ×2 (13:51→13:52)
[2021-07-13] MEDS ORDERED: HEPARIN 10,000 UNIT/1 ML VIAL IV ONE (13:52)
[2021-07-13] MEDS ORDERED: HEPARIN 1,000 UNIT/1 ML VIAL IV ONE (13:52)
[2021-07-13] MEDS ORDERED: ONDANSETRON 4 MG/2 ML INJ IV ONE (13:53)
[2021-07-13] MEDS ORDERED: MORPHINE 4 MG/1 ML INJ IV ONE (13:53)
[2021-07-13] MEDS ORDERED: NITROPRUSSIDE 50 MG in DEXTROSE 5% IN WATER 248 ML IV ONE (13:55)
[2021-07-13] MEDS ORDERED: NITROGLYCERIN DRIP 50 MG/250 ML BOTTLE IV ONE (13:55)
--- NOTE | 2021-07-13 14:06 | Emergency Department Report ---
ED Chest Pain HPI - General Chief Complaint: Chest Pain Stated Complaint: CHEST PAIN Time Seen by Provider: 07/13/21 13:45 Source: patient Mode of arrival: Stretcher Limitations: No Limitations - History of Present Illness Initial Comments: 56-year-old male with a past medical history of CHF with a EF of 10%, CAD with "6 stents", and hypertension presents to the hospital complaining of chest pressure with central burning x2 hours. Pain is constant without aggravating alleviating factors. Patient complains of nausea with multiple episodes of vomiting. He denies shortness of breath. Patient states his pain is a 10 out of 10 despite receiving aspirin nitroglycerin x2 in route to the hospital. As per medical record patient had a LifeVest during his April 2021 admission (patient does not currently have a left wrist he denies receiving a AICD). Hx of nonsustained V. tach during admission as per medical record. 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 Patient states he is compliant with his medications Severity scale (0 -10): 9 - Related Data Previous Rx's Medication Instructions Recorded Last Taken Type Aspirin [Aspirin BABY CHEW TAB] 81 mg PO QDAY tab.chew 12/31/20 05/05/21 Rx Aspirin [Aspirin BABY CHEW TAB] 81 mg PO DAILY #30 tab.chew 05/08/21 Unknown Rx AtorvaSTATin [Lipitor] 40 mg PO QHS #30 tablet 05/08/21 Unknown Rx Clopidogrel [Plavix] 75 mg PO DAILY #30 05/08/21 Unknown Rx Furosemide [Lasix TAB] 40 mg PO BID #60 05/08/21 Unknown Rx ISOSORBIDE MONOnitrate [Imdur ER] 30 mg PO QDAY #30 tablet 05/08/21 Unknown Rx Potassium Chloride 10 meq PO BID #60 05/08/21 Unknown Rx Potassium Chloride [K-Dur] 10 meq PO QDAY #30 tablet 05/08/21 Unknown Rx carvediloL [Coreg] 25 mg PO BID #60 tablet 05/08/21 Unknown Rx hydrALAZINE [Apresoline TAB] 100 mg PO BID #60 tab 05/08/21 Unknown Rx Allergies Allergy/AdvReac Type Severity Reaction Status Date / Time Sulfa (Sulfonamide Allergy Anaphylaxis Verified 07/13/21 13:28 Antibiotics) Heart Score - HEART Score History: Moderately suspicious EKG: Significant ST-depression Age: 45-65 Risk factors: > 3 risk factors or hx of atherosclerotic disease Troponin: 1-3x normal limit HEART Score: 7 - EKG Read Time Time EKG Completed: 13:27 EKG Read Time: 13:46 ED Review of Systems ROS: Stated complaint: CHEST PAIN Other details as noted in HPI Comment: All other systems reviewed and negative ED Past Medical Hx - Past Medical History Previous Medical History?: Yes Hx Hypertension: Yes Hx Heart Attack/AMI: Yes Hx Congestive Heart Failure: Yes Hx Diabetes: No Hx Asthma: No Hx COPD: No - Surgical History Hx Coronary Stent: Yes (X6) - Social History Smoking Status: Never Smoker - Medications Home Medications: Home Medications Medication Instructions Recorded Confirmed Last Taken Type Aspirin [Aspirin BABY CHEW TAB] 81 mg PO QDAY tab.chew 12/31/20 05/06/21 05/05/21 Rx Aspirin [Aspirin BABY CHEW TAB] 81 mg PO DAILY #30 tab.chew 05/08/21 Unknown Rx AtorvaSTATin [Lipitor] 40 mg PO QHS #30 tablet 05/08/21 Unknown Rx Clopidogrel [Plavix] 75 mg PO DAILY #30 05/08/21 Unknown Rx Furosemide [Lasix TAB] 40 mg PO BID #60 05/08/21 Unknown Rx ISOSORBIDE MONOnitrate [Imdur ER] 30 mg PO QDAY #30 tablet 05/08/21 Unknown Rx Potassium Chloride 10 meq PO BID #60 05/08/21 Unknown Rx Potassium Chloride [K-Dur] 10 meq PO QDAY #30 tablet 05/08/21 Unknown Rx carvediloL [Coreg] 25 mg PO BID #60 tablet 05/08/21 Unknown Rx hydrALAZINE [Apresoline TAB] 100 mg PO BID #60 tab 05/08/21 Unknown Rx ED Physical Exam - General Limitations: No Limitations - Other Other exam information: General: Moderate distress secondary to pain Head: Atraumatic Eyes: normal appearance ENT: Moist mucous membranes Neck: Normal appearance, no midline tenderness Chest: Clear to auscultation bilaterally, chest wall nontender CV: Regular rate and rhythm Abdomen: Soft, normal bowel sounds, nontender, nondistended, no rebound or guarding Back: Normal inspection Extremity: Normal inspection, full range of motion, no calf tenderness or leg edema Neuro: Alert O x 3, no facial asymmetry, speech clear, no gross motor sensory deficit Psych: Appropriate behavior Skin: No rash ED Course Vital Signs 07/13/21 07/13/21 07/13/21 13:21 13:28 13:31 Temperature 97.9 F Pulse Rate 94 H 95 H Respiratory 16 18 18 Rate Blood Pressure 189/138 Blood Pressure 189/138 [Left] O2 Sat by Pulse 97 96 96 Oximetry 07/13/21 13:45 Temperature Pulse Rate 95 H Respiratory 21 Rate Blood Pressure 189/138 Blood Pressure [Left] O2 Sat by Pulse 96 Oximetry - Reevaluation(s) Reevaluation #1: 07/13/21 14:05 Patient will be treated as a NSTEMI. Not a candidate for Legal Internship at this time. Nitroglycerin drip, heparin drip with bolus, morphine, and Zofran ordered. Requested stat labs and chest x-ray 07/13/21 15:23 pt state chest pressure improved, however still having burning cp - Consultations Consultation #1: 07/13/21 13:46 Case discussed with binder cutter innovations paraprofessional after EKG review. Concerns regarding anterior st depression and changes compared to previous ekg. Initially case discussed with Dr. Subramanian, however Dr To innovations paraprofessional. EKG reviewed, diagnosis of no ST elevation with recommendation for treatment of NSTEMI and blood pressure reduction. 07/13/21 14:25 cardiology at bedside evaluating patient CARINA score - Carina Score Age > 65: (0) No Aspirin use within the Past 7 Days: (1) Yes 3 or more CAD Risk Factors: (1) Yes 2 or more Angina events in past 24 hrs: (1) Yes Known CAD with more than 50% Stenosis: (1) Yes Elevated Cardiac Markers: (1) Yes ST Deviation Greater than 0.5mm: (1) Yes CARINA Score: 6 ED Medical Decision Making - Lab Data Result diagrams: 07/13/21 13:37 07/13/21 13:37 Lab Results 07/13/21 07/13/21 07/13/21 Range/Units 13:37 13:37 13:45 WBC 10.4 (4.5-11.0) K/mm3 RBC 4.39 (3.65-5.03) M/mm3 Hgb 14.0 (11.8-15.2) gm/dl Hct 42.1 (35.5-45.6) % MCV 96 H (84-94) fl MCH 32 (28-32) pg MCHC 33 (32-34) % RDW 16.1 H (13.2-15.2) % Plt Count 246 (140-440) K/mm3 Lymph % (Auto) 9.2 L (13.4-35.0) % Weld % (Auto) 4.7 (0.0-7.3) % Eos % (Auto) 0.4 (0.0-4.3) % Baso % (Auto) 0.2 (0.0-1.8) % Lymph # (Auto) 1.0 L (1.2-5.4) K/mm3 Weld # (Auto) 0.5 (0.0-0.8) K/mm3 Eos # (Auto) 0.0 (0.0-0.4) K/mm3 Baso # (Auto) 0.0 (0.0-0.1) K/mm3 Seg Neutrophils % 85.5 H (40.0-70.0) % Seg Neutrophils # 8.9 H (1.8-7.7) K/mm3 PT (12.2-14.9) Sec. INR (0.87-1.13) APTT (24.2-36.6) Sec. Sodium 142 (137-145) mmol/L Potassium 3.6 (3.6-5.0) mmol/L Chloride 106.7 (98-107) mmol/L Carbon Dioxide 19 L (22-30) mmol/L Anion Gap 20 mmol/L BUN 23 H (9-20) mg/dL Creatinine 1.8 H (0.8-1.3) mg/dL Estimated GFR 48 ml/min BUN/Creatinine Ratio 13 % Glucose 112 H (75-100) mg/dL Calcium 9.0 (8.4-10.2) mg/dL Magnesium (1.7-2.3) mg/dL Total Bilirubin 1.30 H (0.1-1.2) mg/dL AST 32 (5-40) units/L ALT 23 (7-56) units/L Alkaline Phosphatase 79 (35-129) units/L Troponin T 0.036 H (0.00-0.029) ng/mL Total Protein 7.0 (6.3-8.2) g/dL Albumin 3.6 L (3.9-5) g/dL Albumin/Globulin Ratio 1.1 % Triglycerides 82 (2-149) mg/dL Cholesterol 214 H (50-199) mg/dL LDL Cholesterol Direct 147 H (50-130) mg/dL HDL Cholesterol 61 H (40-59) mg/dL Cholesterol/HDL Ratio 3.50 % Urine Color Yellow (Yellow) Urine Turbidity Clear (Clear) Urine pH 6.0 (5.0-7.0) Ur Specific [place] 1.013 (1.003-1.030) Urine Protein 100 mg/dl (Negative) mg/dL Urine Glucose (UA) Neg (Negative) mg/dL Urine Ketones Neg (Negative) mg/dL Urine Blood Sm (Negative) Urine Nitrite Neg (Negative) Urine Bilirubin Neg (Negative) Urine Urobilinogen < 2.0 (<2.0) mg/dL Ur Leukocyte Esterase Sm (Negative) Urine WBC (Auto) 9.0 H (0.0-6.0) /HPF Urine RBC (Auto) 8.0 (0.0-6.0) /HPF U Epithel Cells (Auto) 5.0 (0-13.0) /HPF Urine Mucus Few /HPF Blood Type Antibody Screen 07/13/21 07/13/21 07/13/21 Range/Units 13:55 14:00 14:20 WBC (4.5-11.0) K/mm3 RBC (3.65-5.03) M/mm3 Hgb (11.8-15.2) gm/dl Hct (35.5-45.6) % MCV (84-94) fl MCH (28-32) pg MCHC (32-34) % RDW (13.2-15.2) % Plt Count (140-440) K/mm3 Lymph % (Auto) (13.4-35.0) % Weld % (Auto) (0.0-7.3) % Eos % (Auto) (0.0-4.3) % Baso % (Auto) (0.0-1.8) % Lymph # (Auto) (1.2-5.4) K/mm3 Weld # (Auto) (0.0-0.8) K/mm3 Eos # (Auto) (0.0-0.4) K/mm3 Baso # (Auto) (0.0-0.1) K/mm3 Seg Neutrophils % (40.0-70.0) % Seg Neutrophils # (1.8-7.7) K/mm3 PT 13.7 (12.2-14.9) Sec. INR 0.95 (0.87-1.13) APTT 29.4 (24.2-36.6) Sec. Sodium (137-145) mmol/L Potassium (3.6-5.0) mmol/L Chloride (98-107) mmol/L Carbon Dioxide (22-30) mmol/L Anion Gap mmol/L BUN (9-20) mg/dL Creatinine (0.8-1.3) mg/dL Estimated GFR ml/min BUN/Creatinine Ratio % Glucose (75-100) mg/dL Calcium (8.4-10.2) mg/dL Magnesium 2.30 (1.7-2.3) mg/dL Total Bilirubin (0.1-1.2) mg/dL AST (5-40) units/L ALT (7-56) units/L Alkaline Phosphatase (35-129) units/L Troponin T (0.00-0.029) ng/mL Total Protein (6.3-8.2) g/dL Albumin (3.9-5) g/dL Albumin/Globulin Ratio % Triglycerides (2-149) mg/dL Cholesterol (50-199) mg/dL LDL Cholesterol Direct (50-130) mg/dL HDL Cholesterol (40-59) mg/dL Cholesterol/HDL Ratio % Urine Color (Yellow) Urine Turbidity (Clear) Urine pH (5.0-7.0) Ur Specific [place] (1.003-1.030) Urine Protein (Negative) mg/dL Urine Glucose (UA) (Negative) mg/dL Urine Ketones (Negative) mg/dL Urine Blood (Negative) Urine Nitrite (Negative) Urine Bilirubin (Negative) Urine Urobilinogen (<2.0) mg/dL Ur Leukocyte Esterase (Negative) Urine WBC (Auto) (0.0-6.0) /HPF Urine RBC (Auto) (0.0-6.0) /HPF U Epithel Cells (Auto) (0-13.0) /HPF Urine Mucus /HPF Blood Type A POSITIVE Antibody Screen Negative - EKG Data -: EKG Interpreted by Me EKG shows normal: sinus rhythm, intervals (QTC 533), QRS complexes (PVC), ST-T waves (Significant anterior ST depressions) Rate: normal (93) - EKG Data When compared to previous EKG there are: changes noted - Radiology Data Radiology results: report reviewed CHEST 1 VIEW 07/13/2021 1:20 PM INDICATION / CLINICAL INFORMATION: chest pain. COMPARISON: 05/04/2021 FINDINGS: SUPPORT DEVICES: None. HEART / MEDIASTINUM: Stable cardiomegaly. LUNGS / PLEURA: Mild increasing interstitial markings without localized infiltrate. Mild persistent scarring left mid zone. ADDITIONAL FINDINGS: No significant additional findings. IMPRESSION: Persistent cardiomegaly with suspected mild superimposed edema. - Medical Decision Making 56-year male presents to the hospital with chest pain unrelieved with aspirin nitroglycerin prior to arrival and significantly elevated blood pressure. Patient EKG shows new ST depressions in anterior leads which were discussed with cardiology interventionalists stat. Patient not deemed a candidate for acute cath intervention with recommendation to treat as NSTEMI and reduce hypertension. Patient was treated as a hypertensive emergency with associated CHF and chest pain with nitroglycerin drip, heparin bolus with drip, morphine, and Zofran. Patient endorsed persistent burning mid chest pain radiating to the throat therefore also medicated with Pepcid, Maalox, and viscous lidocaine. Fire Services Plumber evaluated patient emergently in the ED. Mild troponin elevation noted with repeat pending. Hospitalist to admit patient Critical Care Time: Yes Critical care time in (mins) excluding proc time.: 35 Critical care attestation.: If time is entered above; I have spent that time in minutes in the direct care of this critically ill patient, excluding procedure time. Critical Care Time: 35 Minutes of critical care time excluding procedures were used in the care of the patient. I came immediately to the bedside upon EKG review. I discussed treatment plan with the nursing team members. I reviewed electronic record. P atient required multiple interventions and reassessments. Patient required emergent cardiology consultation and intervention with frequent reassessments. ED Disposition Clinical Impression: Hypertensive emergency, Acute CHF, NSTEMI (non-ST elevated myocardial infarction), CRI (chronic renal insufficiency) Disposition: 09 ADMITTED INPATIENT Is pt being admited?: Yes Condition: Stable Instructions: Hypertension (ED) Time of Disposition: 15:39 (Dr Enriquez/hospitalist)
[2021-07-13] MEDS ORDERED: FAMOTIDINE 20 MG/2 ML INJ IV ONE (14:11)
[2021-07-13 14:18] LABS: Basophils % (Auto) 0.2 % (0.0-1.8); Eosinophils % (Auto) 0.4 % (0.0-4.3); Hematocrit 42.1 % (35.5-45.6); Lymphocytes % (Auto) 9.2 % (13.4-35.0); Mean Corpuscular HGB Conc 33 % (32-34); Mean Corpuscular Volume 96 fl (84-94); Monocytes # (Auto) 0.5 K/mm3 (0.0-0.8); Monocytes % (Auto) 4.7 % (0.0-7.3); Platelet Count 246 K/mm3 (140-440); Red Blood Count 4.39 M/mm3 (3.65-5.03); Red Cell Distribution Width 16.1 % (13.2-15.2)
[2021-07-13 14:28] LABS: INR 0.95 (0.87-1.13)
[2021-07-13 14:29] LABS: Partial Thromboplastin Time 29.4 Sec. (24.2-36.6)
--- NOTE | 2021-07-13 14:31 | XRay Report ---
CHEST 1 VIEW 07/13/2021 1:20 PM INDICATION / CLINICAL INFORMATION: chest pain. COMPARISON: 05/04/2021 FINDINGS: SUPPORT DEVICES: None. HEART / MEDIASTINUM: Stable cardiomegaly. LUNGS / PLEURA: Mild increasing interstitial markings without localized infiltrate. Mild persistent s carring left mid zone. ADDITIONAL FINDINGS: No significant additional findings. IMPRESSION: Persistent cardiomegaly with suspected mild superimposed edema. Signer Name: Zane Basilio MD Signed: 07/13/2021 2:27 PM Workstation Name: [email or web address]
[2021-07-13 14:35] LABS: Albumin 3.6 g/dL (3.9-5)
[2021-07-13] MEDS: HEPARIN/ 0.45% NACL DRIP 25,000 UNIT/500 ML BAG IV SCH (14:36)
[2021-07-13 14:46] LABS: Chol/HDL Ratio 3.5 %
[2021-07-13 14:49] LABS: Bilirubin,Urine NEG (Negative); Blood,Urine SM (Negative); Color,Urine Yellow (Yellow); Mucus,Urine FEW /HPF; Urobilinogen,Urine < 2.0 mg/dL (<2.0)
[2021-07-13] MEDS ORDERED: ALUM-MAG HYDROXIDE-SIMETHICONE 200-200-20MG/5ML ORAL LIQD 30 ML PO ONE (15:31)
[2021-07-13] MEDS ORDERED: LIDOCAINE VISCOUS 2% 15 ML ORAL LIQD PO ONE (15:31)
--- NOTE | 2021-07-13 16:08 | History and Physical Report ---
History of Present Illness Chief complaint: My chest hurts History of present illness: 56 YO Male with CHF (EF 10%) patient is currently not wearing his LifeVest, CAD S/P Stent Placement on DAPT, HTN, [place], Obesity presents to ED for evaluation. Patient reports "my chest hurts". Patient states that he has experienced a sudden onset of chest pain that began approximately 2 hours ago. Patient states the pain is 10/10, constant, sharp in nature, associated with shortness of breath, associated with diaphoresis. Patient also acknowledges lower extremity edema with worsening symptoms over the past 2 weeks, orthopnea, paroxysmal nocturnal dyspnea, dyspnea on exertion, dyspnea at rest, as well as decreased exercise tolerance. Patient states that pain is worsened with exertion, relieved with rest, as well as relieved with nitro. EMS was notified and upon arrival the patient was found to be in distress and subsequently transported to [facility] for further care and evaluation of the aforementioned symptoms. The patient was seen and evaluated in the emergency department. All lab and imaging studies reviewed. Patient found to have clinical symptoms consistent with CHF decompensation, angina at rest, GREGG, malignant hypertension, as well as lab findings consistent with NSTEMI. Patient admitted to [facility] and initiated on nitro drip as well as CHF protocol. Cardiology team consulted in ED. Patient denies fever, chills, productive cough, skin rash, recent ill contacts, known exposure to COVID-19. Prior admission on 04/04/2021 reviewed. All medication listed at time of admission has been reconciled. Advanced care planning conducted in ED. Past History Past Medical History: acute [place], CAD, diabetes, heart failure, hypertension Past Surgical History: Other (Cardiac stent placement) Social history: single. denies: smoking, alcohol abuse Family history: diabetes, hypertension Medications and Allergies Allergies Allergy/AdvReac Type Severity Reaction Status Date / Time Sulfa (Sulfonamide Allergy Anaphylaxis Verified 07/13/21 13:28 Antibiotics) Home Medications Medication Instructions Recorded Confirmed Last Taken Type Aspirin [Aspirin BABY CHEW TAB] 81 mg PO QDAY tab.chew 12/31/20 05/06/21 05/05/21 Rx Aspirin [Aspirin BABY CHEW TAB] 81 mg PO DAILY #30 tab.chew 05/08/21 Unknown Rx AtorvaSTATin [Lipitor] 40 mg PO QHS #30 tablet 05/08/21 Unknown Rx Clopidogrel [Plavix] 75 mg PO DAILY #30 05/08/21 Unknown Rx Furosemide [Lasix TAB] 40 mg PO BID #60 05/08/21 Unknown Rx ISOSORBIDE MONOnitrate [Imdur ER] 30 mg PO QDAY #30 tablet 05/08/21 Unknown Rx Potassium Chloride 10 meq PO BID #60 05/08/21 Unknown Rx Potassium Chloride [K-Dur] 10 meq PO QDAY #30 tablet 05/08/21 Unknown Rx carvediloL [Coreg] 25 mg PO BID #60 tablet 05/08/21 Unknown Rx hydrALAZINE [Apresoline TAB] 100 mg PO BID #60 tab 05/08/21 Unknown Rx Active Meds: Active Medications Aspirin (Aspirin 81 Mg Tab Chew) 81 mg PO DAILY TOMER Atorvastatin Calcium (Atorvastatin 40 Mg Tab) 40 mg PO QHS TOMER Carvedilol (Carvedilol 25 Mg Tab) 25 mg PO BID TOMER Clopidogrel Bisulfate (Clopidogrel 75 Mg Tab) 75 mg PO DAILY [facility] Heparin Sodium (Porcine) (Heparin 10,000 Units/10 Ml Vial) 3,700 unit 40 unit/kg (3700 unit) IV Q6H PRN PRN Reason: Anti-Xa Assay less than 0.1 un Last Admin: 07/13/21 14:03 Dose: 3,700 unit Heparin Sodium (Porcine) (Heparin 10,000 Units/10 Ml Vial) 3,700 unit 40 unit/kg (3700 unit) IV Q6H PRN PRN Reason: Anti-Xa Assay less than 0.1 un Hydralazine HCl (Hydralazine 100 Mg Tab) 100 mg PO BID [facility] Heparin Sodium/Sodium Chloride (Heparin/ 0.45% Nacl-25,000 Unit/500 Ml) 25,000 unit in 500 mls @ 20 mls/hr IV TITRATE TOMER; Protocol Last Admin: 07/13/21 14:36 Dose: 1,000 units/hr, 20 mls/hr Nitroglycerin/Dextrose (Tridil Drip 50mg/250ml) 50 mg in 250 mls @ 3 mls/hr IV TITR ONE; Protocol Stop: 07/17/21 01:14 Last Admin: 07/13/21 14:09 Dose: 10 mcg/min, 3 mls/hr Isosorbide Mononitrate (Isosorbide Mononitrate Er 30 Mg Tab) 30 mg PO QDAY [facility] Potassium Chloride (Potassium Chloride Er 10 Meq Tab) 10 meq PO QDAY [facility] Review of Systems Constitutional: no weight loss, no weight gain, no fever, no chills, no sweats Ears, nose, mouth and throat: no ear pain, no ear discharge, no tinnitis, no decreased hearing, no nose pain, no nasal congestion Cardiovascular: chest pain, shortness of breath, decreased exercise tolerance, no orthopnea, no palpitations, no rapid/irregular heart beat Respiratory: no cough, no cough with sputum, no excessive sputum Gastrointestinal: no abdominal pain, no nausea, no vomiting, no diarrhea, no constipation Genitourinary Male: no hematuria, no flank pain, no discharge, no urinary frequency, no urinary hesitancy Rectal: no pain, no incontinence, no bleeding Musculoskeletal: no neck pain, no arm numbness/tingling, no low back pain, no shooting leg pain Integumentary: no rash, no pruritis, no redness, no sores, no wounds, no jaundice Neurological: no transient paralysis, no paralysis, no weakness, no parathesias, no numbness, no tingling, no seizures, no tremors Psychiatric: no anxiety, no memory loss, no sleep disturbances, no change in appetite Endocrine: no cold intolerance, no heat intolerance, no polyphagia, no excessive sweating, no flushing Hematologic/Lymphatic: no easy bruising, no easy bleeding, no lymphedema Allergic/Immunologic: no urticaria, no wheezing, no persistent infections Exam - Constitutional Vitals: Temp Pulse Resp BP Pulse Ox 97.9 F 95 H 21 189/138 96 07/13/21 13:28 07/13/21 13:45 07/13/21 13:45 07/13/21 13:45 07/13/21 13:45 General appearance: Present: mild distress, obese - EENT Eyes: Present: PERRL ENT: hearing intact, clear oral mucosa - Neck Neck: Present: supple, normal ROM - Respiratory Respiratory effort: normal Respiratory: bilateral: CTA - Cardiovascular Heart Sounds: Present: S1 & S2. Absent: rub, click - Extremities Extremities: pulses symmetrical, No edema Peripheral Pulses: within normal limits - Abdominal General gastrointestinal: Present: soft, non-tender, non-distended, normal bowel sounds Male genitourinary: Present: normal - Integumentary Integumentary: Present: clear, warm, dry - Musculoskeletal Musculoskeletal: gait normal, strength equal bilaterally - Psychiatric Psychiatric: appropriate mood/affect, intact judgment & insight - Neurologic Neurologic: CNII-XII intact, moves all extremities HEART Score - HEART Score EKG: Significant ST-depression Age: 45-65 Risk factors: > 3 risk factors or hx of atherosclerotic disease Troponin: Troponin T 0.036 ng/mL (0.00-0.029) H 07/13/21 13:37 Troponin: 1-3x normal limit Results - Labs CBC & Chem 7: 07/13/21 13:37 07/13/21 13:37 Labs: Abnormal lab results 07/13/21 07/13/21 07/13/21 Range/Units 13:37 13:37 13:45 MCV 96 H (84-94) fl RDW 16.1 H (13.2-15.2) % Lymph % (Auto) 9.2 L (13.4-35.0) % Lymph # (Auto) 1.0 L (1.2-5.4) K/mm3 Seg Neutrophils % 85.5 H (40.0-70.0) % Seg Neutrophils # 8.9 H (1.8-7.7) K/mm3 Carbon Dioxide 19 L (22-30) mmol/L BUN 23 H (9-20) mg/dL Creatinine 1.8 H (0.8-1.3) mg/dL Glucose 112 H (75-100) mg/dL Total Bilirubin 1.30 H (0.1-1.2) mg/dL Troponin T 0.036 H (0.00-0.029) ng/mL Albumin 3.6 L (3.9-5) g/dL Cholesterol 214 H (50-199) mg/dL LDL Cholesterol Direct 147 H (50-130) mg/dL HDL Cholesterol 61 H (40-59) mg/dL Urine WBC (Auto) 9.0 H (0.0-6.0) /HPF Assessment and Plan - Patient Problems (1) NSTEMI (non-ST elevated myocardial infarction) Current Visit: Yes Status: Acute Plan to address problem: ACS protocol: Serial cardiac enzymes, EKG, telemetry, cardiology team consulted in ED. Patient initiated on heparin drip. Patient pending cardiac cath in a.m. (2) Acute CHF Current Visit: No Status: Acute Qualifiers: Heart failure type: systolic Qualified Code(s): I50.21 - Acute systolic (congestive) heart failure Plan to address problem: CHF protocol: Strict I/O, monitor urine output every shift, daily weight, afterload reduction, blood pressure control, cardiology team consulted in ED. Further care and management as per cardiology team. (3) Malignant hypertension Current Visit: Yes Status: Acute Plan to address problem: Monitor blood pressure every shift, continue medical management (4) GREGG (acute kidney injury) Current Visit: Yes Status: Acute Plan to address problem: Monitor urine output every shift, BMP, repeat BMP in a.m. to monitor serum creatinine as well as GFR. (5) CAD (coronary artery disease) Current Visit: Yes Status: Acute Plan to address problem: Risk factor reduction therapy, continue dual antiplatelet therapy, supportive care, low-cholesterol diet. (6) DVT prophylaxis Current Visit: Yes Status: Acute Plan to address problem: SCD to bilateral lower extremities while in bed, continue therapeutic anticoagulation (7) Advance care planning Current Visit: Yes Status: Acute Plan to address problem: Disease education conducted, care plan discussed, diagnoses discussed, prognosis discussed, patient is full code. Patient counseled regarding compliance with LifeVest. Patient counseled regarding compliance with outpatient medication and low-sodium diet. Patient knowledges understanding instructions. +30 minutes
[2021-07-13] MEDS ORDERED: HYDROmorphone 1 MG/1 ML INJ IV PRN (16:13)
[2021-07-13] MEDS ORDERED: ALBUTEROL 2.5 MG/3 ML NEBU IH PRN (16:13)
[2021-07-13] MEDS ORDERED: ONDANSETRON 4 MG/2 ML INJ IV PRN (16:13)
[2021-07-13] MEDS ORDERED: MORPHINE 2 MG/1 ML INJ IV PRN (16:13)
[2021-07-13] MEDS ORDERED: ACETAMINOPHEN 325 MG TAB PO PRN (16:13)
--- NOTE | 2021-07-13 17:33 | Consultation ---
History of Present Illness Consult date: 07/13/21 Requesting physician: ROMAN CHAUDHRY Consult reason: chest pain History of present illness: 56-year-old male with a past medical history of ischemic cardiomyopathy EF 10 to 15%, coronary artery disease s/p PCI, pretension, history of TN, CKD, pulmonary hypertension reported to the ED today for complaint of chest pain which started 2 hours prior to arrival in the ED. Patient reports he was in his yard feeding his horses when suddenly he developed a sudden chest pain that he described as tightness and rates 10 out of 10. He associates this pain also with nausea vomiting, diaphoresis, shortness of and a GERD-like feeling. Patient denies any exacerbating factors. Patient reports relief with nitroglycerin drip and morphine. Of note in the ED patient was found to be in hypertensive urgency with blood pressure 187/138. Patient denies orthopnea, palpitations, lightheadedness or dizziness. Patient follows with Dr. Huston in our office. Cardiology is consulted for chest pain Past History Past Medical History: CAD, hypertension, hyperlipidemia Medications and Allergies Allergies Allergy/AdvReac Type Severity Reaction Status Date / Time Sulfa (Sulfonamide Allergy Anaphylaxis Verified 07/13/21 13:28 Antibiotics) Home Medications Medication Instructions Recorded Confirmed Last Taken Type Aspirin [Aspirin BABY CHEW TAB] 81 mg PO QDAY tab.chew 12/31/20 05/06/21 05/05/21 Rx Aspirin [Aspirin BABY CHEW TAB] 81 mg PO DAILY #30 tab.chew 05/08/21 Unknown Rx AtorvaSTATin [Lipitor] 40 mg PO QHS #30 tablet 05/08/21 Unknown Rx Clopidogrel [Plavix] 75 mg PO DAILY #30 05/08/21 Unknown Rx Furosemide [Lasix TAB] 40 mg PO BID #60 05/08/21 Unknown Rx ISOSORBIDE MONOnitrate [Imdur ER] 30 mg PO QDAY #30 tablet 05/08/21 Unknown Rx Potassium Chloride 10 meq PO BID #60 05/08/21 Unknown Rx Potassium Chloride [K-Dur] 10 meq PO QDAY #30 tablet 05/08/21 Unknown Rx carvediloL [Coreg] 25 mg PO BID #60 tablet 05/08/21 Unknown Rx hydrALAZINE [Apresoline TAB] 100 mg PO BID #60 tab 05/08/21 Unknown Rx Active Meds: Active Medications Acetaminophen (Acetaminophen 325 Mg Tab) 650 mg PO Q4H PRN PRN Reason: Pain MILD(1-3)/Fever >100.5/VILLALOBOS Albuterol (Albuterol 2.5 Mg/3 Ml Nebu) 2.5 mg IH Q4HRT PRN PRN Reason: Shortness Of Breath Aspirin (Aspirin 81 Mg Tab Chew) 81 mg PO DAILY [facility] Atorvastatin Calcium (Atorvastatin 40 Mg Tab) 40 mg PO QHS [facility] Carvedilol (Carvedilol 25 Mg Tab) 25 mg PO BID [facility] Clopidogrel Bisulfate (Clopidogrel 75 Mg Tab) 75 mg PO DAILY [facility] Heparin Sodium (Porcine) (Heparin 10,000 Units/10 Ml Vial) 3,700 unit 40 unit/kg (3700 unit) IV Q6H PRN PRN Reason: Anti-Xa Assay less than 0.1 un Last Admin: 07/13/21 14:03 Dose: 3,700 unit Hydralazine HCl (Hydralazine 100 Mg Tab) 100 mg PO BID [facility] Hydromorphone HCl (Hydromorphone 1 Mg/1 Ml Inj) 0.5 mg IV Q12H PRN PRN Reason: Pain , Severe (7-10) Heparin Sodium/Sodium Chloride (Heparin/ 0.45% Nacl-25,000 Unit/500 Ml) 25,000 unit in 500 mls @ 20 mls/hr IV TITRATE [facility]; Protocol Last Admin: 07/13/21 14:36 Dose: 1,000 units/hr, 20 mls/hr Nitroglycerin/Dextrose (Tridil Drip 50mg/250ml) 50 mg in 250 mls @ 3 mls/hr IV TITR ONE; Protocol Stop: 07/17/21 01:14 Last Admin: 07/13/21 14:09 Dose: 10 mcg/min, 3 mls/hr Sodium Chloride (Nacl 0.9% 500 Ml) 500 mls @ 50 mls/hr IV DIRECT TOMER Stop: 07/14/21 03:59 Isosorbide Mononitrate (Isosorbide Mononitrate Er 30 Mg Tab) 30 mg PO QDAY [facility] Morphine Sulfate (Morphine 2 Mg/1 Ml Inj) 2 mg IV Q6H PRN PRN Reason: Pain, Moderate (4-6) Ondansetron HCl (Ondansetron 4 Mg/2 Ml Inj) 4 mg IV Q8H PRN PRN Reason: Nausea And Vomiting Potassium Chloride (Potassium Chloride Er 10 Meq Tab) 10 meq PO QDAY TOMER Sodium Chloride (Sodium Chloride 0.9% 10 Ml Flush Syringe) 10 ml IV BID TOMER Sodium Chloride (Sodium Chloride 0.9% 10 Ml Flush Syringe) 10 ml IV PRN PRN PRN Reason: LINE FLUSH Review of Systems Constitutional: no weight loss, no weight gain, no fever, no chills Ears, nose, mouth and throat: no nasal discharge, no sinus pressure, no sinus pain Cardiovascular: chest pain, shortness of breath Respiratory: shortness of breath Gastrointestinal: nausea, vomiting, no abdominal pain Integumentary: no rash, no pruritis, no redness Neurological: headaches, no head injury, no transient paralysis Psychiatric: no anxiety, no memory loss Endocrine: no cold intolerance, no heat intolerance Hematologic/Lymphatic: no easy bruising, no easy bleeding Physical Examination Vital Signs Resp Pulse Ox 16 97 07/13/21 13:21 07/13/21 13:21 General appearance: no acute distress HEENT: Positive: PERRL Neck: Positive: trachea midline Cardiac: Positive: Reg Rate and Rhythm Lungs: Positive: Normal Breath Sounds Neuro: Positive: Grossly Intact Abdomen: Positive: Soft, Active Bowel Sounds Skin: Negative: Rash, Suspicious Lesions, Ulceration Extremities: Present: upper extr. pulses. Absent: edema Results 07/13/21 13:37 07/13/21 13:37 Cardiac Enzymes 07/13/21 Range/Units 13:37 AST 32 (5-40) units/L Coagulation 07/13/21 Range/Units 13:55 PT 13.7 (12.2-14.9) Sec. INR 0.95 (0.87-1.13) APTT 29.4 (24.2-36.6) Sec. Lipids 07/13/21 Range/Units 13:37 Triglycerides 82 (2-149) mg/dL Cholesterol 214 H (50-199) mg/dL HDL Cholesterol 61 H (40-59) mg/dL Cholesterol/HDL Ratio 3.50 % CBC 07/13/21 Range/Units 13:37 WBC 10.4 (4.5-11.0) K/mm3 RBC 4.39 (3.65-5.03) M/mm3 Hgb 14.0 (11.8-15.2) gm/dl Hct 42.1 (35.5-45.6) % Plt Count 246 (140-440) K/mm3 Lymph # (Auto) 1.0 L (1.2-5.4) K/mm3 [place] # (Auto) 0.5 (0.0-0.8) K/mm3 Eos # (Auto) 0.0 (0.0-0.4) K/mm3 Baso # (Auto) 0.0 (0.0-0.1) K/mm3 Comprehensive Metabolic Panel 07/13/21 Range/Units 13:37 Sodium 142 (137-145) mmol/L Potassium 3.6 (3.6-5.0) mmol/L Chloride 106.7 (98-107) mmol/L Carbon Dioxide 19 L (22-30) mmol/L BUN 23 H (9-20) mg/dL Creatinine 1.8 H (0.8-1.3) mg/dL Glucose 112 H (75-100) mg/dL Calcium 9.0 (8.4-10.2) mg/dL AST 32 (5-40) units/L ALT 23 (7-56) units/L Alkaline Phosphatase 79 (35-129) units/L Total Protein 7.0 (6.3-8.2) g/dL Albumin 3.6 L (3.9-5) g/dL - Imaging and Cardiology Echo: report reviewed EKG interpretations - Telemetry EKG Rhythm: Sinus Rhythm - EKG Sinus rhythms and dysrhythmias: sinus rhythm Assessment and Plan 56-year-old male with a past medical history of ischemic cardiomyopathy EF 10 to 15%, coronary artery disease s/p PCI, pretension, history of TN, CKD, pulmonary hypertension reported to the ED today for complaint of chest pain which started 2 hours prior to arrival in the ED Chest pain Hypertensive urgency Ischemic cardiomyopathy Coronary artery disease s/p PCI CKD Echocardiogram 12/28/2020- EF 10 to 15% Left ventricle is moderately dilated. LVEF is severely decreased. mild concentric lvh severe diastolic dysfunction is present restrictive filling There is severe global hypokinesis of the left nicole tricle right ventricle is severely dilated. Right ventricle is hypokinetic left atrium is moderately dilated. Right atrium is severely dilated. moderate tricuspid regurgitation. RVSP 68mmhg PCI - Date: 01/25/2020-Left main patent LAD proximal mid stent 10-20% in-stent restenosis diagonal 1 stent 10% in-stent restenosis distal LAD 20% ramus 20% diffuse disease. Circumflex 20% OM1 patent OM 2 100% chronic total occlusion, RCA mid stent patent distal PCI with [place] [employer] 3.5 x 38 mm distal RCA to PDA 3.0 x 8 m drug-eluting [place] Synergy dilated distal RCA with 3.75 balloon. Severe LV dysfunction Nuclear Stress Test SPECT MULTI Date: 10/24/2020-Large areas of infarction in the anterior lateral region severe LV dysfunction no significant ischemia Plan: EKG shows sinus [address] depression. Initial troponin minimally elevated 0.036. Repeat cardiac enzymes pending BNP pending. However patient appears euvolemic on exam with no bilateral lower extremity edema and lungs clear to auscultation. Patient denies orthopnea or PND Initiate heparin drip Agree with atorvastatin, Coreg 25 mg p.o. twice daily, hydralazine 100 mg p.o. twice daily, Imdur 30 mg p.o. daily Continue DAPT therapy with aspirin and Plavix Recommend titrating nitro drip as needed for systolic blood pressure less than 160 If unable to control systolic blood pressure with nitro drip may wish to consider nicardipine drip Patient reports his LifeVest however patient not currently wearing it. Reports that his batteries Patient tentatively for cardiac cath in a.m. if BP control. N.p.o. after midnight Discussed plan of care with patient who verbalized acknowledgment and agreement Patient seen in conjunction with Dr. To who agrees with this plan of care - Patient Problems (1) GREGG (acute kidney injury) Current Visit: No Status: Acute (2) Acute on chronic HFrEF (heart failure with reduced ejection fraction) Current Visit: No Status: Acute (3) CRI (chronic renal insufficiency) Current Visit: No Status: Acute (4) Chest pain Current Visit: No Status: Acute (5) Hypertensive emergency Current Visit: No Status: Acute (6) HTN (hypertension) Current Visit: No Status: Chronic Qualifiers: Hypertension type: primary hypertension Qualified Code(s): I10 - Essential (primary) hypertension (7) History of myocardial infarction Current Visit: No Status: Chronic (8) Hyperlipemia, mixed Current Visit: No Status: Chronic (9) Moderate pulmonary hypertension Current Visit: No Status: Chronic (10) Stented coronary artery Current Visit: No Status: Chronic
[2021-07-13] MEDS ORDERED: SODIUM CHLORIDE 0.9% 500 ML 500 ML IV SCH (18:00)
[2021-07-13] MEDS ORDERED: carvediloL 25 MG TAB PO SCH (22:00)
[2021-07-13] MEDS ORDERED: hydrALAZINE 100 MG TAB PO SCH (22:00)
[2021-07-13] MEDS: carvediloL 25 MG TAB PO SCH (22:17)
[2021-07-13] MEDS: hydrALAZINE 100 MG TAB PO SCH (22:17)
[2021-07-14] MEDS ORDERED: diphenhydrAMINE 50 MG/ML VIAL IV ONE (01:30)
[2021-07-14 05:07] LABS: Basophils # (Auto) 0.1 K/mm3 (0.0-0.1); Basophils % (Auto) 0.7 % (0.0-1.8); Eosinophils % (Auto) 0.3 % (0.0-4.3); Hematocrit 42.9 % (35.5-45.6); Hemoglobin 13.8 gm/dl (11.8-15.2); Lymphocytes # (Auto) 1.5 K/mm3 (1.2-5.4); Lymphocytes % (Auto) 19.5 % (13.4-35.0); Mean Corpuscular HGB Conc 32 % (32-34); Mean Corpuscular Volume 95 fl (84-94); Monocytes # (Auto) 0.6 K/mm3 (0.0-0.8); Monocytes % (Auto) 7.7 % (0.0-7.3); Platelet Count 211 K/mm3 (140-440); Red Blood Count 4.51 M/mm3 (3.65-5.03)
[2021-07-14 05:34] LABS: Calcium 8.4 mg/dL (8.4-10.2)
[2021-07-14] MEDS: hydrALAZINE 100 MG TAB PO SCH ×3 (06:28→22:03)
[2021-07-14] MEDS: carvediloL 25 MG TAB PO SCH ×3 (06:28→22:03)
[2021-07-14] MEDS: CLOPIDOGREL 75 MG TAB PO SCH (06:29)
[2021-07-14] MEDS: ASPIRIN 81 MG TAB CHEW PO SCH (06:29)
[2021-07-14] MEDS ORDERED: SODIUM CHLORIDE 0.9% 1000 ML 1,000 ML IV SCH (06:30)
[2021-07-14] MEDS ORDERED: HEPARIN/NS 5000 UNIT/500ML 1,000 ML IR ONE (07:52)
[2021-07-14] MEDS ORDERED: LIDOCAINE (2%) 20 MG/1 ML VIAL 20 ML MDV INFILTRATI ONE ×2 (07:52→07:57)
[2021-07-14] MEDS ORDERED: HEPARIN 10,000 UNITS/10 ML VIAL ONE (07:52)
[2021-07-14] MEDS ORDERED: VERAPAMIL 5 MG/2 ML INJ ONE (07:52)
[2021-07-14] MEDS ORDERED: NITROGLYCERIN SYRINGE 3 ML ONE (07:53)
[2021-07-14] MEDS ORDERED: MIDAZOLAM 2 MG/2 ML INJ ONE (08:45)
[2021-07-14] MEDS ORDERED: fentaNYL 100 MCG/2 ML INJ ONE (08:46)
--- NOTE | 2021-07-14 09:31 | Progress Note ---
Assessment and Plan Assessment and plan: 56 YO Male with CHF (EF 10%) patient is currently not wearing his LifeVest, CAD S/P Stent Placement on DAPT, HTN, ID, Obesity presents to ED for evaluation. Patient reports "my chest hurts". Patient states that he has experienced a sudden onset of chest pain that began approximately 2 hours ago. Patient states the pain is 10/10, constant, sharp in nature, associated with shortness of breath, associated with diaphoresis. Patient also acknowledges lower extremity edema with worsening symptoms over the past 2 weeks, orthopnea, paroxysmal nocturnal dyspnea, dyspnea on exertion, dyspnea at rest, as well as decreased exercise tolerance. Patient states that pain is worsened with exertion, relieved with rest, as well as relieved with nitro. EMS was notified and upon arrival the patient was found to be in distress and subsequently transported to [facility] for further care and evaluation of the aforementioned symptoms. The patient was seen and evaluated in the emergency department. All lab and imaging studies reviewed. Patient found to have clinical symptoms consistent with CHF decompensation, angina at rest, GREGG, malignant hypertension, as well as lab findings consistent with NSTEMI. Patient admitted to IMCU and initiated on nitro drip as well as CHF protocol. Cardiology team consulted in ED. Patient denies fever, chills, productive cough, skin rash, recent ill contacts, known exposure to COVID-19. Prior admission on 04/04/2021 reviewed. All medication listed at time of admission has been reconciled. Advanced care planning conducted in ED. Echocardiogram 12/28/2020- EF 10 to 15% Left ventricle is moderately dilated. LVEF is severely decreased. mild concentric lvh severe diastolic dysfunction is present restrictive filling There is severe global hypokinesis of the left ventricle right ventricle is severely dilated. Right ventricle is hypokinetic l eft atrium is moderately dilated. Right atrium is severely dilated. moderate tricuspid regurgitation. RVSP 68mmhg PCI - Date: 01/25/2020-Left main patent LAD proximal mid stent 10-20% in-stent restenosis diagonal 1 stent 10% in-stent restenosis distal LAD 20% ramus 20% diffuse disease. Circumflex 20% OM1 patent OM 2 100% chronic total occlusion, RCA mid stent patent distal PCI with [place] [employer] 3.5 x 38 mm distal RCA to PDA 3.0 x 8 m drug-eluting [employer] Synergy dilated distal RCA with 3.75 balloon. Severe LV dysfunction Nuclear Stress Test SPECT MULTI Date: 10/24/2020-Large areas of infarction in the anterior lateral region severe LV dysfunction no significant ischemia 3/4: Patient seen and examined discussed with cardiology patient continues on heparin drip and atorvastatin and Coreg. Based on findings on the Lab patient has been recommended for transfer to [facility] for specialized and higher level of care. EF is noted to be down to 5 to 10%. (1) NSTEMI (non-ST elevated myocardial infarction) Current Visit: Yes Status: Acute Plan to address problem: ACS protocol: Serial cardiac enzymes, EKG, telemetry, cardiology team consulted in ED. Patient initiated on heparin drip. Patient pending cardiac cath in a.m. (2) Acute CHF Current Visit: No Status: Acute Qualifiers: Heart failure type: systolic Qualified Code(s): I50.21 - Acute systolic (congestive) heart failure Plan to address problem: CHF protocol: Strict I/O, monitor urine output every shift, daily weight, afterload reduction, blood pressure control, cardiology team consulted in ED. Further care and management as per cardiology team. (3) Malignant hypertension Current Visit: Yes Status: Acute Plan to address problem: Monitor blood pressure every shift, continue medical management (4) GREGG (acute kidney injury) Current Visit: Yes Status: Acute Plan to address problem: Monitor urine output every shift, BMP, repeat BMP in a.m. to monitor serum creatinine as well as GFR. (5) CAD (coronary artery disease) Current Visit: Yes Status: Acute Plan to address problem: Risk factor reduction therapy, continue dual antiplatelet therapy, supportive care, low-cholesterol diet. (6) ischemic cardiomyopathy (7) DVT prophylaxis Current Visit: Yes Status: Acute Plan to address problem: SCD to bilateral lower extremities while in bed, continue therapeutic anticoagulation (8) Advance care planning Current Visit: Yes Status: Acute Plan to address problem: Disease education conducted, care plan discussed, diagnoses discussed, prognosis discussed, patient is full code. Patient counseled regarding compliance with LifeVest. Patient counseled regarding compliance with outpatient medication and low-sodium diet. Patient knowledges understanding instructions. +30 minutes History Interval history: Patient seen and examined underwent cardiac catheterization found to have significantly decreased EF and two-vessel disease now being planned for transfer to [facility]. Hospitalist Physical - Physical exam Narrative exam: VITAL SIGNS: Reviewed. GENERAL: The patient appears normally developed, Vital signs as documented. HEAD: No signs of head trauma. EYES: Pupils are equal. Extraocular motions intact. EARS: Hearing grossly intact. MOUTH: Oropharynx is normal. NECK: No adenopathy, no JVD. CHEST: Chest with clear breath sounds bilaterally. No wheezes, rales, or rhonchi. CARDIAC: Regular rate and rhythm. S1 and S2, without murmurs, gallops, or rubs. VASCULAR: No Edema. Peripheral pulses normal and equal in all extremities. ABDOMEN: Soft, non tender and non distended. No rebound or guarding, and no masses palpated. Bowel Sounds normal. MUSCULOSKELETAL: Good range of motion of all major joints. Extremities without clubbing, cyanosis or edema. NEUROLOGIC EXAM: Alert and oriented x 3 No focal sensory or strength deficits. Speech normal. Follows commands. PSYCHIATRIC: Mood normal. SKIN: detail exam as documented in skin assessment - Constitutional Vitals: Temp Pulse Resp BP Pulse Ox 97.5 F L 78 17 117/66 96 07/14/21 04:00 07/14/21 06:30 07/14/21 06:30 07/14/21 06:30 07/14/21 06:30 General appearance: Present: mild distress, obese HEART Score - HEART Score EKG: Significant ST-depression Age: 45-65 Risk factors: > 3 risk factors or hx of atherosclerotic disease Troponin: Troponin T 0.848 ng/mL (0.00-0.029) H* D 07/13/21 23:03 Troponin: 1-3x normal limit Results - Labs CBC & Chem 7: 07/14/21 04:05 07/14/21 04:05 Labs: Laboratory Last Values WBC 7.5 K/mm3 (4.5-11.0) 07/14/21 04:05 RBC 4.51 M/mm3 (3.65-5.03) 07/14/21 04:05 Hgb 13.8 gm/dl (11.8-15.2) 07/14/21 04:05 Hct 42.9 % (35.5-45.6) 07/14/21 04:05 MCV 95 fl (84-94) H 07/14/21 04:05 MCH 31 pg (28-32) 07/14/21 04:05 MCHC 32 % (32-34) 07/14/21 04:05 RDW 16.0 % (13.2-15.2) H 07/14/21 04:05 Plt Count 211 K/mm3 (140-440) 07/14/21 04:05 Lymph % (Auto) 19.5 % (13.4-35.0) 07/14/21 04:05 [place] % (Auto) 7.7 % (0.0-7.3) H 07/14/21 04:05 Eos % (Auto) 0.3 % (0.0-4.3) 07/14/21 04:05 Baso % (Auto) 0.7 % (0.0-1.8) 07/14/21 04:05 Lymph # (Auto) 1.5 K/mm3 (1.2-5.4) 07/14/21 04:05 [place] # (Auto) 0.6 K/mm3 (0.0-0.8) 07/14/21 04:05 Eos # (Auto) 0.0 K/mm3 (0.0-0.4) 07/14/21 04:05 Baso # (Auto) 0.1 K/mm3 (0.0-0.1) 07/14/21 04:05 Seg Neutrophils % 71.8 % (40.0-70.0) H 07/14/21 04:05 Seg Neutrophils # 5.4 K/mm3 (1.8-7.7) 07/14/21 04:05 PT 14.3 Sec. (12.2-14.9) 07/14/21 04:05 INR 1.00 (0.87-1.13) 07/14/21 04:05 APTT 29.4 Sec. (24.2-36.6) 07/13/21 13:55 Heparin Anti-Xa Level 0.10 U.I./ml (0.3-0.7) L 07/14/21 04:05 Sodium 135 mmol/L (137-145) L 07/14/21 04:05 Potassium 4.1 mmol/L (3.6-5.0) 07/14/21 04:05 Chloride 103.4 mmol/L (98-107) 07/14/21 04:05 Carbon Dioxide 18 mmol/L (22-30) L 07/14/21 04:05 Anion Gap 18 mmol/L 07/14/21 04:05 BUN 27 mg/dL (9-20) H 07/14/21 04:05 Creatinine 1.9 mg/dL (0.8-1.3) H 07/14/21 04:05 Estimated GFR 45 ml/min 07/14/21 04:05 BUN/Creatinine Ratio 14 % 07/14/21 04:05 Glucose 108 mg/dL (75-100) H 07/14/21 04:05 Calcium 8.4 mg/dL (8.4-10.2) 07/14/21 04:05 Magnesium 2.30 mg/dL (1.7-2.3) 07/13/21 14:20 Total Bilirubin 1.30 mg/dL (0.1-1.2) H 07/13/21 13:37 AST 32 units/L (5-40) 07/13/21 13:37 ALT 23 units/L (7-56) 07/13/21 13:37 Alkaline Phosphatase 79 units/L (35-129) 07/13/21 13:37 Troponin T 0.848 ng/mL (0.00-0.029) H* D 07/13/21 23:03 NT-Pro-B Natriuret Pep 9836 pg/mL (0-900) H 07/13/21 Unknown Total Protein 7.0 g/dL (6.3-8.2) 07/13/21 13:37 Albumin 3.6 g/dL (3.9-5) L 07/13/21 13:37 Albumin/Globulin Ratio 1.1 % 07/13/21 13:37 Triglycerides 82 mg/dL (2-149) 07/13/21 13:37 Cholesterol 214 mg/dL (50-199) H 07/13/21 13:37 LDL Cholesterol Direct 147 mg/dL (50-130) H 07/13/21 13:37 HDL Cholesterol 61 mg/dL (40-59) H 07/13/21 13:37 Cholesterol/HDL Ratio 3.50 % 07/13/21 13:37 Urine Color Yellow (Yellow) 07/13/21 13:45 Urine Turbidity Clear (Clear) 07/13/21 13:45 Urine pH 6.0 (5.0-7.0) 07/13/21 13:45 Ur Specific [place] 1.013 (1.003-1.030) 07/13/21 13:45 Urine Protein 100 mg/dl mg/dL (Negative) 07/13/21 13:45 Urine Glucose (UA) Neg mg/dL (Negative) 07/13/21 13:45 Urine Ketones Neg mg/dL (Negative) 07/13/21 13:45 Urine Blood Sm (Negative) 07/13/21 13:45 Urine Nitrite Neg (Negative) 07/13/21 13:45 Urine Bilirubin Neg (Negative) 07/13/21 13:45 Urine Urobilinogen < 2.0 mg/dL (<2.0) 07/13/21 13:45 Ur Leukocyte Esterase Sm (Negative) 07/13/21 13:45 Urine WBC (Auto) 9.0 /HPF (0.0-6.0) H 07/13/21 13:45 Urine RBC (Auto) 8.0 /HPF (0.0-6.0) 07/13/21 13:45 U Epithel Cells (Auto) 5.0 /HPF (0-13.0) 07/13/21 13:45 Urine Mucus Few /HPF 07/13/21 13:45 Blood Type A POSITIVE 07/13/21 14:00 Antibody Screen Negative 07/13/21 14:00 Active Medications - Current Medications Current Medications: Generic Name Dose Route Start Last Admin Trade Name Freq PRN Reason Stop Dose Admin Acetaminophen 650 mg 07/13/21 16:13 Acetaminophen 325 Mg Tab PO Q4H PRN Pain MILD(1-3)/Fever >100.5/VILLALOBOS Albuterol 2.5 mg 07/13/21 16:13 Albuterol 2.5 Mg/3 Ml Nebu IH Q4HRT PRN Shortness Of Breath Aspirin 81 mg 07/14/21 06:00 07/14/21 06:29 Aspirin 81 Mg Tab Chew PO 81 mg DAILY TOMER Administration Atorvastatin Calcium 40 mg 07/13/21 22:00 07/13/21 22:17 Atorvastatin 40 Mg Tab PO 40 mg QHS TOMER Administration Carvedilol 25 mg 07/13/21 17:14 07/14/21 06:28 Carvedilol 25 Mg Tab PO 25 mg BID TOMER Administration Clopidogrel Bisulfate 75 mg 07/14/21 06:00 07/14/21 06:29 Clopidogrel 75 Mg Tab PO 75 mg DAILY TOMER Administration Heparin Sodium (Porcine) 3,700 unit 07/13/21 13:51 07/13/21 14:03 Heparin 10,000 Units/10 Ml Vial 40 unit/kg (3700 unit) 3,700 unit IV Administration Q6H PRN Anti-Xa Assay less than 0.1 un Hydralazine HCl 100 mg 07/13/21 17:16 07/14/21 06:28 Hydralazine 100 Mg Tab PO 100 mg BID TOMER Administration Hydromorphone HCl 0.5 mg 07/13/21 16:13 07/13/21 23:42 Hydromorphone 1 Mg/1 Ml Inj IV 0.5 mg Q12H PRN Administration Pain , Severe (7-10) Heparin Sodium/Sodium Chloride 25,000 unit in 500 mls @ 20 mls/hr 07/13/21 14:00 07/14/21 06:24 Heparin/ 0.45% Nacl-25,000 Unit/500 Ml IV 1,100 units/hr TITRATE TOMER 22 mls/hr Titration Protocol 1,000 UNITS/HR Nitroglycerin/Dextrose 50 mg in 250 mls @ 3 mls/hr 07/13/21 13:55 07/14/21 00:38 Tridil Drip 50mg/250ml IV 07/17/21 01:14 0 mcg/min TITR ONE 0 mls/hr Titration Protocol 10 MCG/MIN Sodium Chloride 1,000 mls @ 50 mls/hr 07/14/21 06:30 07/14/21 07:32 Nacl 0.9% 1000 Ml IV 50 mls/hr DIRECT TOMER Administration Isosorbide Mononitrate 30 mg 07/14/21 10:00 Isosorbide Mononitrate Er 30 Mg Tab PO QDAY [facility] Morphine Sulfate 2 mg 07/13/21 16:13 07/13/21 18:12 Morphine 2 Mg/1 Ml Inj IV 2 mg Q6H PRN Administration Pain, Moderate (4-6) Ondansetron HCl 4 mg 07/13/21 16:13 07/13/21 20:30 Ondansetron 4 Mg/2 Ml Inj IV 4 mg Q8H PRN Administration Nausea And Vomiting Potassium Chloride 10 meq 07/14/21 10:00 Potassium Chloride Er 10 Meq Tab PO QDAY [facility] Sodium Chloride 10 ml 07/13/21 22:00 07/13/21 22:18 Sodium Chloride 0.9% 10 Ml Flush Syringe IV 10 ml BID TOMER Administration Sodium Chloride 10 ml 07/13/21 16:13 Sodium Chloride 0.9% 10 Ml Flush Syringe IV PRN PRN LINE FLUSH
[2021-07-14] MEDS ORDERED: ASPIRIN 81 MG TAB CHEW PO SCH (10:00)
[2021-07-14] MEDS ORDERED: CLOPIDOGREL 75 MG TAB PO SCH (10:00)
--- NOTE | 2021-07-14 10:15 | Cardiac Catherization Report ---
DATE OF PROCEDURE: 07/14/2021 CARDIAC CATHETERIZATION REFERRING PHYSICIAN: Hospitalist service. [address] [address] FREIGHT BRAKE COUPLER: Dr. Huston. INDICATIONS FOR PROCEDURE: The patient is a 56-year-old -[place] gentleman with an extensive history of coronary artery disease, severe ischemic and nonischemic cardiomyopathy, multiple MIs, presented yesterday with chest pain, ST segment depression, found to have significant hypertension, questionable compliance, known chronic kidney disease, kidney disease coverage between 1.8 and 2.2, today is 1.9, on IV heparin, referred for left heart catheterization. Risks, benefits, potential alternatives explained at length prior to obtaining informed consent. PROCEDURE IN DETAIL: The patient was brought to laboratory analyst in a postabsorptive state. He was prehydrated appropriately. Risk of contrast-induced nephropathy discussed with the patient. The patient is chest pain free and clinically stable at this point, prepped and draped in sterile fashion. A 2 mL of 2% lidocaine used to anesthetize the right wrist. A standard 6-Australian sheath placed in the right radial artery via modified Seldinger technique. All exchanges performed to exchange a J-tip guidewire. JL3.5 catheter used to engage the left main. No dampening or ventricularization. Cineangiography performed in all projections. JR4 catheter used to cross the aortic valve under fluoroscopic guidance. Left ventriculography performed in the TAJIK projections via hand injections, catheter flushed. Manual pullback performed with continuous pressure monitoring. Catheter used to engage the right coronary. No dampening or ventricularization. Cineangiography performed in all projections. Next, catheter removed from the body of wire, sheath removed. Manual pressure used to achieve hemostasis. DATA: Aortic pressure is 100/70, LV pressure is 100. LVEDP of 22 mmHg. Left ventriculography reveals severe global left ventricular hypokinesis, estimated ejection fraction of 10%. No aortic stenosis. CORONARY ANATOMY: This is a right dominant system. Right coronary is a moderate-sized vessel, courses AV groove. Diffuse mild to moderate nonobstructive disease. Maximal narrowing of 50%-60% in the mid segment. Left main without significant disease, bifurcates into left anterior descending and left circumflex. Left circumflex is a moderate-sized vessel, courses AV groove. There is a 95% stenosis in the mid left circumflex. This is the culprit with CARINA 2 to CARINA 3 flow. LAD is a moderate-sized vessel, courses anterior intergroove, wraps around the apex. There is a 70%-80% mid LAD stenosis with CARINA 3 flow. At this point, the patient is chest pain free, clinically stable, electrically stable. He was having ST depression yesterday and chest pain, but no longer. I directly supervised initiation of moderate sedation with fentanyl and Versed from 9:06 a.m. to 9:37 a.m. No immediate complications. CONCLUSIONS: 1. Severe 2-vessel disease, 95% mid circumflex and 80% mid LAD stenoses. 2. Severe global left ventricular hypokinesis, estimated ejection fraction of 10%. 3. Mildly elevated LVEDP. 4. No evidence of aortic stenosis. The patient is actually clinically stable, chest pain free. I am concerned about moving forward with PCI here without circulatory support in the form of Impella as the patient is now clinically stable, chest pain free with CARINA 2 and CARINA 3 flow on dual-antiplatelet therapy. Discussed with [facility], we will transfer for Impella-supported complex PCI. If the patient develops further chest pain, consider doing a PCI here. At this point, we will continue IV heparin, dual-antiplatelet therapy. Watch him in the ICU. Awaiting transfer to [facility]. Results of his procedure and plan of care discussed with the patient at length. All questions were addressed. TID: [id number] RECEIPT: [id number] BRENNEN/LOREE/NYASIA
[2021-07-14] MEDS: POTASSIUM CHLORIDE ER 10 MEQ TAB PO SCH (10:42)
--- NOTE | 2021-07-14 15:39 | Discharge Summary ---
Providers - Providers Date of Admission: 07/13/21 16:13 Attending physician: ERICA SARABIA MD 07/13/21 Consult to Cardiac Rehabilitation [CONS] Routine Reason For Exam: Phase 1 07/13/21 17:30 Consult to Physician [CONS] Stat Comment: Consulting Provider: NIRMAL RAVI Physician Instructions: Reason For Exam: chest pain Primary care physician: JOSEPHINE MONROE Hospitalization Reason for admission: chest pain Condition: Stable Hospital course: 56 YO Male with CHF (EF 10%) patient is currently not wearing his LifeVest, CAD S/P Stent Placement on DAPT, HTN, LA, Obesity presents to ED for evaluation. Patient reports "my chest hurts". Patient states that he has experienced a sudden onset of chest pain that began approximately 2 hours ago. Patient states the pain is 10/10, constant, sharp in nature, associated with shortness of breath, associated with diaphoresis. Patient also acknowledges lower extremity edema with worsening symptoms over the past 2 weeks, orthopnea, paroxysmal nocturnal dyspnea, dyspnea on exertion, dyspnea at rest, as well as decreased exercise tolerance. Patient states that pain is worsened with exertion, relieved with rest, as well as relieved with nitro. EMS was notified and upon arrival the patient was found to be in distress and subsequently transported to [facility] for further care and evaluation of the aforementioned symptoms. The patient was seen and evaluated in the emergency department. All lab and imaging studies reviewed. Patient found to have clinical symptoms consistent with CHF decompensation, angina at rest, GREGG, malignant hypertension, as well as lab findings consistent with NSTEMI. Patient admitted to IMCU and initiated on nitro drip as well as CHF protocol. Cardiology team consulted in ED. Patient denies fever, chills, productive cough, skin rash, recent ill contacts, known exposure to COVID-19. Prior admission on 04/04/2021 reviewed. All medication listed at time of admission has been reconciled. Advanced care planning conducted in ED. Echocardiogram 12/28/2020- EF 10 to 15% Left ventricle is moderately dilated. LVEF is severely decreased. mild concentric lvh severe diastolic dysfunction is present restrictive filling There is severe global hypokinesis of the left ventricle right ventricle is severely dilated. Right ventricle is hypokinetic left atrium is moderately dilated. Right atrium is severely dilated. moderate tricuspid regurgitation. RVSP 68mmhg PCI - Date: 01/25/2020-Left main patent LAD proximal mid stent 10-20% in-stent restenosis diagonal 1 stent 10% in-stent restenosis distal LAD 20% ramus 20% diffuse disease. Circumflex 20% OM1 patent OM 2 100% chronic total occlusion, RCA mid stent patent distal PCI with [employer] Synergy 3.5 x 38 mm distal RCA to PDA 3.0 x 8 m drug-eluting [employer] Synergy dilated distal RCA with 3.75 balloon. Severe LV dysfunction Nuclear Stress Test SPECT MULTI Date: 10/24/2020-Large areas of infarction in the anterior lateral region severe LV dysfunction no significant ischemia 3/4: Patient seen and examined discussed with cardiology patient continues on heparin drip and atorvastatin and Coreg. Based on findings on the Lab patient has been recommended for transfer to [place] for specialized and higher level of care. EF is noted to be down to 5 to 10%. (1) NSTEMI (non-ST elevated myocardial infarction) Current Visit: Yes Status: Acute Plan to address problem: ACS protocol: Serial cardiac enzymes, EKG, telemetry, cardiology team consulted in ED. Patient initiated on heparin drip. Patient pending cardiac cath in a.m. (2) Acute CHF Current Visit: No Status: Acute Qualifiers: Heart failure type: systolic Qualified Code(s): I50.21 - Acute systolic (congestive) heart failure Plan to address problem: CHF protocol: Strict I/O, monitor urine output every shift, daily weight, afterload reduction, blood pressure control, cardiology team consulted in ED. Further care and management as per cardiology team. (3) Malignant hypertension Current Visit: Yes Status: Acute Plan to address problem: Monitor blood pressure every shift, continue medical management (4) GREGG (acute kidney injury) Current Visit: Yes Status: Acute Plan to address problem: Monitor urine output every shift, BMP, repeat BMP in a.m. to monitor serum creatinine as well as GFR. (5) CAD (coronary artery disease)-status post PCI Current Visit: Yes Status: Acute Plan to address problem: Risk factor reduction therapy, continue dual antiplatelet therapy, supportive care, low-cholesterol diet. (6) ischemic cardiomyopathy (7) DVT prophylaxis Current Visit: Yes Status: Acute Plan to address problem: SCD to bilateral lower extremities while in bed, continue therapeutic anticoagulation (8) Advance care planning Current Visit: Yes Status: Acute Plan to address problem: Disease education conducted, care plan discussed, diagnoses discussed, prognosis discussed, patient is full code. Patient counseled regarding compliance with LifeVest. Patient counseled regarding compliance with outpatient medication and low-sodium diet. Patient knowledges understanding instructions. +30 minutes Disposition: 02 SHORT TERM HOSPITAL Final Discharge Diagnosis (Prints w/discharge instructions): Non-ST elevated LA, CAD status post PCI Time spent for discharge: 35 minutes Core Measure Documentation - Palliative Care Palliative Care/ Comfort Measures: Not Applicable - Core Measures Any of the following diagnoses?: acute LA - Acute LA Discharge Requirements Aspirin at discharge: Yes LUCIANO/ARB for LVSD if EF <40%: Yes Beta rubens at discharge: Yes Statin for LDL = or >100 mg/dl on DC: Yes Exam - Physical Exam Narrative exam: VITAL SIGNS: Reviewed. GENERAL: The patient appears normally developed, Vital signs as documented. HEAD: No signs of head trauma. EYES: Pupils are equal. Extraocular motions intact. EARS: Hearing grossly intact. MOUTH: Oropharynx is normal. NECK: No adenopathy, no JVD. CHEST: Chest with clear breath sounds bilaterally. No wheezes, rales, or rhonchi. CARDIAC: Regular rate and rhythm. S1 and S2, without murmurs, gallops, or rubs. VASCULAR: No Edema. Peripheral pulses normal and equal in all extremities. ABDOMEN: Soft, non tender and non distended. No rebound or guarding, and no masses palpated. Bowel Sounds normal. MUSCULOSKELETAL: Good range of motion of all major joints. Extremities without clubbing, cyanosis or edema. NEUROLOGIC EXAM: Alert and oriented x 3 No focal sensory or strength deficits. Speech normal. Follows commands. PSYCHIATRIC: Mood normal. SKIN: detail exam as documented in skin assessment - Constitutional Vitals: Temp Pulse Resp BP Pulse Ox 97.5 F L 74 20 132/77 94 07/14/21 04:00 07/14/21 15:00 07/14/21 15:00 07/14/21 15:00 07/14/21 15:00 Plan Activity: advance as tolerated, fall precautions Diet: low fat Special Instructions: record daily weights, record daily BP diary Plan of Treatment: Patient for transfer to continue management of CAD. Follow up with: JOSEPHINE MONROE MD [Primary Care Provider] - 7 Days
[2021-07-14] MEDS: HEPARIN/ 0.45% NACL DRIP 25,000 UNIT/500 ML BAG IV SCH (16:24)
--- NOTE | 2021-07-14 16:35 | Progress Note ---
Assessment and Plan 56-year-old male with a past medical history of ischemic cardiomyopathy EF 10 to 15%, coronary artery disease s/p PCI, pretension, history of CO, CKD, pulmonary hypertension reported to the ED today for complaint of chest pain which started 2 hours prior to arrival in the ED Chest pain Hypertensive urgency Ischemic cardiomyopathy Coronary artery disease s/p PCI CKD Echocardiogram 12/28/2020- EF 10 to 15% Left ventricle is moderately dilated. LVEF is severely decreased. mild concentric lvh severe diastolic dysfunction is present restrictive filling There is severe global hypokinesis of the left ventricle right ventricle is severely dilated. Right ventricle is hypokinetic left atrium is moderately dilated. Right atrium is severely dilated. moderate tricuspid regurgitation. RVSP 68mmhg PCI - Date: 01/25/2020-Left main patent LAD proximal mid stent 10-20% in-stent restenosis diagonal 1 stent 10% in-stent restenosis distal LAD 20% ramus 20% diffuse disease. Circumflex 20% OM1 patent OM 2 100% chronic total occlusion, RCA mid stent patent distal PCI with [place] Synergy 3.5 x 38 mm distal RCA to PDA 3.0 x 8 m drug-eluting [place] [employer] Synergy dilated distal RCA with 3.75 balloon. Severe LV dysfunction Nuclear Stress Test SPECT MULTI Date: 10/24/2020-Large areas of infarction in the anterior lateral region severe LV dysfunction no significant ischemia Cardiac cath 07/14/2021-severe two-vessel disease 95% mid circumflex and 80% mid LAD stenosis. Severe global left ventricle hypokinesis EF of 10%. Plan: Continue heparin drip Continue atorvastatin, Coreg 25 mg p.o. twice daily, hydralazine 100 mg p.o. twice daily, Imdur 30 mg p.o. daily Continue DAPT therapy with aspirin and Plavix Will stop nitro drip has BP is currently controlled Patient reports his LifeVest however patient not currently wearing it. Reports that his batteries Patient to be transferred to [place] due to severely decreased EF severe two- vessel disease and no circulatory support in form of Impella. Case discussed with Dr. Salgado at [place] Plan of care discussed with patient who verbalized understanding and acknowledgment and agrees Patient seen in conjunction with Dr. Subramanian who agrees with this plan of care - Patient Problems (1) GREGG (acute kidney injury) Current Visit: No Status: Acute (2) Acute on chronic HFrEF (heart failure with reduced ejection fraction) Current Visit: No Status: Acute (3) CRI (chronic renal insufficiency) Current Visit: No Status: Inactive (4) Chest pain Current Visit: No Status: Acute (5) Hypertensive emergency Current Visit: No Status: Inactive (6) HTN (hypertension) Current Visit: No Status: Chronic Qualifiers: Hypertension type: primary hypertension Qualified Code(s): I10 - Essential (primary) hypertension (7) History of myocardial infarction Current Visit: No Status: Chronic (8) Hyperlipemia, mixed Current Visit: No Status: Chronic (9) Moderate pulmonary hypertension Current Visit: No Status: Chronic (10) Stented coronary artery Current Visit: No Status: Chronic Subjective Date of service: 07/14/21 Principal diagnosis: NSTEMI/hypertensive emergency Interval history: Patient with cardiac cath this a.m. Sinus 60s with PVCs on monitor Objective Vital Signs Temp Pulse Pulse Resp BP Pulse Ox 07/14/21 16:00 73 21 113/85 93 07/14/21 15:30 72 18 132/77 97 07/14/21 15:00 74 20 132/77 94 07/14/21 14:30 67 15 126/91 94 07/14/21 14:00 77 86 15 126/91 96 07/14/21 13:30 64 22 107/76 98 07/14/21 13:00 63 16 107/76 07/14/21 12:30 66 21 101/70 96 07/14/21 12:00 61 14 101/70 07/14/21 11:30 64 16 109/77 97 07/14/21 11:00 55 L 22 109/77 07/14/21 10:42 64 107/74 07/14/21 10:30 59 L 25 H 97/70 98 07/14/21 10:00 62 84 25 H 147/105 96 07/14/21 09:49 147/105 95 07/14/21 07:00 76 16 126/91 94 07/14/21 06:30 78 17 117/66 96 07/14/21 06:28 72 17 110/79 95 07/14/21 06:08 79 07/14/21 06:00 80 25 H 98/68 96 07/14/21 05:30 74 18 93/59 98 07/14/21 05:00 76 23 113/72 97 07/14/21 04:30 77 29 H 109/86 93 07/14/21 04:00 97.5 F L 77 15 123/84 97 07/14/21 03:30 75 21 102/56 98 07/14/21 03:00 76 15 122/89 97 07/14/21 02:30 67 12 120/85 96 07/14/21 02:00 75 75 17 119/92 95 07/14/21 01:30 72 13 133/90 95 07/14/21 01:00 83 16 143/96 98 07/14/21 00:30 72 15 117/77 98 07/14/21 00:07 18 07/14/21 00:00 82 10 L 126/95 99 07/13/21 23:42 17 07/13/21 23:30 82 17 145/109 100 07/13/21 23:25 82 07/13/21 23:12 83 19 140/105 99 07/13/21 23:06 96 07/13/21 23:05 97.7 F 07/13/21 22:30 83 26 H 150/104 96 07/13/21 22:17 81 150/104 07/13/21 22:16 77 26 H 150/104 98 07/13/21 22:00 79 28 H 148/109 99 07/13/21 21:46 93 H 23 163/125 96 07/13/21 21:30 88 22 163/117 98 07/13/21 21:16 91 H 21 163/117 98 07/13/21 21:00 93 H 12 182/137 97 07/13/21 20:46 95 H 19 183/124 98 07/13/21 20:30 99 H 26 H 176/127 97 07/13/21 20:16 91 H 18 176/127 99 07/13/21 20:00 92 H 20 178/139 99 07/13/21 19:46 103 H 22 170/131 97 07/13/21 19:30 96 H 30 H 181/120 97 07/13/21 19:16 96 H 20 181/120 98 07/13/21 19:00 106 H 25 H 179/133 99 07/13/21 18:46 97 H 15 174/126 98 07/13/21 18:30 99 H 18 173/123 99 07/13/21 18:15 97 H 17 173/123 98 07/13/21 18:00 95 H 16 179/133 98 07/13/21 17:45 98 H 13 176/129 98 07/13/21 17:30 98 H 14 182/127 97 07/13/21 17:15 95 H 13 182/127 97 07/13/21 17:01 99 H 14 184/142 98 07/13/21 16:45 98 H 16 183/134 95 - Physical Examination General: No Apparent Distress HEENT: Positive: PERRL Neck: Positive: trachea midline Cardiac: Positive: Reg Rate and Rhythm Lungs: Positive: Normal Breath Sounds Neuro: Positive: Grossly Intact Abdomen: Positive: Soft, Active Bowel Sounds Skin: Negative: Rash, Suspicious Lesions, Ulceration Extremities: Present: upper extr. pulses. Absent: edema - Labs and Meds Coagulation 07/14/21 Range/Units 04:05 PT 14.3 (12.2-14.9) Sec. INR 1.00 (0.87-1.13) CBC 07/14/21 Range/Units 04:05 WBC 7.5 (4.5-11.0) K/mm3 RBC 4.51 (3.65-5.03) M/mm3 Hgb 13.8 (11.8-15.2) gm/dl Hct 42.9 (35.5-45.6) % Plt Count 211 (140-440) K/mm3 Lymph # (Auto) 1.5 (1.2-5.4) K/mm3 Harney # (Auto) 0.6 (0.0-0.8) K/mm3 Eos # (Auto) 0.0 (0.0-0.4) K/mm3 Baso # (Auto) 0.1 (0.0-0.1) K/mm3 Comprehensive Metabolic Panel 07/14/21 Range/Units 04:05 Sodium 135 L (137-145) mmol/L Potassium 4.1 (3.6-5.0) mmol/L Chloride 103.4 (98-107) mmol/L Carbon Dioxide 18 L (22-30) mmol/L BUN 27 H (9-20) mg/dL Creatinine 1.9 H (0.8-1.3) mg/dL Glucose 108 H (75-100) mg/dL Calcium 8.4 (8.4-10.2) mg/dL - Imaging and Cardiology Echo: report reviewed - Telemetry EKG Rhythm: Sinus Rhythm - EKG Sinus rhythms and dysrhythmias: sinus rhythm Ventricular dysrhythmias: ventricular premature com
--- NOTE | 2021-07-14 17:32 | Electrocardiograph Report ---
[facility] Test Date: 2021-07-13 Test Time: 13:27:45 Pat Name: MO FLOREZ Department: Room: A264 Gender: M Lens Silverer: PHUONG : 1965 Requested By: XENA HARVEY Order Number: [id number] Reading MD: Susan Malone Measurements Intervals [place] Rate: 93 P: 51 VA: 159 QRS: 1 QRSD: 99 T: 139 QT: 428 QTc: 533 Interpretive Statements Poor quality ECG Sinus rhythm with intermittent PVCs ST depression, consider anterior ischemia Compared to ECG 05/04/2021 18:05:[address] depression is more prominent Electronically Signed On 07-14-2021 17:32:24 EST by Susan Malone
--- NOTE | 2021-07-14 17:42 | Electrocardiograph Report ---
[facility] Test Date: 2021-07-14 Test Time: 10:43:34 Pat Name: MO FLOREZ Department: Room: A264 1 Gender: M Is Consultant: CLINTON : 1965 Requested By: ERICA SARABIA Order Number: [id number] Reading MD: Susan Malone Measurements Intervals [place] Rate: 63 P: 55 MD: 170 QRS: -18 QRSD: 96 T: 202 QT: 540 QTc: 555 Interpretive Statements Sinus rhythm Probable left atrial enlargement Nonspecific T wave abnormality Compared to ECG 07/13/2021 13:27:45 PVCs no longer evident Electronically Signed On 07-14-2021 17:42:12 EST by Susan Malone
--- NOTE | 2021-07-14 17:44 | Electrocardiograph Report ---
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
[2021-07-15] MEDS: CLOPIDOGREL 75 MG TAB PO SCH (09:33)
[2021-07-15] MEDS: POTASSIUM CHLORIDE ER 10 MEQ TAB PO SCH (09:33)
[2021-07-15] MEDS: ASPIRIN 81 MG TAB CHEW PO SCH (09:34)
[2021-07-15] MEDS: hydrALAZINE 100 MG TAB PO SCH (09:34)
[2021-07-15] MEDS: carvediloL 25 MG TAB PO SCH (09:34)
[2021-07-15 10:53] VITALS: BP 146/102
== END 2021-07-15 11:30 | disposition short-term general hospital (02) | DRG 280 ==
LOC: ED 13:05 → 4A 16:13 → IMCU 19:07
PROVIDERS: ADMIT Internal Medicine; ATTEND Internal Medicine
PROC: 4A023N7 Measurement of Cardiac Sampling and Pressure, Left Heart, Percutaneous Approach (ICD-10-PCS; principal; 2021-07-14)
PROC: B2111ZZ Fluoroscopy of Multiple Coronary Arteries using Low Osmolar Contrast (ICD-10-PCS; 2021-07-14)
PROC: B2151ZZ Fluoroscopy of Left Heart using Low Osmolar Contrast (ICD-10-PCS; 2021-07-14)
DX: I21.4 Non-ST elevation (NSTEMI) myocardial infarction (principal); I50.23 Acute on chronic systolic (congestive) heart failure; N17.9 Acute kidney failure, unspecified; I16.1 Hypertensive emergency; I13.0 Hypertensive heart and chronic kidney disease with heart failure and stage 1 through stage 4 chronic kidney disease, or unspecified chronic kidney disease; I25.10 Atherosclerotic heart disease of native coronary artery without angina pectoris; N18.9 Chronic kidney disease, unspecified; E11.22 Type 2 diabetes mellitus with diabetic chronic kidney disease; E66.9 Obesity, unspecified; Z68.29 Body mass index [BMI] 29.0-29.9, adult; I25.5 Ischemic cardiomyopathy; I27.20 Pulmonary hypertension, unspecified; E78.2 Mixed hyperlipidemia; Z88.2 Allergy status to sulfonamides; Z83.3 Family history of diabetes mellitus; Z82.49 Family history of ischemic heart disease and other diseases of the circulatory system; Z79.82 Long term (current) use of aspirin
CPT/HCPCS: 36415; 71045; 80048; 80053; 80061; 81001; 83735; 83880; 84484; 85025; 85520; 85610; 85730; 86850; 86900; 86901; 87086; 87641; 93005; 93010; 93458; G0378; J1815; J3490; Q0162; C1894; J1170; J1200; J1644; J2250; J2270; J2405; J3010; J7030; Q9967

== ENCOUNTER 2021-08-22 20:52 | Inpatient (IN) | payer SELFPAY ==
--- NOTE | 2021-08-22 21:41 | XRay Report ---
CHEST 2 VIEWS INDICATION / CLINICAL INFORMATION: CHEST PAIN. COMPARISON: One view of the chest from 07/13/2021. FINDINGS: SUPPORT DEVICES: None. HEART / MEDIASTINUM: Stable. LUNGS / PLEURA: Mild atelectasis/scarring is seen along the mid lungs and the right lung base. The nikole ngs are otherwise clear. No significant pleural effusion. No pneumothorax. ADDITIONAL FINDINGS: No significant additional findings. IMPRESSION: 1. No acute abnormality of the chest. 2. Additional findings as above. Signer Name: Alexis Mccauley MD Signed: 08/22/2021 9:37 PM Workstation Name: [id number]
[2021-08-22 21:56] LABS: Basophils % (Auto) 0.6 % (0.0-1.8); Eosinophils # (Auto) 0.1 K/mm3 (0.0-0.4); Eosinophils % (Auto) 0.9 % (0.0-4.3); Hematocrit 40.4 % (35.5-45.6); Lymphocytes # (Auto) 1.6 K/mm3 (1.2-5.4); Lymphocytes % (Auto) 22.1 % (13.4-35.0); Mean Corpuscular HGB Conc 32 % (32-34); Mean Corpuscular Volume 96 fl (84-94); Monocytes # (Auto) 0.5 K/mm3 (0.0-0.8); Monocytes % (Auto) 7.2 % (0.0-7.3); Platelet Count 225 K/mm3 (140-440); Red Blood Count 4.22 M/mm3 (3.65-5.03)
--- NOTE | 2021-08-22 22:22 | Emergency Department Report ---
ED Chest Pain HPI - General Chief Complaint: Chest Pain Stated Complaint: CHEST PAIN Time Seen by Provider: 08/22/21 22:12 Source: patient Mode of arrival: Wheelchair Limitations: No Limitations - History of Present Illness Initial Comments: Patient is a 56-year-old male with history of CAD, [place] x3 and multiple stents presenting with complaint of left-sided chest discomfort for the past 3 days. He describes the pain as a sharp needlelike sensation that radiates down his left arm. He also reports increasing shortness of breath on exertion. Modifyin g factors worse chest pain include exertion. He reports having his last stent placed 3 weeks ago and states he was doing well for the first 2 weeks. -: Gradual, days(s) (3) Pain Location: left chest Pain Radiation: LUE Severity: moderate Quality: sharp Consistency: intermittent Improves With: nothing Worsens With: exertion Context: recent surgery re: dyspnea. denies: nausea, vomting Other Symptoms: denies: cough, fever, rash Treatments Prior to Arrival: none - Related Data Previous Rx's Medication Instructions Recorded Last Taken Type Aspirin [Aspirin BABY CHEW TAB] 81 mg PO QDAY tab.chew 12/31/20 05/05/21 Rx Aspirin [Aspirin BABY CHEW TAB] 81 mg PO DAILY #30 tab.chew 05/08/21 Unknown Rx AtorvaSTATin [Lipitor] 40 mg PO QHS #30 tablet 05/08/21 Unknown Rx Clopidogrel [Plavix] 75 mg PO DAILY #30 05/08/21 Unknown Rx Furosemide [Lasix TAB] 40 mg PO BID #60 05/08/21 Unknown Rx ISOSORBIDE MONOnitrate [Imdur ER] 30 mg PO QDAY #30 tablet 05/08/21 Unknown Rx Potassium Chloride 10 meq PO BID #60 05/08/21 Unknown Rx Potassium Chloride [K-Dur] 10 meq PO QDAY #30 tablet 05/08/21 Unknown Rx carvediloL [Coreg] 25 mg PO BID #60 tablet 05/08/21 Unknown Rx hydrALAZINE [Apresoline TAB] 100 mg PO BID #60 tab 05/08/21 Unknown Rx Allergies Allergy/AdvReac Type Severity Reaction Status Date / Time Sulfa (Sulfonamide Allergy Anaphylaxis Verified 07/13/21 13:28 Antibiotics) Heart Score - HEART Score History: Moderately suspicious EKG: Non-specific Age: 45-65 Risk factors: > 3 risk factors or hx of atherosclerotic disease Troponin: 1-3x normal limit HEART Score: 6 - EKG Read Time Time EKG Completed: 21:03 EKG Read Time: 21:07 ED Review of Systems ROS: Stated complaint: CHEST PAIN Other details as noted in HPI Constitutional: no symptoms reported Eyes: denies: eye pain, eye discharge, vision change Respiratory: SOB with exertion, SOB at rest Cardiovascular: chest pain, dyspnea on exertion Endocrine: no symptoms reported Gastrointestinal: denies: abdominal pain, nausea, vomiting Genitourinary: denies: urgency, dysuria Musculoskeletal: denies: back pain, joint swelling Skin: denies: rash, lesions Neurological: denies: headache, weakness, paresthesias Psychiatric: denies: anxiety, depression Hematological/Lymphatic: denies: easy bleeding, easy bruising ED Past Medical Hx - Past Medical History Hx Hypertension: Yes Hx Heart Attack/AMI: Yes Hx Congestive Heart Failure: Yes Hx Diabetes: No Hx Asthma: No Hx COPD: No Hx Tuberculosis: Yes - Surgical History Hx Coronary Stent: Yes (X6) - Social History Smoking Status: Former Smoker - Medications Home Medications: Home Medications Medication Instructions Recorded Confirmed Last Taken Type Aspirin [Aspirin BABY CHEW TAB] 81 mg PO QDAY tab.chew 12/31/20 05/06/21 05/05/21 Rx Aspirin [Aspirin BABY CHEW TAB] 81 mg PO DAILY #30 tab.chew 05/08/21 Unknown Rx AtorvaSTATin [Lipitor] 40 mg PO QHS #30 tablet 05/08/21 Unknown Rx Clopidogrel [Plavix] 75 mg PO DAILY #30 05/08/21 Unknown Rx Furosemide [Lasix TAB] 40 mg PO BID #60 05/08/21 Unknown Rx ISOSORBIDE MONOnitrate [Imdur ER] 30 mg PO QDAY #30 tablet 05/08/21 Unknown Rx Potassium Chloride 10 meq PO BID #60 05/08/21 Unknown Rx Potassium Chloride [K-Dur] 10 meq PO QDAY #30 tablet 05/08/21 Unknown Rx carvediloL [Coreg] 25 mg PO BID #60 tablet 05/08/21 Unknown Rx hydrALAZINE [Apresoline TAB] 100 mg PO BID #60 tab 05/08/21 Unknown Rx ED Physical Exam - General Limitations: No Limitations General appearance: alert, in no apparent distress - Head Head exam: Present: atraumatic, normocephalic - Eye Eye exam: Present: normal appearance, EOMI - Neck Neck exam: Present: normal inspection. Absent: tenderness - Respiratory Respiratory exam: Present: normal lung sounds bilaterally. Absent: respiratory distress, wheezes - Cardiovascular Cardiovascular Exam: Present: regular rate, normal rhythm, systolic murmur - GI/Abdominal GI/Abdominal exam: Present: soft. Absent: distended, tenderness - Rectal Rectal exam: Present: deferred - Neurological Exam Neurological exam: Present: alert, oriented X3 - Psychiatric Psychiatric exam: Present: normal affect, normal mood - Skin Skin exam: Present: warm, dry, intact, normal color. Absent: rash ED Course Vital Signs 08/22/21 20:56 Temperature 98.1 F Pulse Rate 98 H Respiratory 20 Rate Blood Pressure 175/131 O2 Sat by Pulse 99 Oximetry CARINA score - Carina Score Age > 65: (0) No Aspirin use within the Past 7 Days: (1) Yes 3 or more CAD Risk Factors: (1) Yes 2 or more Angina events in past 24 hrs: (1) Yes Known CAD with more than 50% Stenosis: (1) Yes Elevated Cardiac Markers: (1) Yes ST Deviation Greater than 0.5mm: (1) Yes CARINA Score: 6 ED Medical Decision Making - Lab Data Result diagrams: 08/22/21 21:39 08/22/21 21:39 - Medical Decision Making No acute ischemic findings on EKG. Initial troponin 0.031. Heart score 6. Will admit. Critical care attestation.: If time is entered above; I have spent that time in minutes in the direct care of this critically ill patient, excluding procedure time. ED Disposition Clinical Impression: Chest pain, History of myocardial infarction, CAD (coronary artery disease) Disposition: 09 ADMITTED INPATIENT Is pt being admited?: Yes Does the pt Need Aspirin: No Condition: Stable
[2021-08-22 22:23] LABS: Albumin 3.1 g/dL (3.9-5); Calcium 8.8 mg/dL (8.4-10.2)
[2021-08-22 22:36] LABS: Chol/HDL Ratio 4.5 %
[2021-08-23] MEDS ORDERED: ASPIRIN 81 MG TAB CHEW PO ONE (00:49)
[2021-08-23] MEDS ORDERED: MORPHINE 4 MG/1 ML INJ IV ONE (00:49)
[2021-08-23] MEDS ORDERED: MORPHINE 2 MG/1 ML INJ IV PRN (02:14)
[2021-08-23] MEDS ORDERED: NITROGLYCERIN 0.4 MG TAB SUBL SL PRN (02:14)
[2021-08-23] MEDS ORDERED: ONDANSETRON 4 MG/2 ML INJ IV PRN (02:14)
[2021-08-23] MEDS ORDERED: traMADol 50 MG TAB PO PRN (02:14)
[2021-08-23] MEDS ORDERED: MORPHINE 4 MG/1 ML INJ IV PRN ×2 (02:14)
[2021-08-23] MEDS ORDERED: MAGNESIUM HYDROXIDE (MOM) ORAL LIQD UDC PO PRN (02:14)
[2021-08-23] MEDS ORDERED: ACETAMINOPHEN 325 MG TAB PO PRN ×2 (02:14)
--- NOTE | 2021-08-23 02:34 | History and Physical Report ---
History of Present Illness Date of examination: 08/23/21 Date of admission: 08/23/2021 Chief complaint: Chest pain History of present illness: 36-year-old -[place] male known history of coronary artery disease, [place] x3 multiple stents presenting to the emergency room today complaining of left- sided chest pain that has been ongoing for the past 3 days. Patient describes pain as sharp and radiates towards the left upper extremity. He has had associated shortness of breath is worse on minimal exertion. Patient states he had stents placements about 3 weeks ago in a hospital [place]-he cannot recall the name of the hospital but states it was [facility].. He has been compliant with his medications and has been doing well until just a few days ago when chest pain started again. He denies any headache or dizziness and denies any diaphoresis. Denies any fever or chills, no nausea vomiting and no abdominal pain. Review of patient's records shows: Echocardiogram 12/28/2020- EF 10 to 15% Left ventricle is moderately dilated. L VEF is severely decreased. mild concentric lvh severe diastolic dysfunction is present restrictive filling There is severe global hypokinesis of the left ventricle right ventricle is severely dilated. Right ventricle is hypokinetic left atrium is moderately dilated. Right atrium is severely dilated. moderate tricuspid regurgitation. RVSP 68mmhg PCI - Date: 01/25/2020-Left main patent LAD proximal mid stent 10-20% in-stent restenosis diagonal 1 stent 10% in-stent restenosis distal LAD 20% ramus 20% diffuse disease. Circumflex 20% OM1 patent OM 2 100% chronic total occlusion, RCA mid stent patent distal PCI with [place] [employer] 3.5 x 38 mm distal RCA to PDA 3.0 x 8 m drug-eluting [place] [employer] Synergy dilated distal RCA with 3.75 balloon. Severe LV dysfunction Nuclear Stress Test SPECT MULTI Date: 10/24/2020-Large areas of infarction in the anterior lateral region severe LV dysfunction no significant ischemia Work-up in the emergency room today, significant findings was a slight elevation of troponin of 0.031. EKG was unremarkable. He also had a BUN of 28 and creatinine of 1.8 Chest x-ray showed no acute abnormality. Patient has been admitted for his chest pain evaluation. Past History Past Medical History: acute DC, heart failure, hypertension, other (Tuberculosis) Past Surgical History: PTCA Social history: smoking (Former smoker) Family history: no significant family history Medications and Allergies Allergies Allergy/AdvReac Type Severity Reaction Status Date / Time Sulfa (Sulfonamide Allergy Anaphylaxis Verified 07/13/21 13:28 Antibiotics) Home Medications Medication Instructions Recorded Confirmed Last Taken Type Aspirin [Aspirin BABY CHEW TAB] 81 mg PO DAILY #30 tab.chew 05/08/21 08/23/21 2 Days Ago Rx ~08/21/21 81 mg AtorvaSTATin [Lipitor] 40 mg PO QHS #30 tablet 05/08/21 08/23/21 2 Days Ago Rx ~08/21/21 40 mg Clopidogrel [Plavix] 75 mg PO DAILY #30 05/08/21 08/23/21 2 Days Ago Rx ~08/21/21 75 mg Furosemide [Lasix TAB] 40 mg PO BID #60 05/08/21 08/23/21 2 Days Ago Rx ~08/21/21 40 mg ISOSORBIDE MONOnitrate [Imdur ER] 30 mg PO QDAY #30 tablet 05/08/21 08/23/21 2 Days Ago Rx ~08/21/21 30 mg Potassium Chloride 10 meq PO BID #60 05/08/21 08/23/21 2 Days Ago Rx ~08/21/21 10 meq carvediloL [Coreg] 25 mg PO BID #60 tablet 05/08/21 08/23/21 2 Days Ago Rx ~08/21/21 25 mg hydrALAZINE [Apresoline TAB] 100 mg PO BID #60 tab 05/08/21 08/23/21 2 Days Ago Rx ~08/21/21 100 mg Potassium Chloride [K-Dur] 10 meq PO BID 08/23/21 08/23/21 2 Days Ago History ~08/21/21 10 meq Active Meds: Active Medications Acetaminophen (Acetaminophen 325 Mg Tab) 650 mg PO Q4H PRN PRN Reason: Pain MILD(1-3)/Fever >100.5/VILLALOBOS Acetaminophen (Acetaminophen 325 Mg Tab) 650 mg PO Q6H PRN PRN Reason: Pain, Mild (1-3) Aspirin (Aspirin Ec 325 Mg Tab) 325 mg PO QDAY TOMER Magnesium Hydroxide (Magnesium Hydroxide (Mom) Oral Liqd Udc) 30 ml PO Q4H PRN PRN Reason: Constipation Morphine Sulfate (Morphine 2 Mg/1 Ml Inj) 2 mg IV Q4H PRN PRN Reason: Pain, Moderate (4-6) Morphine Sulfate (Morphine 4 Mg/1 Ml Inj) 4 mg IV Q4H PRN PRN Reason: Pain , Severe (7-10) Morphine Sulfate (Morphine 4 Mg/1 Ml Inj) 2 mg IV Q5MIN PRN PRN Reason: Chest Pain unrelieved by NTG Nitroglycerin (Nitroglycerin 0.4 Mg Tab Subl) 0.4 mg SL Q5M PRN PRN Reason: Chest Pain Ondansetron HCl (Ondansetron 4 Mg/2 Ml Inj) 4 mg IV Q8H PRN PRN Reason: Nausea And Vomiting Sodium Chloride (Sodium Chloride 0.9% 10 Ml Flush Syringe) 10 ml IV BID TOMER Sodium Chloride (Sodium Chloride 0.9% 10 Ml Flush Syringe) 10 ml IV PRN PRN PRN Reason: LINE FLUSH Sodium Chloride (Sodium Chloride 0.9% 10 Ml Flush Syringe) 10 ml IV PRN PRN PRN Reason: LINE FLUSH Tramadol HCl (Tramadol 50 Mg Tab) 50 mg PO Q6H PRN PRN Reason: Pain, Moderate (4-6) Review of Systems Constitutional: no fever, no chills Ears, nose, mouth and throat: no nasal congestion, no sore throat Cardiovascular: chest pain, dyspnea on exertion Respiratory: shortness of breath, no cough Gastrointestinal: no abdominal pain, no nausea, no vomiting, no diarrhea Genitourinary Male: no dysuria, no hematuria, no flank pain Integumentary: no rash, no pruritis Neurological: no headaches, no confusion Psychiatric: no anxiety, no depression Endocrine: no polyphagia, no polydipsia, no polyuria, no nocturia Exam - Constitutional Vitals: Temp Pulse Resp BP Pulse Ox 98.1 F 98 H 20 175/131 99 08/22/21 20:56 08/22/21 20:56 08/22/21 20:56 08/22/21 20:56 08/22/21 20:56 General appearance: Present: no acute distress, well-nourished - EENT Eyes: Present: PERRL, EOM intact. Absent: scleral icterus ENT: hearing intact, clear oral mucosa, dentition normal - Neck Neck: Present: supple, normal ROM - Respiratory Respiratory effort: normal Respiratory: bilateral: CTA - Cardiovascular Rhythm: regular Heart Sounds: Present: S1 & S2, systolic murmur (Soft systolic murmur). Absent: gallop, diastolic murmur, rub, click - Extremities Extremities: no ischemia, pulses intact, pulses symmetrical, No edema, normal temperature, normal color, Full ROM Peripheral Pulses: within normal limits - Abdominal General gastrointestinal: Present: soft, non-tender, non-distended, normal bowel sounds. Absent: mass - Integumentary Integumentary: Present: clear, warm, dry, normal turgor. Absent: rash - Musculoskeletal Musculoskeletal: strength equal bilaterally - Psychiatric Psychiatric: appropriate mood/affect, no intact judgment & insight, memory intact - Neurologic Neurologic: CNII-XII intact, moves all extremities HEART Score - HEART Score History: Moderately suspicious EKG: Normal Age: 45-65 Risk factors: > 3 risk factors or hx of atherosclerotic disease Troponin: Troponin T 0.030 ng/mL (0.00-0.029) H 08/23/21 00:38 Troponin: 1-3x normal limit HEART Score: 5 Results - Labs CBC & Chem 7: 08/22/21 21:39 08/22/21 21:39 Labs: Abnormal lab results 08/22/21 08/22/21 08/23/21 Range/Units 21:39 21:39 00:38 MCV 96 H (84-94) fl RDW 17.0 H (13.2-15.2) % Sodium 135 L (137-145) mmol/L Carbon Dioxide 19 L (22-30) mmol/L BUN 28 H (9-20) mg/dL Creatinine 1.8 H (0.8-1.3) mg/dL Glucose 138 H (75-100) mg/dL Total Bilirubin 2.50 H (0.1-1.2) mg/dL Troponin T 0.031 H 0.030 H (0.00-0.029) ng/mL Total Protein 6.2 L (6.3-8.2) g/dL Albumin 3.1 L (3.9-5) g/dL HDL Cholesterol 38 L (40-59) mg/dL Assessment and Plan - Patient Problems (1) Chest pain Current Visit: Yes Status: Acute Plan to address problem: Patient admitted and placed on telemetry. We will check serial cardiac enzymes. Patient placed on daily aspirin, sublingual nitroglycerin and IV morphine as needed for chest pain. Will await further evaluation and recommendations by cardiology. (2) CAD (coronary artery disease) Current Visit: Yes Status: Acute Plan to address problem: Patient had cardiac stent placement about 3 weeks ago. We will continue routine home medications and also await further recommendations from cardiology. (3) GREGG (acute kidney injury) Current Visit: No Status: Acute Plan to address problem: Consult placed to nephrology for further evaluation and recommendations. (4) CHF (congestive heart failure) Current Visit: No Status: Acute Qualifiers: Heart failure type: unspecified Heart failure chronicity: acute on chronic Qualified Code(s): I50.9 - Heart failure, unspecified Plan to address problem: Resume routine home medications. (5) HTN (hypertension) Current Visit: No Status: Chronic Qualifiers: Hypertension type: primary hypertension Qualified Code(s): I10 - Essential (primary) hypertension Plan to address problem: We will resume routine home medications and monitor vital signs closely. (6) DVT prophylaxis Current Visit: No Status: Acute Plan to address problem: Patient placed on subcutaneous heparin. (7) Full code status Current Visit: Yes Status: Acute Plan to address problem: Patient is a full code.
[2021-08-23] MEDS ORDERED: hydrALAZINE 20 MG/1 ML INJ IV ONE (04:04)
[2021-08-23] MEDS ORDERED: diphenhydrAMINE 50 MG/ML VIAL IV ONE (04:04)
[2021-08-23] MEDS: carvediloL 25 MG TAB PO SCH ×2 (09:32→21:17)
[2021-08-23] MEDS: hydrALAZINE 100 MG TAB PO SCH ×2 (09:32→21:16)
[2021-08-23] MEDS: CLOPIDOGREL 75 MG TAB PO SCH ×2 (09:33→10:01)
[2021-08-23] MEDS ORDERED: SODIUM CHLORIDE 0.9% 500 ML 500 ML IV SCH (10:00)
[2021-08-23] MEDS ORDERED: VERAPAMIL 5 MG/2 ML INJ ONE (10:31)
[2021-08-23] MEDS ORDERED: LIDOCAINE (2%) 20 MG/1 ML VIAL 50 ML MDV INFILTRATI ONE (10:31)
[2021-08-23] MEDS ORDERED: HEPARIN/NS 5000 UNIT/500ML 1,000 ML IR ONE (10:31)
[2021-08-23] MEDS ORDERED: NITROGLYCERIN SYRINGE 3 ML ONE (10:31)
[2021-08-23] MEDS ORDERED: fentaNYL 100 MCG/2 ML INJ ONE (11:04)
[2021-08-23] MEDS ORDERED: MIDAZOLAM 2 MG/2 ML INJ ONE (11:04)
[2021-08-23 11:09] LABS: Basophils % (Auto) 0.5 % (0.0-1.8); Eosinophils # (Auto) 0.1 K/mm3 (0.0-0.4); Eosinophils % (Auto) 0.9 % (0.0-4.3); Hematocrit 38.6 % (35.5-45.6); Hemoglobin 12.6 gm/dl (11.8-15.2); Lymphocytes % (Auto) 14.8 % (13.4-35.0); Mean Corpuscular HGB Conc 33 % (32-34); Mean Corpuscular Volume 95 fl (84-94); Monocytes # (Auto) 0.5 K/mm3 (0.0-0.8); Platelet Count 209 K/mm3 (140-440); Red Blood Count 4.07 M/mm3 (3.65-5.03)
[2021-08-23] MEDS: HEPARIN 10,000 UNITS/10 ML VIAL ONE ×2 (11:18→11:31)
[2021-08-23 11:20] LABS: INR 1.15 (0.87-1.13)
[2021-08-23 11:24] LABS: Calcium 8.4 mg/dL (8.4-10.2)
[2021-08-23] MEDS ORDERED: HEPARIN 10,000 UNITS/10 ML VIAL ONE (11:45)
--- NOTE | 2021-08-23 12:01 | Consultation ---
History of Present Illness - Reason for Consult Consult date: 08/23/21 Past History Past Medical History: acute DC, heart failure, hypertension, other (Tuberculosis) Past Surgical History: PTCA Social history: smoking (Former smoker) Family history: no significant family history Medications and Allergies Allergies Allergy/AdvReac Type Severity Reaction Status Date / Time Sulfa (Sulfonamide Allergy Anaphylaxis Verified 07/13/21 13:28 Antibiotics) Home Medications Medication Instructions Recorded Confirmed Last Taken Type Aspirin [Aspirin BABY CHEW TAB] 81 mg PO DAILY #30 tab.chew 05/08/21 08/23/21 2 Days Ago Rx ~08/21/21 81 mg AtorvaSTATin [Lipitor] 40 mg PO QHS #30 tablet 05/08/21 08/23/21 2 Days Ago Rx ~08/21/21 40 mg Clopidogrel [Plavix] 75 mg PO DAILY #30 05/08/21 08/23/21 2 Days Ago Rx ~08/21/21 75 mg Furosemide [Lasix TAB] 40 mg PO BID #60 05/08/21 08/23/21 2 Days Ago Rx ~08/21/21 40 mg ISOSORBIDE MONOnitrate [Imdur ER] 30 mg PO QDAY #30 tablet 05/08/21 08/23/21 2 Days Ago Rx ~08/21/21 30 mg Potassium Chloride 10 meq PO BID #60 05/08/21 08/23/21 2 Days Ago Rx ~08/21/21 10 meq carvediloL [Coreg] 25 mg PO BID #60 tablet 05/08/21 08/23/21 2 Days Ago Rx ~08/21/21 25 mg hydrALAZINE [Apresoline TAB] 100 mg PO BID #60 tab 05/08/21 08/23/21 2 Days Ago Rx ~08/21/21 100 mg Potassium Chloride [K-Dur] 10 meq PO BID 08/23/21 08/23/21 2 Days Ago History ~08/21/21 10 meq Active Meds: Active Medications Acetaminophen (Acetaminophen 325 Mg Tab) 650 mg PO Q4H PRN PRN Reason: Pain MILD(1-3)/Fever >100.5/VILLALOBOS Aspirin (Aspirin Ec 325 Mg Tab) 325 mg PO QDAY TOMER Atorvastatin Calcium (Atorvastatin 40 Mg Tab) 40 mg PO QHS TOMER Carvedilol (Carvedilol 25 Mg Tab) 25 mg PO BID TOMER Last Admin: 08/23/21 09:32 Dose: 25 mg Clopidogrel Bisulfate (Clopidogrel 75 Mg Tab) 75 mg PO DAILY [facility] Last Admin: 08/23/21 10:01 Dose: 75 mg Heparin Sodium (Porcine) (Heparin 5,000 Unit/1 Ml Vial) 5,000 unit SUB-Q Q8HR [facility] Hydralazine HCl (Hydralazine 100 Mg Tab) 100 mg PO BID [facility] Last Admin: 08/23/21 09:32 Dose: 100 mg Sodium Chloride (Nacl 0.9% 500 Ml) 500 mls @ 50 mls/hr IV DIRECT [facility] Stop: 08/23/21 19:59 Last Admin: 08/23/21 10:55 Dose: 50 mls/hr Isosorbide Mononitrate (Isosorbide Mononitrate Er 30 Mg Tab) 30 mg PO QDAY [facility] Last Admin: 08/23/21 09:32 Dose: 30 mg Magnesium Hydroxide (Magnesium Hydroxide (Mom) Oral Liqd Udc) 30 ml PO Q4H PRN PRN Reason: Constipation Morphine Sulfate (Morphine 2 Mg/1 Ml Inj) 2 mg IV Q4H PRN PRN Reason: Pain, Moderate (4-6) Morphine Sulfate (Morphine 4 Mg/1 Ml Inj) 4 mg IV Q4H PRN PRN Reason: Pain , Severe (7-10) Morphine Sulfate (Morphine 4 Mg/1 Ml Inj) 2 mg IV Q5MIN PRN PRN Reason: Chest Pain unrelieved by NTG Nitroglycerin (Nitroglycerin 0.4 Mg Tab Subl) 0.4 mg SL Q5M PRN PRN Reason: Chest Pain Ondansetron HCl (Ondansetron 4 Mg/2 Ml Inj) 4 mg IV Q8H PRN PRN Reason: Nausea And Vomiting Sodium Chloride (Sodium Chloride 0.9% 10 Ml Flush Syringe) 10 ml IV BID [facility] Last Admin: 08/23/21 10:02 Dose: 10 ml Sodium Chloride (Sodium Chloride 0.9% 10 Ml Flush Syringe) 10 ml IV PRN PRN PRN Reason: LINE FLUSH Tramadol HCl (Tramadol 50 Mg Tab) 50 mg PO Q6H PRN PRN Reason: Pain, Moderate (4-6) Exam - Vital Signs Vital signs: Vital Signs Temp Pulse Resp BP Pulse Ox 98.1 F 98 H 20 175/131 99 08/22/21 20:56 08/22/21 20:56 08/22/21 20:56 08/22/21 20:56 08/22/21 20:56 Results - Lab Results 08/23/21 10:47 08/23/21 10:47 Most recent lab results Calcium 8.4 mg/dL (8.4-10.2) 08/23/21 10:47
--- NOTE | 2021-08-23 12:24 | Event Note ---
Date: 08/23/21 Patient seen this morning. Chest pain similar to pain he experienced prior to recent stent placement. Cardiology to perform heart catheterization today. Nephrology also evaluated patient for GREGG versus CKD.
[2021-08-23] MEDS ORDERED: ALUM-MAG HYDROXIDE-SIMETHICONE 200-200-20MG/5ML ORAL LIQD 30 ML ONE ×2 (12:34→12:37)
[2021-08-23] MEDS ORDERED: CLOPIDOGREL 75 MG TAB ONE (12:35)
--- NOTE | 2021-08-23 14:38 | Cardiac Catherization Report ---
DATE OF PROCEDURE: 08/23/2021 REFERRING PHYSICIAN: Hospitalist Service. INDICATIONS FOR PROCEDURE: The patient is a pleasant 56-year-old -[place] gentleman with a known severe ischemic cardiomyopathy, had multivessel PCI at [place] with surgical backup with LAD and circumflex, did well. This was last month. Here with recurrent chest pain, 10/10, minimally elevated troponin and he is referred for left heart catheterization. Risks, benefits and alternatives discussed at length prior to obtaining informed consent. He does have known chronic kidney disease. Creatinine is at baseline of 1.8. Risks of contrast-induced nephropathy also discussed. Risks, benefits and alternatives discussed prior to obtaining informed consent. PROCEDURE IN DETAIL: The patient was brought to the analyst microbiology lab in a postabsorptive state, prepped and draped in sterile fashion. Srikanth's test in right hand was normal. Then, 2 mL of 2% lidocaine used to anesthetize the right wrist. A standard 6-Citizen Of [place] hydrophilic sheath used to cannulate the right radial artery via modified Seldinger technique. All exchanges performed to exchange a J-tip guidewire. JL3.5 catheter was used to engage the left main. No dampening or ventricularization. Cineangiography performed in all projections. DATA: Aortic pressure is 110/70, LV pressure is 110, LVEDP of 15 mmHg. Left ventriculography reveals severe global left ventricular hypokinesis, estimated ejection fraction of 20% or so. Normal LVEDP. Well compensated cardiomyopathy. CORONARY ANATOMY: Left main without significant disease, bifurcates into left anterior descending and left circumflex. The left circumflex is moderate-sized vessel, courses AV groove. Stents are patent in the mid and distal left circumflex. LAD is a moderate-sized vessel, courses anterior interventricular groove, wraps around the apex. Multiple stents in the mid LAD are widely patent. There is an 80%-90% ulcerated stenosis in the distal segment of the mid LAD. This may be culprit. The right coronary is a moderate sized vessel, courses AV groove. Stents in the distal right coronary are widely patent. CARINA 3 flow. At this point, given the patient having active chest pain, question ulcerated mid LAD, we decided to proceed with PCI. Limited contrast was used as much as reasonably possible. EBU 3.5 guide used to engage the left main without difficulty. Abnormal ACT confirmed. The patient is already on dual antiplatelet therapy. We used a [place] wire to cross the lesion without difficulty. We used an Favio 2.75 x 15 drug-eluting stent across the lesion, deployed at 12 RUDDY for 30 seconds. Excellent angiographic result. Intravascular ultrasound was performed, multiple passes were made, which revealed a well-apposed, well-expanded stent. The mid LAD stents are also well-apposed and well-expanded. No other significant disease was noted. Excellent final angiographic result, no complications, no dissection. I limited the use of contrast as much as possible. A total of approximately 60 mL of Isovue was used. I directly supervised the administration of moderate sedation with fentanyl and Versed from 11:15-11:45 a.m. No immediate complications. CONCLUSIONS: 1. Chronic multivessel coronary artery disease with multiple prior PCIs, presents with an ulcerated 80%-90% mid LAD stenosis, status post successful IVUS-guided PCI, with placement of drug-eluting stent ([place] 2.75 x 15) with excellent final angiographic and ultrasonographic results. No complications. 2. Severe left ventricular dysfunction, estimated ejection fraction of 20%. 3. Normal LVEDP. These findings are consistent with, severe well compensated ischemic cardiomyopathy with culprit mid LAD, which has been addressed as aforementioned. Continue with dual antiplatelet therapy, goal-directed medical therapy. Results of procedure explained to the patient at length. All questions and concerns were addressed. We will continue to follow along. TID: [id number] RECEIPT: [id number] BRENNEN/TRAN
--- NOTE | 2021-08-23 16:43 | Consultation ---
History of Present Illness Consult date: 08/23/21 Requesting physician: SAMANTA MAC Consult reason: other (CAD with PCI) History of present illness: CC: Chest Pain This is a 56-year-old -[place]ian male, previously known to our practice, with past medical history of CAD, with recent Impella assisted PCI at [facility], on DAPT, hypertension, obesity who presented to [facility] today with complaints of left-sided chest pain. He states that approximately 3 weeks ago he underwent left heart cath with PCI and felt great for approximately 2 weeks. However, over the last week, and especially early this morning, he began "breathing funny "again and felt that something was sitting on his chest which prompted his arrival to the ED. He complained of epigastric discomfort as well as nausea and vomiting. He states that the pain is mostly left-sided, pressure, 10 out of 10, with radiation and "tingling "to his left arm. He states moving makes it worse. Nothing makes it better. He states he has been compliant with all medications. He admits associated dizziness, lightheadedness, nausea and vomiting. Denies syncope. Cardiology is consulted for h/o CAD with stent placement. Past History Past Medical History: acute [place], heart failure, hypertension, other (Tuberculosis) Past Surgical History: PTCA Social history: smoking (Former smoker) Family history: no significant family history Medications and Allergies Allergies Allergy/AdvReac Type Severity Reaction Status Date / Time Sulfa (Sulfonamide Allergy Anaphylaxis Verified 07/13/21 13:28 Antibiotics) Home Medications Medication Instructions Recorded Confirmed Last Taken Type Aspirin [Aspirin BABY CHEW TAB] 81 mg PO DAILY #30 tab.chew 05/08/21 08/23/21 2 Days Ago Rx ~08/21/21 81 mg AtorvaSTATin [Lipitor] 40 mg PO QHS #30 tablet 05/08/21 08/23/21 2 Days Ago Rx ~08/21/21 40 mg Clopidogrel [Plavix] 75 mg PO DAILY #30 05/08/21 08/23/21 2 Days Ago Rx ~08/21/21 75 mg Furosemide [Lasix TAB] 40 mg PO BID #60 05/08/21 08/23/21 2 Days Ago Rx ~08/21/21 40 mg ISOSORBIDE MONOnitrate [Imdur ER] 30 mg PO QDAY #30 tablet 05/08/21 08/23/21 2 Days Ago Rx ~08/21/21 30 mg Potassium Chloride 10 meq PO BID #60 05/08/21 08/23/21 2 Days Ago Rx ~08/21/21 10 meq carvediloL [Coreg] 25 mg PO BID #60 tablet 05/08/21 08/23/21 2 Days Ago Rx ~08/21/21 25 mg hydrALAZINE [Apresoline TAB] 100 mg PO BID #60 tab 05/08/21 08/23/21 2 Days Ago Rx ~08/21/21 100 mg Potassium Chloride [K-Dur] 10 meq PO BID 08/23/21 08/23/21 2 Days Ago History ~08/21/21 10 meq Active Meds: Active Medications Acetaminophen (Acetaminophen 325 Mg Tab) 650 mg PO Q4H PRN PRN Reason: Pain MILD(1-3)/Fever >100.5/VILLALOBOS Aspirin (Aspirin Ec 325 Mg Tab) 325 mg PO QDAY [facility] Atorvastatin Calcium (Atorvastatin 40 Mg Tab) 40 mg PO QHS [facility] Carvedilol (Carvedilol 25 Mg Tab) 25 mg PO BID [facility] Last Admin: 08/23/21 09:32 Dose: 25 mg Clopidogrel Bisulfate (Clopidogrel 75 Mg Tab) 75 mg PO DAILY [facility] Last Admin: 08/23/21 10:01 Dose: 75 mg Heparin Sodium (Porcine) (Heparin 5,000 Unit/1 Ml Vial) 5,000 unit SUB-Q Q8HR [facility] Hydralazine HCl (Hydralazine 100 Mg Tab) 100 mg PO BID [facility] Last Admin: 08/23/21 09:32 Dose: 100 mg Sodium Chloride (Nacl 0.9% 500 Ml) 500 mls @ 50 mls/hr IV DIRECT [facility] Stop: 08/23/21 19:59 Last Admin: 08/23/21 10:55 Dose: 50 mls/hr Isosorbide Mononitrate (Isosorbide Mononitrate Er 30 Mg Tab) 30 mg PO QDAY [facility] Last Admin: 08/23/21 09:32 Dose: 30 mg Magnesium Hydroxide (Magnesium Hydroxide (Mom) Oral Liqd Udc) 30 ml PO Q4H PRN PRN Reason: Constipation Morphine Sulfate (Morphine 2 Mg/1 Ml Inj) 2 mg IV Q4H PRN PRN Reason: Pain, Moderate (4-6) Morphine Sulfate (Morphine 4 Mg/1 Ml Inj) 4 mg IV Q4H PRN PRN Reason: Pain , Severe (7-10) Morphine Sulfate (Morphine 4 Mg/1 Ml Inj) 2 mg IV Q5MIN PRN PRN Reason: Chest Pain unrelieved by NTG Nitroglycerin (Nitroglycerin 0.4 Mg Tab Subl) 0.4 mg SL Q5M PRN PRN Reason: Chest Pain Ondansetron HCl (Ondansetron 4 Mg/2 Ml Inj) 4 mg IV Q8H PRN PRN Reason: Nausea And Vomiting Ranolazine (Ranolazine Er 500 Mg Tab 12hr) 500 mg PO BID [facility] Sodium Chloride (Sodium Chloride 0.9% 10 Ml Flush Syringe) 10 ml IV BID [facility] Last Admin: 08/23/21 10:02 Dose: 10 ml Sodium Chloride (Sodium Chloride 0.9% 10 Ml Flush Syringe) 10 ml IV PRN PRN PRN Reason: LINE FLUSH Tramadol HCl (Tramadol 50 Mg Tab) 50 mg PO Q6H PRN PRN Reason: Pain, Moderate (4-6) Review of Systems All systems: negative Constitutional: poor appetite, no fever, no chills Cardiovascular: chest pain, lightheadedness, shortness of breath, dyspnea on exertion, decreased exercise tolerance, no edema, no syncope, no leg edema Respiratory: cough Gastrointestinal: nausea, vomiting, diarrhea Musculoskeletal: arm numbness/tingling (Left arm tingling ) Physical Examination Vital Signs Temp Pulse Resp BP Pulse Ox 98.1 F 98 H 20 175/131 99 08/22/21 20:56 08/22/21 20:56 08/22/21 20:56 08/22/21 20:56 08/22/21 20:56 General appearance: no acute distress Neck: Positive: trachea midline Cardiac: Positive: Reg Rate and Rhythm, S1/S2 Lungs: Positive: clear to auscultation Neuro: Positive: Grossly Intact Abdomen: Positive: Soft Male genitourinary: Positive: deferred Skin: Negative: Rash, Ulceration Extremities: Present: upper extr. pulses (2+). Absent: edema Results 08/23/21 10:47 08/23/21 10:47 Cardiac Enzymes 08/22/21 Range/Units 21:39 AST 27 (5-40) units/L Coagulation 08/23/21 Range/Units 10:47 PT 16.0 H (12.2-14.9) Sec. INR 1.15 H (0.87-1.13) Lipids 08/22/21 Range/Units 21:39 Triglycerides 66 (2-149) mg/dL Cholesterol 171 (50-199) mg/dL HDL Cholesterol 38 L (40-59) mg/dL Cholesterol/HDL Ratio 4.50 % CBC 08/22/21 08/23/21 Range/Units 21:39 10:47 WBC 7.1 6.7 (4.5-11.0) K/mm3 RBC 4.22 4.07 (3.65-5.03) M/mm3 Hgb 13.0 12.6 (11.8-15.2) gm/dl Hct 40.4 38.6 (35.5-45.6) % Plt Count 225 209 (140-440) K/mm3 Lymph # (Auto) 1.6 1.0 L (1.2-5.4) K/mm3 [place] # (Auto) 0.5 0.5 (0.0-0.8) K/mm3 Eos # (Auto) 0.1 0.1 (0.0-0.4) K/mm3 Baso # (Auto) 0.0 0.0 (0.0-0.1) K/mm3 Comprehensive Metabolic Panel 08/22/21 08/23/21 Range/Units 21:39 10:47 Sodium 135 L 138 (137-145) mmol/L Potassium 3.7 3.3 L (3.6-5.0) mmol/L Chloride 102.8 104.2 (98-107) mmol/L Carbon Dioxide 19 L 23 (22-30) mmol/L BUN 28 H 24 H (9-20) mg/dL Creatinine 1.8 H 1.6 H (0.8-1.3) mg/dL Glucose 138 H 97 (75-100) mg/dL Calcium 8.8 8.4 (8.4-10.2) mg/dL AST 27 (5-40) units/L ALT 30 (7-56) units/L Alkaline Phosphatase 89 (35-129) units/L Total Protein 6.2 L (6.3-8.2) g/dL Albumin 3.1 L (3.9-5) g/dL - Imaging and Cardiology Echo: pending Cardiac cath: report reviewed EKG: image reviewed EKG interpretations - Telemetry EKG Rhythm: Sinus Rhythm - EKG Sinus rhythms and dysrhythmias: sinus rhythm Repolarization changes or abnormalities: nonspecific abnormality, ST segment, and/or T wave Assessment and Plan Assessment: Unstable angina Ischemic cardiomyopathy History of CAD with PCI GREGG Hypertension Chronic HFrEF Cardiographics: EKG 08/22/21 @2103 -sinus rhythm 93, with nonspecific T wave abnormalities lateral leads. No acute ischemia. CXR 08/22/21-no acute abnormality Echocardiogram: Pending [facility] 08/23/21: Conclusions: 1. Chronic multivessel coronary artery disease with multiple prior PCI's, presents with an ulcerated 80 to 90% mid LAD stenosis, status post successful IVUS guided PCI, with placement of drug-eluting stent with excellent final angiographic and ultrasonographic results. No complications. 2. Severe left ventricular dysfunction, estimated ejection fraction of 20%. 3. Normal LVEDP. Recommendations/plan: Patient presented with typical chest pain with concerning features Troponins mildly increased at 0.031 on presentation. Have now down trended. Given severity and nature of anginal symptoms, and with symptom return since recent PCI, left heart catheterization was elected performed. Patient is now status post [facility] with PCI to mid LAD. LifeVest ordered for patient. Initiate Ranexa 500 mg p.o. twice daily Continue dual antiplatelet therapy with aspirin 325 mg p.o. daily and Plavix 75 mg p.o. daily Continue GDMT: Aspirin, atorvastatin 40 mg, carvedilol 25 mg, Plavix 75 mg p.o., hydralazine 100 mg p.o. twice daily, Imdur 30 mg p.o. daily BMP and CBC in a.m. Thank you for this consultation, will follow along. Patient seen in conjunction with Dr. Subramanian who agrees with the assessment and management of this patient. - Patient Problems (1) CAD (coronary artery disease) Current Visit: Yes Status: Acute (2) Chest pain Current Visit: Yes Status: Acute (3) History of myocardial infarction Current Visit: Yes Status: Chronic (4) GREGG (acute kidney injury) Current Visit: No Status: Acute (5) Cardiomyopathy Current Visit: No Status: Chronic Qualifiers: Cardiomyopathy type: ischemic Qualified Code(s): I25.5 - Ischemic cardiomyopathy (6) HTN (hypertension) Current Visit: Yes Status: Chronic Qualifiers: Hypertension type: primary hypertension Qualified Code(s): I10 - Essential (primary) hypertension (7) Hyperlipemia, mixed Current Visit: No Status: Chronic (8) Stented coronary artery Current Visit: Yes Status: Chronic
[2021-08-23] MEDS: RANOLAZINE ER 500 MG TAB 12HR PO SCH ×2 (19:22→21:17)
[2021-08-23] MEDS: HEPARIN 5,000 UNIT/1 ML VIAL SUB-Q SCH ×2 (19:23→21:17)
[2021-08-24] MEDS: HEPARIN 5,000 UNIT/1 ML VIAL SUB-Q SCH ×2 (07:46→15:39)
--- NOTE | 2021-08-24 07:58 | Progress Note ---
History Interval history: No acute events overnight. Patient reports resolution of chest pain. Did have one episode of shortness of breath while lying flat. No complaints at this time. Hospitalist Physical - Physical exam Narrative exam: GENERAL: Well-developed well-nourished. In no acute distress. HEENT: Normocephalic. Atraumatic. NECK: Supple. CHEST/LUNGS: CTAB on room air HEART/CARDIOVASCULAR: RRR. + Systolic murmur ABDOMEN: +BS. NT/ND SKIN: No rashes noted. NEURO: No focal motor deficit. Follows all commands. MUSCULOSKELETAL: No joint effusion EXTREMITIES: No cyanosis, clubbing or edema. Right wrist without hematoma or bruit. PSYCH: Cooperative. - Constitutional Vitals: Temp Pulse Resp BP Pulse Ox 98.7 F 75 20 113/77 97 08/24/21 03:50 08/24/21 03:50 08/24/21 04:42 08/24/21 03:50 08/24/21 03:50 General appearance: Present: no acute distress HEART Score - HEART Score EKG: Normal Age: 45-65 Risk factors: > 3 risk factors or hx of atherosclerotic disease Troponin: Troponin T 0.017 ng/mL (0.00-0.029) 08/23/21 08:32 Troponin: 1-3x normal limit Results - Labs CBC & Chem 7: 08/24/21 08:07 08/24/21 08:07 Labs: Laboratory Last Values WBC 6.7 K/mm3 (4.5-11.0) 08/23/21 10:47 RBC 4.07 M/mm3 (3.65-5.03) 08/23/21 10:47 Hgb 12.6 gm/dl (11.8-15.2) 08/23/21 10:47 Hct 38.6 % (35.5-45.6) 08/23/21 10:47 MCV 95 fl (84-94) H 08/23/21 10:47 MCH 31 pg (28-32) 08/23/21 10:47 MCHC 33 % (32-34) 08/23/21 10:47 RDW 17.0 % (13.2-15.2) H 08/23/21 10:47 Plt Count 209 K/mm3 (140-440) 08/23/21 10:47 Lymph % (Auto) 14.8 % (13.4-35.0) 08/23/21 10:47 [place] % (Auto) 8.0 % (0.0-7.3) H 08/23/21 10:47 Eos % (Auto) 0.9 % (0.0-4.3) 08/23/21 10:47 Baso % (Auto) 0.5 % (0.0-1.8) 08/23/21 10:47 Lymph # (Auto) 1.0 K/mm3 (1.2-5.4) L 08/23/21 10:47 [place] # (Auto) 0.5 K/mm3 (0.0-0.8) 08/23/21 10:47 Eos # (Auto) 0.1 K/mm3 (0.0-0.4) 08/23/21 10:47 Baso # (Auto) 0.0 K/mm3 (0.0-0.1) 08/23/21 10:47 Seg Neutrophils % 75.8 % (40.0-70.0) H 08/23/21 10:47 Seg Neutrophils # 5.1 K/mm3 (1.8-7.7) 08/23/21 10:47 PT 16.0 Sec. (12.2-14.9) H 08/23/21 10:47 INR 1.15 (0.87-1.13) H 08/23/21 10:47 Sodium 138 mmol/L (137-145) 08/23/21 10:47 Potassium 3.3 mmol/L (3.6-5.0) L 08/23/21 10:47 Chloride 104.2 mmol/L (98-107) 08/23/21 10:47 Carbon Dioxide 23 mmol/L (22-30) 08/23/21 10:47 Anion Gap 14 mmol/L 08/23/21 10:47 BUN 24 mg/dL (9-20) H 08/23/21 10:47 Creatinine 1.6 mg/dL (0.8-1.3) H 08/23/21 10:47 Estimated GFR 55 ml/min 08/23/21 10:47 BUN/Creatinine Ratio 15 % 08/23/21 10:47 Glucose 97 mg/dL (75-100) 08/23/21 10:47 POC Glucose 89 mg/dL (70-105) 08/23/21 10:24 Calcium 8.4 mg/dL (8.4-10.2) 08/23/21 10:47 Total Bilirubin 2.50 mg/dL (0.1-1.2) H 08/22/21 21:39 AST 27 units/L (5-40) 08/22/21 21:39 ALT 30 units/L (7-56) 08/22/21 21:39 Alkaline Phosphatase 89 units/L (35-129) 08/22/21 21:39 Troponin T 0.017 ng/mL (0.00-0.029) 08/23/21 08:32 Total Protein 6.2 g/dL (6.3-8.2) L 08/22/21 21:39 Albumin 3.1 g/dL (3.9-5) L 08/22/21 21:39 Albumin/Globulin Ratio 1.0 % 08/22/21 21:39 Triglycerides 66 mg/dL (2-149) 08/22/21 21:39 Cholesterol 171 mg/dL (50-199) 08/22/21 21:39 LDL Cholesterol Direct 126 mg/dL (50-130) 08/22/21 21:39 HDL Cholesterol 38 mg/dL (40-59) L 08/22/21 21:39 Cholesterol/HDL Ratio 4.50 % 08/22/21 21:39 Blood Type A POSITIVE 08/23/21 10:50 Antibody Screen Negative 08/23/21 10:50 Joseph/IV: Voiding Method Urinal Active Medications - Current Medications Current Medications: Generic Name Dose Route Start Last Admin Trade Name Freq PRN Reason Stop Dose Admin Acetaminophen 650 mg 08/23/21 02:14 Acetaminophen 325 Mg Tab PO Q4H PRN Pain MILD(1-3)/Fever >100.5/VILLALOBOS Aspirin 325 mg 08/24/21 10:00 Aspirin Ec 325 Mg Tab PO QDAY [facility] Atorvastatin Calcium 40 mg 08/23/21 22:00 08/23/21 21:17 Atorvastatin 40 Mg Tab PO 40 mg QHS TOMER Administration Carvedilol 25 mg 08/23/21 10:00 08/23/21 21:17 Carvedilol 25 Mg Tab PO 25 mg BID TOMER Administration Clopidogrel Bisulfate 75 mg 08/23/21 10:00 08/23/21 10:01 Clopidogrel 75 Mg Tab PO 75 mg DAILY TOMER Administration Heparin Sodium (Porcine) 5,000 unit 08/23/21 14:00 08/24/21 07:46 Heparin 5,000 Unit/1 Ml Vial SUB-Q Not Given Q8HR [facility] Hydralazine HCl 100 mg 08/23/21 10:00 08/23/21 21:16 Hydralazine 100 Mg Tab PO 100 mg BID TOMER Administration Isosorbide Mononitrate 30 mg 08/23/21 10:00 08/23/21 09:32 Isosorbide Mononitrate Er 30 Mg Tab PO 30 mg QDAY [facility] Administration Magnesium Hydroxide 30 ml 08/23/21 02:14 Magnesium Hydroxide (Mom) Oral Liqd Udc PO Q4H PRN Constipation Morphine Sulfate 2 mg 08/23/21 02:14 08/24/21 04:12 Morphine 2 Mg/1 Ml Inj IV 2 mg Q4H PRN Administration Pain, Moderate (4-6) Morphine Sulfate 4 mg 08/23/21 02:14 Morphine 4 Mg/1 Ml Inj IV Q4H PRN Pain , Severe (7-10) Morphine Sulfate 2 mg 08/23/21 02:14 Morphine 4 Mg/1 Ml Inj IV Q5MIN PRN Chest Pain unrelieved by NTG Nitroglycerin 0.4 mg 08/23/21 02:14 Nitroglycerin 0.4 Mg Tab Subl SL Q5M PRN Chest Pain Ondansetron HCl 4 mg 08/23/21 02:14 Ondansetron 4 Mg/2 Ml Inj IV Q8H PRN Nausea And Vomiting Ranolazine 500 mg 08/23/21 14:00 08/23/21 21:17 Ranolazine Er 500 Mg Tab 12hr PO 500 mg BID TOMER Administration Sodium Chloride 10 ml 08/23/21 10:00 08/23/21 21:18 Sodium Chloride 0.9% 10 Ml Flush Syringe IV 10 ml BID TOMER Administration Sodium Chloride 10 ml 08/23/21 02:14 Sodium Chloride 0.9% 10 Ml Flush Syringe IV PRN PRN LINE FLUSH Tramadol HCl 50 mg 08/23/21 02:14 08/23/21 21:17 Tramadol 50 Mg Tab PO 50 mg Q6H PRN Administration Pain, Moderate (4-6)
[2021-08-24 08:29] LABS: Basophils % (Auto) 0.3 % (0.0-1.8); Eosinophils % (Auto) 0.4 % (0.0-4.3); Hematocrit 39.5 % (35.5-45.6); Hemoglobin 12.9 gm/dl (11.8-15.2); Lymphocytes # (Auto) 0.9 K/mm3 (1.2-5.4); Lymphocytes % (Auto) 11.2 % (13.4-35.0); Mean Corpuscular HGB Conc 33 % (32-34); Mean Corpuscular Volume 96 fl (84-94); Monocytes # (Auto) 0.8 K/mm3 (0.0-0.8); Monocytes % (Auto) 9.4 % (0.0-7.3); Platelet Count 219 K/mm3 (140-440); Red Blood Count 4.13 M/mm3 (3.65-5.03); Red Cell Distribution Width 17.2 % (13.2-15.2)
[2021-08-24 08:50] LABS: Calcium 8.2 mg/dL (8.4-10.2)
[2021-08-24 08:58] VITALS: BP 132/97
[2021-08-24] MEDS ORDERED: ASPIRIN EC 325 MG TAB PO SCH (10:00)
[2021-08-24] MEDS: CLOPIDOGREL 75 MG TAB PO SCH (10:36)
[2021-08-24] MEDS: RANOLAZINE ER 500 MG TAB 12HR PO SCH (10:36)
[2021-08-24] MEDS: hydrALAZINE 100 MG TAB PO SCH (10:37)
[2021-08-24] MEDS: carvediloL 25 MG TAB PO SCH (10:37)
--- NOTE | 2021-08-24 11:49 | Discharge Summary ---
Providers - Providers Date of Admission: 08/23/21 02:15 Date of discharge: 08/24/21 Attending physician: RYLEY BANG MD 08/23/21 Consult to Cardiac Rehabilitation [CONS] Routine Reason For Exam: Phase I 08/23/21 02:14 Consult to Physician [CONS] Routine Comment: Consulting Provider: YARELIS VILLARREAL Physician Instructions: Reason For Exam: Renal insufficiency 08/23/21 02:15 Consult to Cardiology [CONS] Routine Consulting Provider: JESU QUILES Reason For Exam: Chest pain. H/O CAD with stent placement Primary care physician: JOSEPHINE MONROE Hospitalization Condition: Stable Disposition: 30 STILL A PATIENT Exam - Physical Exam Narrative exam: GENERAL: Well-developed well-nourished. In no acute distress. HEENT: Normocephalic. Atraumatic. NECK: Supple. CHEST/LUNGS: CTAB on room air HEART/CARDIOVASCULAR: RRR. + Systolic murmur ABDOMEN: +BS. NT/ND SKIN: No rashes noted. NEURO: No focal motor deficit. Follows all commands. MUSCULOSKELETAL: No joint effusion EXTREMITIES: No cyanosis, clubbing or edema. Right wrist without hematoma or bruit. PSYCH: Cooperative. - Constitutional Vitals: Temp Pulse Resp BP Pulse Ox 98.9 F 79 18 132/97 100 08/24/21 08:00 08/24/21 08:00 08/24/21 08:00 08/24/21 08:00 08/24/21 08:00 Plan Care Plan Goals: Please follow-up with your tourist escort at your earliest convenience. Please start taking all medications as prescribed. If you experience any recurrence of your symptoms, please do not hesitate to return to the ER. Please restart wearing your LifeVest. Follow up with: JOSEPHINE MONROE MD [Primary Care Provider] - 7 Days Prescriptions: AtorvaSTATin [Lipitor] 40 mg PO QHS #30 tablet hydrALAZINE [Apresoline TAB] 100 mg PO BID 30 Days #60 tab carvediloL [Coreg] 25 mg PO BID 30 Days #60 tablet Aspirin EC [Ecotrin] 325 mg PO QDAY 30 Days #30 tablet ISOSORBIDE MONOnitrate [Imdur ER] 30 mg PO QDAY 30 Days #30 tablet Nitroglycerin [Nitrostat] 0.4 mg SL Q5M PRN 30 Days #30 tablet PRN Reason: Chest Pain Clopidogrel [Plavix] 75 mg PO DAILY 30 Days #30 tab Ranolazine ER [Ranexa ER] 500 mg PO BID 30 Days #60 tablet
--- NOTE | 2021-08-24 14:54 | Progress Note ---
Assessment and Plan This is a 56-year-old -[place]ian male, previously known to our practice, with past medical history of CAD, with recent Impella assisted PCI at [facility], on DAPT, hypertension, obesity who presented to [facility] today with complaints of left-sided chest pain Unstable angina Ischemic cardiomyopathy History of CAD with PCI GREGG Hypertension Chronic HFrEF [facility] 08/23/21: Conclusions: 1. Chronic multivessel coronary artery disease with multiple prior PCI's, presents with an ulcerated 80 to 90% mid LAD stenosis, status post successful IVUS guided PCI, with placement of drug-eluting stent with excellent final angiographic and ultrasonographic results. No complications. Severe left ventricular dysfunction, estimated ejection fraction of 20%. Normal LVEDP. Echo 08/23/2021-EF 15%. Mild diastolic dysfunction is present impaired relaxation pattern. Mild concentric LVH. Moderate to severe tricuspid regurgitation. Severe pulmonary hypertension Plan: Patient is status post [facility] with PCI to mid LAD. Patient remains chest pain- free Patient has LifeVest at home however is refusing to wear it at this time Continue Ranexa 500 mg p.o. twice daily Continue dual antiplatelet therapy with aspirin 325 mg p.o. daily and Plavix 75 mg p.o. daily Continue GDMT: Aspirin, atorvastatin 40 mg, carvedilol 25 mg, Plavix 75 mg p.o., hydralazine 100 mg p.o. twice daily, Imdur 30 mg p.o. daily Patient cardiac status otherwise stable for discharge Patient has a follow-up appointment with Dr. Huston, [facility] heart specialists, on 09/15/2021 8:30 AM and reviewed the location. Phone #[phone] Patient seen in conjunction with Dr. Subramanian who agrees with the assessment and management of this patient. - Patient Problems (1) CAD (coronary artery disease) Current Visit: Yes Status: Acute (2) Chest pain Current Visit: Yes Status: Acute (3) HTN (hypertension) Current Visit: Yes Status: Chronic Qualifiers: Hypertension type: primary hypertension Qualified Code(s): I10 - Essential (primary) hypertension (4) History of myocardial infarction Current Visit: Yes Status: Chronic (5) Stented coronary artery Current Visit: Yes Status: Chronic (6) Cardiomyopathy Current Visit: No Status: Chronic Qualifiers: Cardiomyopathy type: ischemic Qualified Code(s): I25.5 - Ischemic cardiomyopathy (7) Hyperlipemia, mixed Current Visit: No Status: Chronic (8) Medical non-compliance Current Visit: No Status: Chronic (9) Moderate pulmonary hypertension Current Visit: No Status: Chronic Subjective Date of service: 08/24/21 Principal diagnosis: Chest Interval history: Patient resting in bed in no acute distress. Patient denies any complaints of chest pain Patient sinus 70s to 80s on monitor with no event Objective Vital Signs Temp Pulse Pulse Resp BP Pulse Ox 08/24/21 11:00 92 H 20 100 08/24/21 08:00 98.9 F 79 18 132/97 100 08/24/21 04:42 20 08/24/21 04:12 20 08/24/21 03:50 98.7 F 75 18 113/77 97 08/24/21 01:00 67 08/23/21 23:33 97.5 F L 59 L 14 100/64 100 08/23/21 23:00 92 H 20 100 08/23/21 21:17 84 20 114/71 08/23/21 19:39 97.5 F L 84 14 114/71 100 08/23/21 17:31 97.9 F 08/23/21 17:27 77 18 129/94 100 08/23/21 16:31 97.6 F 61 18 129/85 99 08/23/21 15:09 76 18 141/91 100 - Physical Examination General: No Apparent Distress HEENT: Positive: Normocephaly Neck: Positive: trachea midline Cardiac: Positive: Reg Rate and Rhythm Lungs: Positive: Normal Breath Sounds Neuro: Positive: Grossly Intact Abdomen: Positive: Soft Skin: Negative: Rash, Ulceration Incision: Cardiac Cath Site (No signs of bleeding or hematoma. Pulses intact patient denies any complaints at site) Extremities: Present: upper extr. pulses (2+). Absent: edema - Labs and Meds CBC 08/24/21 Range/Units 08:07 WBC 8.1 (4.5-11.0) K/mm3 RBC 4.13 (3.65-5.03) M/mm3 Hgb 12.9 (11.8-15.2) gm/dl Hct 39.5 (35.5-45.6) % Plt Count 219 (140-440) K/mm3 Lymph # (Auto) 0.9 L (1.2-5.4) K/mm3 [place] # (Auto) 0.8 (0.0-0.8) K/mm3 Eos # (Auto) 0.0 (0.0-0.4) K/mm3 Baso # (Auto) 0.0 (0.0-0.1) K/mm3 Comprehensive Metabolic Panel 08/24/21 Range/Units 08:07 Sodium 138 (137-145) mmol/L Potassium 3.7 (3.6-5.0) mmol/L Chloride 104.1 (98-107) mmol/L Carbon Dioxide 21 L (22-30) mmol/L BUN 25 H (9-20) mg/dL Creatinine 2.1 H (0.8-1.3) mg/dL Glucose 94 (75-100) mg/dL Calcium 8.2 L (8.4-10.2) mg/dL - Imaging and Cardiology EKG: image reviewed Echo: pending Cardiac cath: report reviewed - Telemetry EKG Rhythm: Sinus Rhythm - EKG Sinus rhythms and dysrhythmias: sinus rhythm Repolarization changes or abnormalities: nonspecific abnormality, ST segment, and/or T wave
--- NOTE | 2021-08-24 20:11 | Electrocardiograph Report ---
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
--- NOTE | 2021-08-24 20:18 | Electrocardiograph Report ---
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
--- NOTE | 2021-08-24 20:24 | Electrocardiograph Report ---
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
--- NOTE | 2021-08-24 20:40 | Electrocardiograph Report ---
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
== END 2021-08-24 16:16 | disposition home or self-care (01) | DRG 247 ==
LOC: ED 20:52 → 4A 08-23 02:15
PROVIDERS: ADMIT Internal Medicine Geriatric Medicine; ATTEND Student in an Organized Health Care Education/Training Program
PROC: 4A023N7 Measurement of Cardiac Sampling and Pressure, Left Heart, Percutaneous Approach (ICD-10-PCS; principal; 2021-08-23)
PROC: 027034Z Dilation of Coronary Artery, One Artery with Drug-eluting Intraluminal Device, Percutaneous Approach (ICD-10-PCS; 2021-08-23)
PROC: B2111ZZ Fluoroscopy of Multiple Coronary Arteries using Low Osmolar Contrast (ICD-10-PCS; 2021-08-23)
PROC: B2151ZZ Fluoroscopy of Left Heart using Low Osmolar Contrast (ICD-10-PCS; 2021-08-23)
DX: I25.110 Atherosclerotic heart disease of native coronary artery with unstable angina pectoris (principal); N17.9 Acute kidney failure, unspecified; I50.22 Chronic systolic (congestive) heart failure; Z95.5 Presence of coronary angioplasty implant and graft; Z88.2 Allergy status to sulfonamides; I25.2 Old myocardial infarction; I11.0 Hypertensive heart disease with heart failure; Z87.891 Personal history of nicotine dependence; I25.5 Ischemic cardiomyopathy
CPT/HCPCS: 36415; 71046; 80048; 80053; 80061; 82962; 84484; 85025; 85610; 86850; 86900; 86901; 92928; 92978; 93005; 93306; 93458; G0378; J1815; J3490; C1753; C1769; C1874; C1887; C1894; C8929; C9600; J0360; J1200; J1644; J2250; J2270; J3010; J7040; Q9967

== ENCOUNTER 2021-10-08 02:13 | Inpatient (IN) | payer SELFPAY ==
[2021-10-08] MEDS ORDERED: ASPIRIN 325 MG TAB PO ONE (04:55)
--- NOTE | 2021-10-08 05:38 | XRay Report ---
CHEST 1 VIEW INDICATION / CLINICAL INFORMATION: chest pain. COMPARISON: Chest x-ray 08/22/2021 FINDINGS: SUPPORT DEVICES: None. HEART / MEDIASTINUM: Moderate cardiomegaly is stable. LUNGS / PLEURA: Lungs are clear. Minimal dependent right pleural fluid present. BONES: No significant osseous abnormality. ADDITIONAL FINDINGS: No significant additional findings. IMPRESSION: 1. Small dependent right pleural effusion. 2. Stable cardiomegaly. Signer Name: Derian Mercado II, MD Signed: 10/08/2021 5:33 AM Workstation Name: [id number]
[2021-10-08] MEDS ORDERED: ACETAMINOPHEN 325 MG TAB PO ONE (05:40)
[2021-10-08 05:41] LABS: INR 0.97 (0.87-1.13)
[2021-10-08 05:55] LABS: Calcium 8.9 mg/dL (8.4-10.2)
[2021-10-08] MEDS ORDERED: FUROSEMIDE 40 MG/4 ML INJ IV ONE (06:25)
[2021-10-08] MEDS ORDERED: NITROGLYCERIN 0.4 MG TAB SUBL SL PRN ×3 (06:25→10:27)
[2021-10-08] MEDS ORDERED: METOCLOPRAMIDE 10 MG/2 ML INJ IV ONE (06:25)
[2021-10-08] MEDS ORDERED: hydrALAZINE 20 MG/1 ML INJ IV ONE (06:26)
--- NOTE | 2021-10-08 06:27 | Emergency Department Report ---
ED Chest Pain HPI - General Chief Complaint: Chest Pain Stated Complaint: RACING HEART, CP, SOB, NAUSEA Time Seen by Provider: 10/08/21 06:08 Source: patient, RN notes reviewed, old records reviewed Mode of arrival: Ambulatory Limitations: Physical Limitation - History of Present Illness Initial Comments: The patient was evaluated in the emergency department for symptoms described in the history of present illness. He/she was evaluated in the context of the global COVID-19 pandemic, which necessitated consideration that the patient might be at risk for infection with the virus that causes COVID-19. Institutional protocols and algorithms that pertain to the evaluation of patients at risk for COVID-19 are in a state of rapid change based on info rmation released by regulatory bodies including the CDC and federal and state organizations. These policies and algorithms were followed during the patient's care in the emergency department. Please note that these policies, procedures and recommendations changed on a rapid basis. Past medical history: CAD, [place] known history of ischemic cardiomyopathy, chronic multivessel coronary artery disease, with multiple prior PCI's, history of ulcerated mid LAD stenosis, with drug-eluting stent, known ejection fraction of 20%. Patient's is a 56-year-old gentleman presenting to the ER today with complaints of left-sided chest pain, which is exertional. The chest pain worsens with exertion. Positive nausea. No diaphoresis. Positive vomiting. Mild headache associated with vomiting. No abdominal pain. No hematemesis of bright red blood per rectum. He endorses compliance with his aspirin, Plavix, and Ranexa. Reports this is similar to prior episodes of angina. MD Complaint: chest pain -: Gradual, hour(s) Pain Location: substernal, left chest Pain Radiation: none Severity scale (0 -10): 6 Quality: aching Consistency: intermittent Improves With: rest Worsens With: exertion re: nausea, vomting Aspirin use within the Past 7 Days: (1) Yes - Related Data On Oral Contraceptives: No Previous Rx's Medication Instructions Recorded Last Taken Type Furosemide [Lasix TAB] 40 mg PO BID #60 05/08/21 2 Days Ago Rx ~08/21/21 40 mg Potassium Chloride 10 meq PO BID #60 05/08/21 2 Days Ago Rx ~08/21/21 10 meq Aspirin EC [Ecotrin] 325 mg PO QDAY 30 Days #30 tablet 08/24/21 Unknown Rx AtorvaSTATin [Lipitor] 40 mg PO QHS #30 tablet 08/24/21 Unknown Rx Clopidogrel [Plavix] 75 mg PO DAILY 30 Days #30 tab 08/24/21 Unknown Rx ISOSORBIDE MONOnitrate [Imdur ER] 30 mg PO QDAY 30 Days #30 tablet 08/24/21 Unknown Rx Nitroglycerin [Nitrostat] 0.4 mg SL Q5M PRN 30 Days #30 08/24/21 Unknown Rx tablet Ranolazine ER [Ranexa ER] 500 mg PO BID 30 Days #60 tablet 08/24/21 Unknown Rx carvediloL [Coreg] 25 mg PO BID 30 Days #60 tablet 08/24/21 Unknown Rx hydrALAZINE [Apresoline TAB] 100 mg PO BID 30 Days #60 tab 08/24/21 Unknown Rx Allergies Allergy/AdvReac Type Severity Reaction Status Date / Time Sulfa (Sulfonamide Allergy Anaphylaxis Verified 07/13/21 13:28 Antibiotics) Heart Score - HEART Score History: Highly suspicious EKG: Non-specific Age: 45-65 Risk factors: > 3 risk factors or hx of atherosclerotic disease Troponin: < normal limit HEART Score: 6 - EKG Read Time Time EKG Completed: 06:00 EKG Read Time: 06:00 - Critical Actions Critical Actions: 4-6 pts:12-16.6% risk of adverse cardiac event. Should be admitted ED Review of Systems ROS: Stated complaint: RACING HEART, CP, SOB, NAUSEA Other details as noted in HPI Constitutional: malaise. denies: fever Eyes: denies: eye discharge Respiratory: shortness of breath Cardiovascular: chest pain, dyspnea on exertion, edema Gastrointestinal: denies: hematemesis, melena, hematochezia Neurological: headache, weakness ED Past Medical Hx - Past Medical History Hx Hypertension: Yes Hx Heart Attack/AMI: Yes Hx Congestive Heart Failure: Yes Hx Diabetes: No Hx Deep Vein Thrombosis: No Hx Arthritis: Yes Hx Asthma: No Hx COPD: No Hx Tuberculosis: Yes Hx HIV: No - Surgical History Hx Coronary Stent: Yes Hx Pacemaker: No Hx Internal Defibrillator: No - Social History Smoking Status: Former Smoker - Medications Home Medications: Home Medications Medication Instructions Recorded Confirmed Last Taken Type Furosemide [Lasix TAB] 40 mg PO BID #60 05/08/21 08/23/21 2 Days Ago Rx ~08/21/21 40 mg Potassium Chloride 10 meq PO BID #60 05/08/21 08/23/21 2 Days Ago Rx ~08/21/21 10 meq Aspirin EC [Ecotrin] 325 mg PO QDAY 30 Days #30 tablet 08/24/21 Unknown Rx AtorvaSTATin [Lipitor] 40 mg PO QHS #30 tablet 08/24/21 Unknown Rx Clopidogrel [Plavix] 75 mg PO DAILY 30 Days #30 tab 08/24/21 Unknown Rx ISOSORBIDE MONOnitrate [Imdur ER] 30 mg PO QDAY 30 Days #30 tablet 08/24/21 Unknown Rx Nitroglycerin [Nitrostat] 0.4 mg SL Q5M PRN 30 Days #30 08/24/21 Unknown Rx tablet Ranolazine ER [Ranexa ER] 500 mg PO BID 30 Days #60 tablet 08/24/21 Unknown Rx carvediloL [Coreg] 25 mg PO BID 30 Days #60 tablet 08/24/21 Unknown Rx hydrALAZINE [Apresoline TAB] 100 mg PO BID 30 Days #60 tab 08/24/21 Unknown Rx ED Physical Exam - General Limitations: No Limitations General appearance: alert, in no apparent distress - Head Head exam: Present: atraumatic, normocephalic - Eye Eye exam: Present: normal appearance, EOMI. Absent: nystagmus - ENT ENT exam: Present: normal exam, normal orophraynx, mucous membranes moist, normal external ear exam - Neck Neck exam: Present: normal inspection, full ROM. Absent: tenderness, meningismus - Respiratory Respiratory exam: Present: normal lung sounds bilaterally. Absent: respiratory distress, wheezes, rhonchi, stridor - Cardiovascular Cardiovascular Exam: Present: regular rate, normal rhythm, normal heart sounds, JVD. Absent: bradycardia, tachycardia, irregular rhythm, systolic murmur, diastolic murmur, rubs, gallop - GI/Abdominal GI/Abdominal exam: Present: soft. Absent: distended, tenderness, guarding, rebound, rigid, pulsatile mass - Rectal Rectal exam: Present: deferred - Extremities Exam Extremities exam: Present: normal inspection, full ROM, pedal edema, other (2+ pulses noted in the bilateral upper and lower extremities. There is no palpable cord. negative Homans sign. Muscular compartments are soft. The pelvis is stable.). Absent: calf tenderness - Back Exam Back exam: Present: normal inspection. Absent: tenderness, CVA tenderness (R), CVA tenderness (L), paraspinal tenderness, vertebral tenderness - Neurological Exam Neurological exam: Present: alert, other (2+ pulses noted in the bilateral upper and lower extremities. There is no palpable cord. negative Homans sign. Muscular compartments are soft. The pelvis is stable.). Absent: motor sensory deficit - Psychiatric Psychiatric exam: Present: normal affect, normal mood - Skin Skin exam: Present: warm, dry, intact, normal color. Absent: rash ED Course Vital Signs 10/08/21 02:17 Temperature 97.9 F Pulse Rate 95 H Respiratory 16 Rate Blood Pressure 172/129 [Left] O2 Sat by Pulse 99 Oximetry - Reevaluation(s) Reevaluation #1: 10/08/21 07:49 Differential diagnosis, including but not limited to: Acute coronary syndrome, arrhythmia, congestive heart failure, hypertensive urgency, pleural effusion, chronic renal insufficiency Assessment and plan: 56-year-old gentleman complaining of concerning chest pain, recent cardiac catheterization is reviewed and appreciated, he does report that he is taking his aspirin, Plavix and Ranexa. He is moderate to high risk for major adverse cardiac event as per heart score. He has pulmonary effusion, as well as lower extremity edema, in context with hypertensive urgency. Have recommended admission to the medical service for blood pressure control, diuresis, and concerning chest pain. His EKG is unchanged from prior, his troponin is negative x1, he does not require an emergent cardiology consult right now. He is agreeable to admission and hospitalization. Hospital physician, Dr. Giselle Cruz to admit to [facility] CARINA score - Carina Score Age > 65: (0) No Aspirin use within the Past 7 Days: (1) Yes 3 or more CAD Risk Factors: (1) Yes 2 or more Angina events in past 24 hrs: (1) Yes Known CAD with more than 50% Stenosis: (1) Yes Elevated Cardiac Markers: (1) Yes ST Deviation Greater than 0.5mm: (1) Yes CARINA Score: 6 ED Medical Decision Making - Lab Data Result diagrams: 10/08/21 06:08 10/08/21 05:11 Vital Signs 10/08/21 02:17 Temperature 97.9 F Pulse Rate 95 H Respiratory 16 Rate Blood Pressure 172/129 [Left] O2 Sat by Pulse 99 Oximetry Lab Results 10/08/21 10/08/21 10/08/21 Range/Units 05:11 05:11 06:08 WBC 7.5 (4.5-11.0) K/mm3 RBC 4.33 (3.65-5.03) M/mm3 Hgb 12.8 (11.8-15.2) gm/dl Hct 40.8 (35.5-45.6) % MCV 94 (84-94) fl MCH 30 (28-32) pg MCHC 31 L (32-34) % RDW 16.7 H (13.2-15.2) % Plt Count 243 (140-440) K/mm3 Lymph % (Auto) Political Analyst [place] % (Auto) Political Analyst Eos % (Auto) Political Analyst Baso % (Auto) Political Analyst Lymph # (Auto) Political Analyst [place] # (Auto) Political Analyst Eos # (Auto) Political Analyst Baso # (Auto) Political Analyst Seg Neutrophils % Political Analyst Seg Neutrophils # Political Analyst PT 14.0 (12.2-14.9) Sec. INR 0.97 (0.87-1.13) Sodium 142 (137-145) mmol/L Potassium 3.4 L (3.6-5.0) mmol/L Chloride 106.6 (98-107) mmol/L Carbon Dioxide 19 L (22-30) mmol/L Anion Gap 20 mmol/L BUN 33 H (9-20) mg/dL Creatinine 2.1 H (0.8-1.3) mg/dL Estimated GFR 40 ml/min BUN/Creatinine Ratio 16 % Glucose 98 (75-100) mg/dL Calcium 8.9 (8.4-10.2) mg/dL Troponin T 0.019 (0.00-0.029) ng/mL - EKG Data -: EKG Interpreted by Md EKG shows normal: sinus rhythm Rate: normal - EKG Data 10/08/21 07:49 The EKG is interpreted at 02: 24 Sinus rhythm, 98 bpm. Normal axis, QTC 5 2 1 ms. Motion artifact. This is not a STEMI. This is an abnormal EKG. It appears to be grossly unchanged when compared to prior EKG from August 2021. - Radiology Data Radiology results: pending, report reviewed, image reviewed Critical care attestation.: If time is entered above; I have spent that time in minutes in the direct care of this critically ill patient, excluding procedure time. ED Disposition Clinical Impression: Acute chest pain, Renal insufficiency, Hypertensive urgency, CHF (congestive heart failure) Disposition: 09 ADMITTED INPATIENT Is pt being admited?: Yes Does the pt Need Aspirin: No Condition: Good Instructions: Chest Pain (ED)
[2021-10-08 06:49] LABS: Hematocrit 40.8 % (35.5-45.6); Hemoglobin 12.8 gm/dl (11.8-15.2); Mean Corpuscular HGB Conc 31 % (32-34); Mean Corpuscular Volume 94 fl (84-94); Platelet Count 243 K/mm3 (140-440); Red Blood Count 4.33 M/mm3 (3.65-5.03); Red Cell Distribution Width 16.7 % (13.2-15.2)
[2021-10-08] MEDS ORDERED: RANOLAZINE ER 500 MG TAB 12HR PO ONE (07:25)
[2021-10-08] MEDS: MORPHINE 4 MG/1 ML INJ IV ONE ×2 (08:30→10:25)
--- NOTE | 2021-10-08 09:47 | History and Physical Report ---
History of Present Illness Date of examination: 10/08/21 Date of admission: 10/08/2021 Chief complaint: Chest pain History of present illness: 56 YO Male with systolic heart failure (EF 10%) patient is currently not wearing his LifeVest, CAD S/P Stent Placement on DAPT, HTN, [place] and CKD 3 presents to ED for evaluation of left-sided chest pain that began on Saturday. Patient reports the pain has been intermittent lasting for approximately 15 to 20 minutes in duration after onset occurring approximately 3 times a day. Patient reported associated symptoms of palpitation that began yesterday and this morning which prompted his visit to the emergency room. Patient also reported associated symptoms of nausea and vomiting approximately 5-6 times over the past week as well as diaphoresis and dyspnea at rest and on exertion. Patient was recently hospitalized here in July and August for ACS. The patient had left heart catheterization August 2021 with placement of a stent. [facility] 08/23/21: Conclusions: 1. Chronic multivessel coronary artery disease with multiple prior PCI's, presents with an ulcerated 80 to 90% mid LAD stenosis, status post successful IVUS guided PCI, with placement of drug-eluting stent with excellent final angiographic and ultrasonographic results. No complications. Severe left ventricular dysfunction, estimated ejection fraction of 20%. Normal LVEDP. Echo 08/23/2021-EF 15%. Mild diastolic dysfunction is present impaired relaxation pattern. Mild concentric LVH. Moderate to severe tricuspid regurgitation. Severe pulmonary hypertension Patient currently denies any chest pain or shortness of breath. Past History Past Medical History: CAD, heart failure, hypertension Past Surgical History: PTCA Social history: smoking (Former smoker) Family history: no significant family history Medications and Allergies Allergies Allergy/AdvReac Type Severity Reaction Status Date / Time Sulfa (Sulfonamide Allergy Anaphylaxis Verified 07/13/21 13:28 Antibiotics) Home Medications Medication Instructions Recorded Confirmed Last Taken Type Furosemide [Lasix TAB] 40 mg PO BID #60 05/08/21 08/23/21 2 Days Ago Rx ~08/21/21 40 mg Potassium Chloride 10 meq PO BID #60 05/08/21 08/23/21 2 Days Ago Rx ~08/21/21 10 meq Aspirin EC [Ecotrin] 325 mg PO QDAY 30 Days #30 tablet 08/24/21 Unknown Rx AtorvaSTATin [Lipitor] 40 mg PO QHS #30 tablet 08/24/21 Unknown Rx Clopidogrel [Plavix] 75 mg PO DAILY 30 Days #30 tab 08/24/21 Unknown Rx ISOSORBIDE MONOnitrate [Imdur ER] 30 mg PO QDAY 30 Days #30 tablet 08/24/21 Unknown Rx Nitroglycerin [Nitrostat] 0.4 mg SL Q5M PRN 30 Days #30 08/24/21 Unknown Rx tablet Ranolazine ER [Ranexa ER] 500 mg PO BID 30 Days #60 tablet 08/24/21 Unknown Rx carvediloL [Coreg] 25 mg PO BID 30 Days #60 tablet 08/24/21 Unknown Rx hydrALAZINE [Apresoline TAB] 100 mg PO BID 30 Days #60 tab 08/24/21 Unknown Rx Active Meds: Active Medications Nitroglycerin (Nitroglycerin 0.4 Mg Tab Subl) 0.4 mg SL .Q5MIN PRN PRN Reason: Chest Pain Review of Systems All systems: negative Exam - Constitutional Vitals: Temp Pulse Resp BP Pulse Ox 97.9 F 95 H 16 184/123 99 10/08/21 02:17 10/08/21 08:30 10/08/21 02:17 10/08/21 08:30 10/08/21 02:17 General appearance: Present: no acute distress, well-nourished - EENT Eyes: Present: PERRL ENT: hearing intact, clear oral mucosa - Neck Neck: Present: supple, normal ROM - Respiratory Respiratory effort: normal Respiratory: bilateral: CTA - Cardiovascular Heart Sounds: Present: S1 & S2. Absent: rub, click - Extremities Extremities: pulses symmetrical, No edema Peripheral Pulses: within normal limits - Abdominal General gastrointestinal: Present: soft, non-tender, non-distended, normal bowel sounds Male genitourinary: Present: normal - Integumentary Integumentary: Present: clear, warm, dry - Musculoskeletal Musculoskeletal: gait normal, strength equal bilaterally - Psychiatric Psychiatric: appropriate mood/affect, intact judgment & insight - Neurologic Neurologic: CNII-XII intact, moves all extremities HEART Score - HEART Score EKG: Non-specific Age: 45-65 Risk factors: > 3 risk factors or hx of atherosclerotic disease Troponin: Troponin T 0.019 ng/mL (0.00-0.029) 10/08/21 05:11 Troponin: < normal limit - Critical Actions Critical Actions: 4-6 pts:12-16.6% risk of adverse cardiac event. Should be admitted Results - Labs CBC & Chem 7: 10/08/21 06:08 10/08/21 05:11 Labs: Laboratory Last Values WBC 7.5 K/mm3 (4.5-11.0) 10/08/21 06:08 RBC 4.33 M/mm3 (3.65-5.03) 10/08/21 06:08 Hgb 12.8 gm/dl (11.8-15.2) 10/08/21 06:08 Hct 40.8 % (35.5-45.6) 10/08/21 06:08 MCV 94 fl (84-94) 10/08/21 06:08 MCH 30 pg (28-32) 10/08/21 06:08 MCHC 31 % (32-34) L 10/08/21 06:08 RDW 16.7 % (13.2-15.2) H 10/08/21 06:08 Plt Count 243 K/mm3 (140-440) 10/08/21 06:08 Lymph % (Auto) Psychological Science Professor 10/08/21 06:08 [place] % (Auto) Psychological Science Professor 10/08/21 06:08 Eos % (Auto) Psychological Science Professor 10/08/21 06:08 Baso % (Auto) Psychological Science Professor 10/08/21 06:08 Lymph # (Auto) Psychological Science Professor 10/08/21 06:08 [place] # (Auto) Psychological Science Professor 10/08/21 06:08 Eos # (Auto) Psychological Science Professor 10/08/21 06:08 Baso # (Auto) Psychological Science Professor 10/08/21 06:08 Seg Neutrophils % Psychological Science Professor 10/08/21 06:08 Seg Neutrophils # Psychological Science Professor 10/08/21 06:08 PT 14.0 Sec. (12.2-14.9) 10/08/21 05:11 INR 0.97 (0.87-1.13) 10/08/21 05:11 Sodium 142 mmol/L (137-145) 10/08/21 05:11 Potassium 3.4 mmol/L (3.6-5.0) L 10/08/21 05:11 Chloride 106.6 mmol/L (98-107) 10/08/21 05:11 Carbon Dioxide 19 mmol/L (22-30) L 10/08/21 05:11 Anion Gap 20 mmol/L 10/08/21 05:11 BUN 33 mg/dL (9-20) H 10/08/21 05:11 Creatinine 2.1 mg/dL (0.8-1.3) H 10/08/21 05:11 Estimated GFR 40 ml/min 10/08/21 05:11 BUN/Creatinine Ratio 16 % 10/08/21 05:11 Glucose 98 mg/dL (75-100) 10/08/21 05:11 Calcium 8.9 mg/dL (8.4-10.2) 10/08/21 05:11 Troponin T 0.019 ng/mL (0.00-0.029) 10/08/21 05:11 Assessment and Plan Assessment and plan: The patient is a 56 YO AAM with known history of HLD, CAD, [place], s/p multiple stents and CKD-3 who presented to [facility] ED on 10/08/2021 with left sided chest pain for 3 days. The patient admitted with diagnosis below: Acute coronary syndrome/unstable angina Ischemic cardiomyopathy Chronic systolic heart failure, compensated History of CAD with PCI CKD 3 Hypertension Hyperlipidemia 10/08/2021. Patient will be admitted and placed on the chest pain pathway. We will consult cardiology for further evaluation. Continue Ranexa 500 mg p.o. twice daily, dual antiplatelet therapy with aspirin and Plavix. Continue GDMT with aspirin, Lipitor, Coreg, Plavix, Imdur and hydralazine. Continue to follow serial cardiac isoenzymes. No LUCIANO inhibitor given CKD 3. Creatinine appears to be at baseline.
[2021-10-08] MEDS ORDERED: HYDROcodone/ACETAMINOPHEN 5-325 MG TAB PO PRN (09:55)
[2021-10-08] MEDS ORDERED: ONDANSETRON 4 MG/2 ML INJ IV PRN (09:55)
[2021-10-08] MEDS ORDERED: MORPHINE 4 MG/1 ML INJ IV PRN (09:55)
[2021-10-08] MEDS ORDERED: ACETAMINOPHEN 325 MG TAB PO PRN (09:55)
[2021-10-08] MEDS: hydrALAZINE 100 MG TAB PO SCH ×2 (11:43→22:17)
[2021-10-08] MEDS: POTASSIUM CHLORIDE ER 10 MEQ TAB PO SCH ×2 (11:43→22:17)
[2021-10-08] MEDS: carvediloL 25 MG TAB PO SCH ×2 (11:43→22:17)
[2021-10-08] MEDS: CLOPIDOGREL 75 MG TAB PO SCH (11:43)
[2021-10-08] MEDS: HEPARIN 5,000 UNIT/1 ML VIAL SUB-Q SCH ×2 (14:37→22:17)
[2021-10-08] MEDS: FUROSEMIDE 40 MG TAB PO SCH (17:38)
[2021-10-08] MEDS: RANOLAZINE ER 500 MG TAB 12HR PO SCH (22:17)
[2021-10-09 06:02] LABS: Basophils % (Auto) 0.7 % (0.0-1.8); Eosinophils # (Auto) 0.1 K/mm3 (0.0-0.4); Eosinophils % (Auto) 2.1 % (0.0-4.3); Hematocrit 36.3 % (35.5-45.6); Hemoglobin 11.9 gm/dl (11.8-15.2); Lymphocytes # (Auto) 1.3 K/mm3 (1.2-5.4); Lymphocytes % (Auto) 24.3 % (13.4-35.0); Mean Corpuscular HGB Conc 33 % (32-34); Mean Corpuscular Volume 93 fl (84-94); Monocytes # (Auto) 0.4 K/mm3 (0.0-0.8); Monocytes % (Auto) 8.2 % (0.0-7.3); Platelet Count 220 K/mm3 (140-440); Red Blood Count 3.92 M/mm3 (3.65-5.03); Red Cell Distribution Width 16.5 % (13.2-15.2)
[2021-10-09] MEDS: HEPARIN 5,000 UNIT/1 ML VIAL SUB-Q SCH ×3 (06:20→23:30)
[2021-10-09 06:26] LABS: Calcium 8.6 mg/dL (8.4-10.2)
[2021-10-09] MEDS ORDERED: POTASSIUM CHLORIDE ER 20 MEQ TAB PO SCH (08:00)
--- NOTE | 2021-10-09 08:25 | Consultation ---
History of Present Illness History of present illness: Presented with chest pain which was sharp and tight. Now resolved. No shortness of breath. Feeling much better. Past History Past Medical History: CAD, heart failure, hypertension Past Surgical History: PTCA Social history: smoking (Former smoker) Family history: no significant family history Medications and Allergies Allergies Allergy/AdvReac Type Severity Reaction Status Date / Time Sulfa (Sulfonamide Allergy Anaphylaxis Verified 07/13/21 13:28 Antibiotics) Home Medications Medication Instructions Recorded Confirmed Last Taken Type Furosemide [Lasix TAB] 40 mg PO BID #60 05/08/21 08/23/21 2 Days Ago Rx ~08/21/21 40 mg Potassium Chloride 10 meq PO BID #60 05/08/21 08/23/21 2 Days Ago Rx ~08/21/21 10 meq Aspirin EC [Ecotrin] 325 mg PO QDAY 30 Days #30 tablet 08/24/21 Unknown Rx AtorvaSTATin [Lipitor] 40 mg PO QHS #30 tablet 08/24/21 Unknown Rx Clopidogrel [Plavix] 75 mg PO DAILY 30 Days #30 tab 08/24/21 Unknown Rx ISOSORBIDE MONOnitrate [Imdur ER] 30 mg PO QDAY 30 Days #30 tablet 08/24/21 Unknown Rx Nitroglycerin [Nitrostat] 0.4 mg SL Q5M PRN 30 Days #30 08/24/21 Unknown Rx tablet Ranolazine ER [Ranexa ER] 500 mg PO BID 30 Days #60 tablet 08/24/21 Unknown Rx carvediloL [Coreg] 25 mg PO BID 30 Days #60 tablet 08/24/21 Unknown Rx hydrALAZINE [Apresoline TAB] 100 mg PO BID 30 Days #60 tab 08/24/21 Unknown Rx Active Meds: Active Medications Acetaminophen (Acetaminophen 325 Mg Tab) 650 mg PO Q4H PRN PRN Reason: Pain MILD(1-3)/Fever >100.5/VILLALOBOS Hydrocodone Bitart/Acetaminophen (Hydrocodone/Acetaminophen 5-325 Mg Tab) 2 each PO Q6H PRN PRN Reason: Pain, Moderate (4-6) Aspirin (Aspirin Ec 325 Mg Tab) 325 mg PO QDAY [facility] Atorvastatin Calcium (Atorvastatin 40 Mg Tab) 40 mg PO QHS [facility] Last Admin: 10/08/21 22:17 Dose: 40 mg Carvedilol (Carvedilol 25 Mg Tab) 25 mg PO BID [facility] Last Admin: 10/08/21 22:17 Dose: 25 mg Clopidogrel Bisulfate (Clopidogrel 75 Mg Tab) 75 mg PO DAILY [facility] Last Admin: 10/08/21 11:43 Dose: 75 mg Furosemide (Furosemide 40 Mg Tab) 40 mg PO 0800,1700 [facility] Last Admin: 10/08/21 17:38 Dose: 40 mg Heparin Sodium (Porcine) (Heparin 5,000 Unit/1 Ml Vial) 5,000 unit SUB-Q Q8HR [facility] Last Admin: 10/09/21 06:20 Dose: 5,000 unit Hydralazine HCl (Hydralazine 100 Mg Tab) 100 mg PO BID [facility] Last Admin: 10/08/21 22:17 Dose: 100 mg Isosorbide Mononitrate (Isosorbide Mononitrate Er 30 Mg Tab) 30 mg PO QDAY [facility] Last Admin: 10/08/21 11:43 Dose: 30 mg Morphine Sulfate (Morphine 4 Mg/1 Ml Inj) 2 mg IV Q4H PRN PRN Reason: Pain , Severe (7-10) Nitroglycerin (Nitroglycerin 0.4 Mg Tab Subl) 0.4 mg SL .Q5MIN PRN PRN Reason: Chest Pain Ondansetron HCl (Ondansetron 4 Mg/2 Ml Inj) 4 mg IV Q8H PRN PRN Reason: Nausea And Vomiting Potassium Chloride (Potassium Chloride Er 20 Meq Tab) 40 meq PO ONCE@0800 [facility] Stop: 10/09/21 12:00 Ranolazine (Ranolazine Er 500 Mg Tab 12hr) 500 mg PO BID [facility] Last Admin: 10/08/21 22:17 Dose: 500 mg Sodium Chloride (Sodium Chloride 0.9% 10 Ml Flush Syringe) 10 ml IV BID [facility] Last Admin: 10/08/21 22:18 Dose: 10 ml Sodium Chloride (Sodium Chloride 0.9% 10 Ml Flush Syringe) 10 ml IV PRN PRN PRN Reason: LINE FLUSH Physical Examination Vital Signs Temp Pulse Resp BP Pulse Ox 97.9 F 95 H 16 172/129 99 10/08/21 02:17 10/08/21 02:17 10/08/21 02:17 10/08/21 02:17 10/08/21 02:17 Results 10/09/21 04:49 10/09/21 04:49 Cardiac Enzymes 10/08/21 10/08/21 10/08/21 Range/Units 05:11 05:11 06:08 WBC 7.5 (4.5-11.0) K/mm3 RBC 4.33 (3.65-5.03) M/mm3 Hgb 12.8 (11.8-15.2) gm/dl Hct 40.8 (35.5-45.6) % MCV 94 (84-94) fl MCH 30 (28-32) pg MCHC 31 L (32-34) % RDW 16.7 H (13.2-15.2) % Plt Count 243 (140-440) K/mm3 Lymph % (Auto) Front End [employer] Developer [place] % (Auto) Front End Java Developer Eos % (Auto) Front End Java Developer Baso % (Auto) Front End Java Developer Lymph # (Auto) Front End Java Developer [place] # (Auto) Front End Java Developer Eos # (Auto) Front End Java Developer Baso # (Auto) Front End Java Developer Seg Neutrophils % Front End Java Developer Seg Neutrophils # Front End Java Developer PT 14.0 (12.2-14.9) Sec. INR 0.97 (0.87-1.13) Sodium 142 (137-145) mmol/L Potassium 3.4 L (3.6-5.0) mmol/L Chloride 106.6 (98-107) mmol/L Carbon Dioxide 19 L (22-30) mmol/L Anion Gap 20 mmol/L BUN 33 H (9-20) mg/dL Creatinine 2.1 H (0.8-1.3) mg/dL Estimated GFR 40 ml/min BUN/Creatinine Ratio 16 % Glucose 98 (75-100) mg/dL Calcium 8.9 (8.4-10.2) mg/dL Troponin T 0.019 (0.00-0.029) ng/mL 10/09/21 10/09/21 Range/Units 04:49 04:49 WBC 5.3 (4.5-11.0) K/mm3 RBC 3.92 (3.65-5.03) M/mm3 Hgb 11.9 (11.8-15.2) gm/dl Hct 36.3 (35.5-45.6) % MCV 93 (84-94) fl MCH 30 (28-32) pg MCHC 33 (32-34) % RDW 16.5 H (13.2-15.2) % Plt Count 220 (140-440) K/mm3 Lymph % (Auto) 24.3 [place] % (Auto) 8.2 H Eos % (Auto) 2.1 Baso % (Auto) 0.7 Lymph # (Auto) 1.3 [place] # (Auto) 0.4 Eos # (Auto) 0.1 Baso # (Auto) 0.0 Seg Neutrophils % 64.7 Seg Neutrophils # 3.5 PT (12.2-14.9) Sec. INR (0.87-1.13) Sodium 139 (137-145) mmol/L Potassium 3.4 L (3.6-5.0) mmol/L Chloride 103.3 (98-107) mmol/L Carbon Dioxide 23 (22-30) mmol/L Anion Gap 16 mmol/L BUN 29 H (9-20) mg/dL Creatinine 2.1 H (0.8-1.3) mg/dL Estimated GFR 40 ml/min BUN/Creatinine Ratio 14 % Glucose 89 (75-100) mg/dL Calcium 8.6 (8.4-10.2) mg/dL Troponin T (0.00-0.029) ng/mL CBC 10/09/21 Range/Units 04:49 WBC 5.3 (4.5-11.0) K/mm3 RBC 3.92 (3.65-5.03) M/mm3 Hgb 11.9 (11.8-15.2) gm/dl Hct 36.3 (35.5-45.6) % Plt Count 220 (140-440) K/mm3 Lymph # (Auto) 1.3 (1.2-5.4) K/mm3 [place] # (Auto) 0.4 (0.0-0.8) K/mm3 Eos # (Auto) 0.1 (0.0-0.4) K/mm3 Baso # (Auto) 0.0 (0.0-0.1) K/mm3 Comprehensive Metabolic Panel 10/09/21 Range/Units 04:49 Sodium 139 (137-145) mmol/L Potassium 3.4 L (3.6-5.0) mmol/L Chloride 103.3 (98-107) mmol/L Carbon Dioxide 23 (22-30) mmol/L BUN 29 H (9-20) mg/dL Creatinine 2.1 H (0.8-1.3) mg/dL Glucose 89 (75-100) mg/dL Calcium 8.6 (8.4-10.2) mg/dL Assessment and Plan Patient re-presents with chest pain with typical and atypical features. He is currently chest pain-free. EKG is nonacute and first troponin is normal. Recent cardiac catheterization and PCI are again reviewed. Continue with goal-directed medical therapy. Nuclear stress test in a.m. Importance of compliance and medication adherence discussed again. We will follow. - Patient Problems (1) CAD (coronary artery disease) Current Visit: No Status: Acute (2) Chest pain Current Visit: No Status: Acute (3) Malignant hypertension Current Visit: No Status: Acute (4) Cardiomyopathy Current Visit: No Status: Chronic Qualifiers: Cardiomyopathy type: ischemic Qualified Code(s): I25.5 - Ischemic cardiomyopathy (5) HTN (hypertension) Current Visit: No Status: Chronic Qualifiers: Hypertension type: primary hypertension Qualified Code(s): I10 - Essential (primary) hypertension (6) History of myocardial infarction Current Visit: No Status: Chronic (7) Hyperlipemia, mixed Current Visit: No Status: Chronic (8) Medical non-compliance Current Visit: No Status: Chronic (9) Moderate pulmonary hypertension Current Visit: No Status: Chronic (10) Stented coronary artery Current Visit: No Status: Chronic
[2021-10-09] MEDS: CLOPIDOGREL 75 MG TAB PO SCH (09:17)
[2021-10-09] MEDS: hydrALAZINE 100 MG TAB PO SCH ×2 (09:17→23:30)
[2021-10-09] MEDS: carvediloL 25 MG TAB PO SCH ×2 (09:17→23:30)
[2021-10-09] MEDS: ASPIRIN EC 325 MG TAB PO SCH (09:17)
[2021-10-09] MEDS: RANOLAZINE ER 500 MG TAB 12HR PO SCH ×2 (09:17→23:29)
[2021-10-09] MEDS: FUROSEMIDE 40 MG TAB PO SCH ×2 (09:17→16:44)
--- NOTE | 2021-10-09 11:15 | Progress Note ---
Assessment and Plan Assessment and plan: The patient is a 56 YO AAM with known history of HLD, CAD, NV, s/p multiple stents and CKD-3 who presented to [facility] ED with left sided chest pain for 3 days. #Acute coronary syndrome/unstable angina -chest pain free currently -troponin 0.019 -continue ranexa -plan for stress test in the morning -Cardiology following, assistance appreciated #Chronic systolic heart failure, compensated #Ischemic cardiomyopathy #History of CAD with PCI -LVEF 15%, 1 DERIAN placed 08/2021 -continue DAPT -continue coreg, hydralazine, imdur and lasix at home doses #Acute kidney injury on Chronic Kidney Disease stage III -baseline SCr 1.8, SCr 2.1 -will avoid nephrotoxins and renally dose medications -if worsens, will consider Nephrology consult #Hypertension -restarted home medications, will titrate as needed #Hyperlipidemia -continue statin #Hypokalemia -will replete and monitor #Advanced care planning -Disease education conducted, care plan discussed, diagnoses discussed, prognosis discussed, and patient acknowledges understanding with care plan -Time: +30 min History Interval history: No acute events overnight. Patient reports resolution of chest pain and feels much better than he did at home. Patient feels discouraged due to his failing health. No complaints at this time. Hospitalist Physical - Physical exam Narrative exam: GENERAL: Well-developed well-nourished. In no acute distress. HEENT: Normocephalic. Atraumatic. NECK: Supple. CHEST/LUNGS: CTAB on room air HEART/CARDIOVASCULAR: RRR. +3/6 systolic murmur best heard at LUSB. No rubs or gallops appreciated. ABDOMEN: +BS. NT/ND. SKIN: No rashes noted. NEURO: No focal motor deficit. Follows all commands. MUSCULOSKELETAL: No joint effusion EXTREMITIES: No cyanosis, clubbing or edema. PSYCH: Cooperative. - Constitutional Vitals: Temp Pulse Resp BP Pulse Ox 97.7 F 72 18 158/116 98 10/09/21 08:03 10/09/21 10:00 10/09/21 08:56 10/09/21 08:03 10/09/21 08:56 General appearance: Present: no acute distress, well-nourished HEART Score - HEART Score EKG: Non-specific Age: 45-65 Risk factors: > 3 risk factors or hx of atherosclerotic disease Troponin: Troponin T 0.019 ng/mL (0.00-0.029) 10/08/21 05:11 Troponin: < normal limit - Critical Actions Critical Actions: 4-6 pts:12-16.6% risk of adverse cardiac event. Should be admitted Results - Labs CBC & Chem 7: 10/09/21 04:49 10/09/21 04:49 Labs: Laboratory Last Values WBC 5.3 K/mm3 (4.5-11.0) 10/09/21 04:49 RBC 3.92 M/mm3 (3.65-5.03) 10/09/21 04:49 Hgb 11.9 gm/dl (11.8-15.2) 10/09/21 04:49 Hct 36.3 % (35.5-45.6) 10/09/21 04:49 MCV 93 fl (84-94) 10/09/21 04:49 MCH 30 pg (28-32) 10/09/21 04:49 MCHC 33 % (32-34) 10/09/21 04:49 RDW 16.5 % (13.2-15.2) H 10/09/21 04:49 Plt Count 220 K/mm3 (140-440) 10/09/21 04:49 Lymph % (Auto) 24.3 % (13.4-35.0) 10/09/21 04:49 [place] % (Auto) 8.2 % (0.0-7.3) H 10/09/21 04:49 Eos % (Auto) 2.1 % (0.0-4.3) 10/09/21 04:49 Baso % (Auto) 0.7 % (0.0-1.8) 10/09/21 04:49 Lymph # (Auto) 1.3 K/mm3 (1.2-5.4) 10/09/21 04:49 [place] # (Auto) 0.4 K/mm3 (0.0-0.8) 10/09/21 04:49 Eos # (Auto) 0.1 K/mm3 (0.0-0.4) 10/09/21 04:49 Baso # (Auto) 0.0 K/mm3 (0.0-0.1) 10/09/21 04:49 Seg Neutrophils % 64.7 % (40.0-70.0) 10/09/21 04:49 Seg Neutrophils # 3.5 K/mm3 (1.8-7.7) 10/09/21 04:49 PT 14.0 Sec. (12.2-14.9) 10/08/21 05:11 INR 0.97 (0.87-1.13) 10/08/21 05:11 Sodium 139 mmol/L (137-145) 10/09/21 04:49 Potassium 3.4 mmol/L (3.6-5.0) L 10/09/21 04:49 Chloride 103.3 mmol/L (98-107) 10/09/21 04:49 Carbon Dioxide 23 mmol/L (22-30) 10/09/21 04:49 Anion Gap 16 mmol/L 10/09/21 04:49 BUN 29 mg/dL (9-20) H 10/09/21 04:49 Creatinine 2.1 mg/dL (0.8-1.3) H 10/09/21 04:49 Estimated GFR 40 ml/min 10/09/21 04:49 BUN/Creatinine Ratio 14 % 10/09/21 04:49 Glucose 89 mg/dL (75-100) 10/09/21 04:49 Calcium 8.6 mg/dL (8.4-10.2) 10/09/21 04:49 Troponin T 0.019 ng/mL (0.00-0.029) 10/08/21 05:11 Joseph/IV: Voiding Method Urinal Active Medications - Current Medications Current Medications: Generic Name Dose Route Start Last Admin Trade Name Freq PRN Reason Stop Dose Admin Acetaminophen 650 mg 10/08/21 09:55 Acetaminophen 325 Mg Tab PO Q4H PRN Pain MILD(1-3)/Fever >100.5/VILLALOBOS Hydrocodone Bitart/Acetaminophen 2 each 10/08/21 09:55 Hydrocodone/Acetaminophen 5-325 Mg Tab PO Q6H PRN Pain, Moderate (4-6) Aspirin 325 mg 10/09/21 10:00 10/09/21 09:17 Aspirin Ec 325 Mg Tab PO 325 mg QDAY TOMER Administration Atorvastatin Calcium 40 mg 10/08/21 22:00 10/08/21 22:17 Atorvastatin 40 Mg Tab PO 40 mg QHS TOMER Administration Carvedilol 25 mg 10/08/21 11:00 10/09/21 09:17 Carvedilol 25 Mg Tab PO 25 mg BID TOMER Administration Clopidogrel Bisulfate 75 mg 10/08/21 11:00 10/09/21 09:17 Clopidogrel 75 Mg Tab PO 75 mg DAILY TOMER Administration Furosemide 40 mg 10/08/21 17:00 10/09/21 09:17 Furosemide 40 Mg Tab PO 40 mg 0800,1700 TOMER Administration Heparin Sodium (Porcine) 5,000 unit 10/08/21 14:00 10/09/21 06:20 Heparin 5,000 Unit/1 Ml Vial SUB-Q 5,000 unit Q8HR TOMER Administration Hydralazine HCl 100 mg 10/08/21 11:00 10/09/21 09:17 Hydralazine 100 Mg Tab PO 100 mg BID TOMER Administration Isosorbide Mononitrate 30 mg 10/08/21 11:00 10/09/21 09:17 Isosorbide Mononitrate Er 30 Mg Tab PO 30 mg QDAY TOMER Administration Morphine Sulfate 2 mg 10/08/21 09:55 Morphine 4 Mg/1 Ml Inj IV Q4H PRN Pain , Severe (7-10) Nitroglycerin 0.4 mg 10/08/21 10:27 Nitroglycerin 0.4 Mg Tab Subl SL .Q5MIN PRN Chest Pain Ondansetron HCl 4 mg 10/08/21 09:55 Ondansetron 4 Mg/2 Ml Inj IV Q8H PRN Nausea And Vomiting Potassium Chloride 40 meq 10/09/21 08:00 10/09/21 09:17 Potassium Chloride Er 20 Meq Tab PO 10/09/21 12:00 40 meq ONCE@0800 TOMER Administration Ranolazine 500 mg 10/08/21 22:00 10/09/21 09:17 Ranolazine Er 500 Mg Tab 12hr PO 500 mg BID TOMER Administration Sodium Chloride 10 ml 10/08/21 11:00 10/09/21 09:18 Sodium Chloride 0.9% 10 Ml Flush Syringe IV 10 ml BID TOMER Administration Sodium Chloride 10 ml 10/08/21 09:55 Sodium Chloride 0.9% 10 Ml Flush Syringe IV PRN PRN LINE FLUSH
--- NOTE | 2021-10-09 20:16 | Electrocardiograph Report ---
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
--- NOTE | 2021-10-09 20:16 | Electrocardiograph Report ---
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
[2021-10-10 05:18] LABS: Calcium 8.4 mg/dL (8.4-10.2)
[2021-10-10] MEDS: HEPARIN 5,000 UNIT/1 ML VIAL SUB-Q SCH ×2 (06:23→13:17)
[2021-10-10] MEDS ORDERED: REGADENOSON 0.4 MG/5 ML INJ IV ONE (07:19)
[2021-10-10] MEDS ORDERED: FUROSEMIDE 40 MG/4 ML INJ IV SCH (11:00)
--- NOTE | 2021-10-10 12:16 | Progress Note ---
Assessment and Plan This is a 56-year-old -[place] male, who Presented with chest pain which was sharp and tight. Now resolved. Feeling much better. Sees [facility] as outpatient. Assessment Chest Pain Ischemic Cardiomyopathy Chronic HFrEF H/o CAD s/p PCI HTN Hyperlipidemia Pulmonary Hypertension Chronic Renal Insufficiency Stage III Cardiographics EK10/10/2021: Sinus rhythm 73, suggestive of LVH, nonspecific T wave abnormalities. No acute ischemia Cxr: 10/08/2021: Small dependent right pleural effusion, stable cardiomegaly Echocardiogram 08/23/2021- Severe global hypokinesis of LV. LVEF 15%. Mild diastolic dysfunction is present. Mild concentric left ventricular hypertrophy. Moderate to severe tricuspid regurgitation. RVSP 73 mmHg. Severe pulmonary hypertension. There is no pericardial effusion Stress test 10/10/2021- prelim report negative for reversible ischemia Cath 07/18/2021- IVUS guided PCI of LAD and LCx with POBA of the D1 ISR with DERIAN, w/ Impella placement Cath 08/23/2021: (See full report) Chronic multivessel coronary artery disease with multiple prior PCI's, presents with ulcerated 80 to 90% mid LAD stenosis, status post successful IVUS guided PCI with DERIAN Recommendations/plan: Underwent Lexiscan MPI stress test today. Prelimimary MPI without evidence of reversible ischemia. No ischemic changes noted on EKG. Patient with some SOB this morning. Will give one time dose of IV lasix. May discharge home in afternoon if he is feeling better with IV diuresis. He is chest pain-free. Continue GDMT: Aspirin 325, Lipitor 40 mg p.o. nightly, carvedilol 25 mg p.o. twice daily, Plavix 75 mg p.o. daily, Lasix 40 mg p.o. twice daily, hydralazine 100 mg p.o. twice daily, Imdur 30 mg p.o. daily, Ranexa 500 mg p.o. twice daily Recommend to follow back up with [place] [facility], as well as keeping scheduled Outpatient follow-up appt for 11/06/[address] at [address] Huston in [facility] Importance of compliance and medication adhearance advised. Patient seen in conjunction with Dr. Huston who agrees with the assessment and management of this patient. Subjective Date of service: 10/10/21 Principal diagnosis: Chest pain Interval history: Patient seen and examined in the stress lab this morning. He states he is "blessed "and is feeling better. He endorses some slight shortness of breath, but is otherwise chest pain-free. Telemetry: Sinus rhythm Objective Vital Signs Temp Pulse Resp BP Pulse Ox 10/10/21 08:00 18 98 10/10/21 07:45 71 10/10/21 04:38 97.9 F 68 18 120/79 99 10/10/21 02:00 65 10/10/21 00:24 97.6 F 73 18 143/109 100 10/09/21 23:30 72 145/106 10/09/21 20:00 98 10/09/21 19:47 98.2 F 72 18 145/106 97 10/09/21 15:51 97.7 F 82 18 114/85 96 - Physical Examination General: Appears Well, No Apparent Distress Neck: Positive: trachea midline Cardiac: Positive: Reg Rate and Rhythm, S1/S2. Negative: Audible Murmur Lungs: Positive: Decreased Breath Sounds, Rales Neuro: Positive: Grossly Intact Abdomen: Positive: Soft Skin: Negative: Rash Extremities: Present: upper extr. pulses (1+). Absent: edema - Labs and Meds Comprehensive Metabolic Panel 10/10/21 Range/Units 03:56 Sodium 138 (137-145) mmol/L Potassium 3.8 (3.6-5.0) mmol/L Chloride 104.2 (98-107) mmol/L Carbon Dioxide 19 L (22-30) mmol/L BUN 32 H (9-20) mg/dL Creatinine 2.2 H (0.8-1.3) mg/dL Glucose 87 (75-100) mg/dL Calcium 8.4 (8.4-10.2) mg/dL - Imaging and Cardiology EKG: report reviewed Nuclear stress test: pending - Telemetry EKG Rhythm: Sinus Rhythm
[2021-10-10 12:38] VITALS: BP 160/116
--- NOTE | 2021-10-10 12:46 | Discharge Summary ---
Providers - Providers Date of Admission: 10/08/21 09:55 Date of discharge: 10/10/21 Attending physician: JOSE MORE MD 10/08/21 Consult to Cardiac Rehabilitation [CONS] Routine Reason For Exam: Phase 1 10/08/21 09:55 Consult to Physician [CONS] Routine Comment: Consulting Provider: FRANCISCA CLEMONS Physician Instructions: Reason For Exam: ACS Primary care physician: JOSEPHINE MONROE Hospitalization Reason for admission: Acute coronary syndrome/unstable angina Condition: Good Pertinent studies: Reviewed. Procedures: Cardiac stress test Hospital course: 56 YO Male with systolic heart failure (EF 10%) patient is currently not wearing his LifeVest, CAD S/P Stent Placement on DAPT, HTN, FL and CKD 3 presents to ED for evaluation of left-sided chest pain that began on Saturday. Patient reports the pain has been intermittent lasting for approximately 15 to 20 minutes in duration after onset occurring approximately 3 times a day. Patient reported associated symptoms of palpitation that began yesterday and this morning which prompted his visit to the emergency room. Patient also reported associated symptoms of nausea and vomiting approximately 5-6 times over the past week as well as diaphoresis and dyspnea at rest and on exertion. Patient was recently hospitalized here in July and August for ACS. The patient had left heart catheterization August 2021 with placement of a stent. [facility] 08/23/21: Conclusions: 1. Chronic multivessel coronary artery disease with multiple prior PCI's, presents with an ulcerated 80 to 90% mid LAD stenosis, status post successful IVUS guided PCI, with placement of drug-eluting stent with excellent final angiographic and ultrasonographic results. No complications. Severe left ventricular dysfunction, estimated ejection fraction of 20%. Normal LVEDP. Echo 08/23/2021-EF 15%. Mild diastolic dysfunction is present impaired relaxation pattern. Mild concentric LVH. Moderate to severe tricuspid regurgitation. Severe pulmonary hypertension. Cardiology was consulted for further management. Patient underwent cardiac stress test that was found to be unremarkable for reversible ischemia. Patient was counseled about following up with his outpatient supervisor boarding, and he expressed understanding. Patient is medically clear for discharge. Disposition: HOME / SELF CARE / HOMELESS Final Discharge Diagnosis (Prints w/discharge instructions): Acute coronary syndrome/unstable angina, chronic systolic heart failure, ischemic cardiomyopathy, history of CAD with PCI and AICD, GREGG on CKD stage III, hypertension, hyperlipidemia, hypokalemia Time spent for discharge: 45 min Core Measure Documentation - Palliative Care Palliative Care/ Comfort Measures: Not Applicable - Core Measures Any of the following diagnoses?: history only Exam - Constitutional Vitals: Temp Pulse Resp BP Pulse Ox 98.2 F 76 18 160/116 98 10/10/21 12:08 10/10/21 12:08 10/10/21 08:00 10/10/21 12:08 10/10/21 12:08 General appearance: Present: no acute distress, well-nourished - EENT Eyes: Present: PERRL, EOM intact ENT: hearing intact, clear oral mucosa, dentition normal - Neck Neck: Present: supple, normal ROM - Respiratory Respiratory effort: normal Respiratory: bilateral: diminished - Cardiovascular Rhythm: regular Heart Sounds: Present: S1 & S2 - Extremities Extremities: no ischemia, pulses intact, pulses symmetrical, No edema, normal temperature, normal color Peripheral Pulses: within normal limits - Abdominal General gastrointestinal: Present: soft, non-tender, non-distended, normal bowel sounds Male genitourinary: Present: deferred - Rectal Rectal Exam: deferred - Integumentary Integumentary: Present: clear, warm, dry - Musculoskeletal Musculoskeletal: strength equal bilaterally - Psychiatric Psychiatric: appropriate mood/affect, intact judgment & insight, memory intact, cooperative - Neurologic Neurologic: CNII-XII intact, moves all extremities - Allied Health Allied health notes reviewed: nursing Plan Activity: advance as tolerated Diet: low fat Additional Instructions: 56 YO Male with systolic heart failure (EF 10%) patient is currently not wearing his LifeVest, CAD S/P Stent Placement on DAPT, HTN, FL and CKD 3 presents to ED for evaluation of left-sided chest pain that began on Saturday. Patient reports the pain has been intermittent lasting for approximately 15 to 20 minutes in duration after onset occurring approximately 3 times a day. Patient reported associated symptoms of palpitation that began yesterday and this morning which prompted his visit to the emergency room. Patient also reported associated symptoms of nausea and vomiting approximately 5-6 times over the past week as well as diaphoresis and dyspnea at rest and on exertion. Patient was recently hospitalized here in July and August for ACS. The patient had left heart catheterization August 2021 with placement of a stent. [facility] 08/23/21: Conclusions: 1. Chronic multivessel coronary artery disease with multiple prior PCI's, presents with an ulcerated 80 to 90% mid LAD stenosis, status post successful IVUS guided PCI, with placement of drug-eluting stent with excellent final angiographic and ultrasonographic results. No complications. Severe left ventricular dysfunction, estimated ejection fraction of 20%. Normal LVEDP. Echo 08/23/2021-EF 15%. Mild diastolic dysfunction is present impaired relaxation pattern. Mild concentric LVH. Moderate to severe tricuspid regurgitation. Severe pulmonary hypertension. Cardiology was consulted for further management. Patient underwent cardiac stress test that was found to be unremarkable for reversible ischemia. Patient was counseled about following up with his outpatient supervisor boarding, and he expressed understanding. Patient is medically clear for discharge. Care Plan Goals: Patient is medically cleared for discharge. Assessment: 56 YO Male with systolic heart failure (EF 10%) patient is currently not wearing his LifeVest, CAD S/P Stent Placement on DAPT, HTN, FL and CKD 3 presents to ED for evaluation of left-sided chest pain that began on Saturday. Patient reports the pain has been intermittent lasting for approximately 15 to 20 minutes in duration after onset occurring approximately 3 times a day. Patient reported associated symptoms of palpitation that began yesterday and this morning which prompted his visit to the emergency room. Patient also reported associated symptoms of nausea and vomiting approximately 5-6 times over the past week as well as diaphoresis and dyspnea at rest and on exertion. Patient was recently hospitalized here in July and August for ACS. The patient had left heart catheterization August 2021 with placement of a stent. [facility] 08/23/21: Conclusions: 1. Chronic multivessel coronary artery disease with multiple prior PCI's, presents with an ulcerated 80 to 90% mid LAD stenosis, status post successful IVUS guided PCI, with placement of drug-eluting stent with excellent final angiographic and ultrasonographic results. No complications. Severe left ventricular dysfunction, estimated ejection fraction of 20%. Normal LVEDP. Echo 08/23/2021-EF 15%. Mild diastolic dysfunction is present impaired relaxation pattern. Mild concentric LVH. Moderate to severe tricuspid regurgitation. Severe pulmonary hypertension. Cardiology was consulted for further management. Patient underwent cardiac stress test that was found to be unremarkable for reversible ischemia. Patient was counseled about following up with his outpatient supervisor boarding, and he expressed understanding. Patient is medically clear for discharge. Follow up with: JOSEPHINE MONROE MD [Primary Care Provider] - 7 Days Prescriptions: AtorvaSTATin [Lipitor] 40 mg PO QHS #30 tablet hydrALAZINE [Apresoline TAB] 100 mg PO BID 30 Days #60 tab carvediloL [Coreg] 25 mg PO BID 30 Days #60 tablet Aspirin EC [Ecotrin] 81 mg PO QDAY 30 Days #30 tablet ISOSORBIDE MONOnitrate [Imdur ER] 30 mg PO QDAY 30 Days #30 tablet Furosemide [Lasix TAB] 40 mg PO BID #60 tab Nitroglycerin [Nitrostat] 0.4 mg SL Q5M PRN 30 Days #30 tablet PRN Reason: Chest Pain Clopidogrel [Plavix] 75 mg PO DAILY 30 Days #30 tab Ranolazine ER [Ranexa ER] 500 mg PO BID 30 Days #60 tablet
[2021-10-10] MEDS: hydrALAZINE 100 MG TAB PO SCH (13:17)
[2021-10-10] MEDS: ASPIRIN EC 325 MG TAB PO SCH (13:17)
[2021-10-10] MEDS: carvediloL 25 MG TAB PO SCH (13:17)
[2021-10-10] MEDS: FUROSEMIDE 40 MG TAB PO SCH (13:17)
[2021-10-10] MEDS: CLOPIDOGREL 75 MG TAB PO SCH (13:17)
[2021-10-10] MEDS: RANOLAZINE ER 500 MG TAB 12HR PO SCH (13:18)
--- NOTE | 2021-10-11 08:56 | Nuclear Medicine Report ---
APPROVED REPORT Exam: Nuclear Stress Test Indication: Chest pain [facility] Ht: 5 ft 9 in Wt: 200 lbs BSA: 2.07 m2 HR: 73 bpmBP: 147/104 mmHgBMI: 29.53 Rhythm: Sinus Rhythm Stress Test Details Stress Test: Pharmacologic stress testing performed using 0.4 mg of regadenoson per 5 mL given IV over 10 seconds. Reason for pharmacologic stress test: physical limitation. HR Resting HR: 74 bpm Max HR Achieved: 91 bpm Max Heart Rate (APMHR): 165.244212 bpm Target HR (85% APMHR): 140.540650 bpm % of APMHR: 55.15 Recovery HR: 79 bpm HR response to stress: Normal HR response to stress BP Resting BP: 149/96 mmHg Max BP: 164/113 mmHg Recovery BP: 147/102 mmHg BP response to stress: Abnormal hypertensive response to stress. ECG Resting ECG: Sinus Rhythm Stress ECG: Sinus Rhythm Arrhythmia: VPC's Recovery ECG: Sinus Rhythm Recovery Arrhythmia: VPC's Clinical Reason for Termination: Completed protocol Stress Symptoms: None NM EXAM: Myocardial Perfusion REST/STRESS Imaging Protocol: Rest Tc-99m/Stress Tc-99m 1 day Resting Data Rest SPECT myocardial perfusion imaging was performed in supine position 45 minutes following the intravenous injection of 10 mCi of Tc-99m Myoview. Time of rest injection: 0700 Date: 10/10/2021 Pharmacologic Stress Pharmacologic stress test was performed by injecting Regadenoson 0.4 mg IV push followed by the intravenous injection of 28 mCi of Tc-99m Myoview. Time of stress injection: 10:27:35 Date: 10/10/2021 Gated Stress SPECT was performed 30 minutes after stress injection. The images were gated to evaluate regional wall motion and calculate left ventricular ejection fraction. Study Quality Study: excellent Lung Uptake: Normal Perfusion Wall Motion There is a medium area of hypokinesis in the mid and apical segment of the anterior wall which is seen on the stress images as well as the resting images. There is a medium area of akinesis in the entire segment of the anterolateral wall which is seen on the stress images as well as the resting images. Severely decreased left ventricular systolic function. Nuclear Conclusion ECG Findings: negative for ischemia Clinical Findings: negative for ischemia Nuclear Findings: negative for ischemia Exercise Capacity: not assessed Left Ventricular Function: abnormal There is a medium area of hypokinesis in the mid and apical segment of the anterior wall which is seen on the stress images as well as the resting images. There is a medium area of akinesis in the entire segment of the anterolateral wall which is seen on the stress images as well as the resting images. negative lexiscan ekg, no signficant ischemia, ef 15%
== END 2021-10-10 16:45 | disposition home or self-care (01) | DRG 303 ==
LOC: ED 02:13 → 4A 09:55
PROVIDERS: ADMIT Hospitalist; ATTEND Student in an Organized Health Care Education/Training Program
DX: I25.110 Atherosclerotic heart disease of native coronary artery with unstable angina pectoris (principal); I24.9 Acute ischemic heart disease, unspecified; I13.0 Hypertensive heart and chronic kidney disease with heart failure and stage 1 through stage 4 chronic kidney disease, or unspecified chronic kidney disease; I50.22 Chronic systolic (congestive) heart failure; N17.9 Acute kidney failure, unspecified; I42.9 Cardiomyopathy, unspecified; I25.5 Ischemic cardiomyopathy; M19.90 Unspecified osteoarthritis, unspecified site; I16.0 Hypertensive urgency; N18.30 Chronic kidney disease, stage 3 unspecified; E78.5 Hyperlipidemia, unspecified; I27.20 Pulmonary hypertension, unspecified; E87.6 Hypokalemia; Z87.891 Personal history of nicotine dependence; I25.2 Old myocardial infarction; Z95.5 Presence of coronary angioplasty implant and graft; Z88.2 Allergy status to sulfonamides; Z88.1 Allergy status to other antibiotic agents
CPT/HCPCS: 36415; 71045; 78452; 80048; 84484; 85025; 85610; 93005; 93017; G0378; A9502; J0360; J1644; J1940; J2270; J2765; J2785

== ENCOUNTER 2022-02-08 17:00 | Emergency (ER) | payer SELFPAY ==
--- NOTE | 2022-02-08 18:30 | XRay Report ---
CHEST 2 VIEWS INDICATION / CLINICAL INFORMATION: chest pain. COMPARISON: 10/08/2021 FINDINGS: SUPPORT DEVICES: None. HEART / MEDIASTINUM: No significant abnormality. LUNGS / PLEURA: No significant pulmonary or pleural abnormality. No pneumothorax. ADDITIONAL FINDINGS: No significant additional findings. IMPRESSION: 1. No acute findings. Signer Name: Harjeet Gamboa MD Signed: 02/08/2022 6:25 PM Workstation Name: [email or web address]
[2022-02-08 21:03] LABS: Basophils % (Auto) 0.5 % (0.0-1.8); Eosinophils # (Auto) 0.1 K/mm3 (0.0-0.4); Hematocrit 43.8 % (35.5-45.6); Hemoglobin 14.1 gm/dl (11.8-15.2); Lymphocytes # (Auto) 1.1 K/mm3 (1.2-5.4); Lymphocytes % (Auto) 15.4 % (13.4-35.0); Mean Corpuscular HGB Conc 32 % (32-34); Mean Corpuscular Volume 96 fl (84-94); Monocytes # (Auto) 0.5 K/mm3 (0.0-0.8); Platelet Count 197 K/mm3 (140-440); Red Blood Count 4.56 M/mm3 (3.65-5.03); Red Cell Distribution Width 16.4 % (13.2-15.2)
[2022-02-08 21:48] LABS: Albumin 3.5 g/dL (3.9-5); Calcium 9.3 mg/dL (8.4-10.2)
[2022-02-09] MEDS ORDERED: KETOROLAC 10 MG TAB PO ONE (05:58)
[2022-02-09] MEDS ORDERED: ACETAMINOPHEN W/CODEINE 300-30 MG TAB PO ONE (05:58)
--- NOTE | 2022-02-09 07:06 | Emergency Department Report ---
ED Chest Pain HPI - General Chief Complaint: Chest Pain Stated Complaint: CHEST PAIN/SHORTNESS OF BREATH Time Seen by Provider: 02/09/22 05:38 Source: patient Mode of arrival: Ambulatory Limitations: No Limitations - History of Present Illness Initial Comments: 56-year-old black male CHF, COPD, DVT, diabetes, hypertension and CAD status post several stents presents to the emergency department for evaluation of 3-day history of chest pain, shortness of breath, headache, and elevated heart rate. He states that chest pain is significantly worse when he moves around, breathing, or is touched. He states that chest pain is also associated with some nausea, vomiting, and dizziness. He denies any diaphoresis and fever. MD Complaint: chest pain -: Gradual, days(s) (3) Onset: during rest Pain Location: left chest Pain Radiation: none Severity: moderate Severity scale (0 -10): 6 Quality: tightness, aching Consistency: intermittent Worsens With: inspiration, palpation, movement re: nausea, vomting, dyspnea. denies: diaphoresis, sense of impending doom Other Symptoms: palpitations. denies: cough, fever, syncope, rash, acid taste in mouth, leg swelling, burping Treatments Prior to Arrival: aspirin Aspirin use within the Past 7 Days: (1) Yes - Related Data Previous Rx's Medication Instructions Recorded Last Taken Type Potassium Chloride 10 meq PO BID #60 05/08/21 2 Days Ago Rx ~08/21/21 10 meq Aspirin EC [Ecotrin] 81 mg PO QDAY 30 Days #30 tablet 10/10/21 Unknown Rx AtorvaSTATin [Lipitor] 40 mg PO QHS #30 tablet 10/10/21 Unknown Rx Clopidogrel [Plavix] 75 mg PO DAILY 30 Days #30 tab 10/10/21 Unknown Rx Furosemide [Lasix TAB] 40 mg PO BID #60 tab 10/10/21 Unknown Rx ISOSORBIDE MONOnitrate [Imdur ER] 30 mg PO QDAY 30 Days #30 tablet 10/10/21 Unknown Rx Nitroglycerin [Nitrostat] 0.4 mg SL Q5M PRN 30 Days #30 10/10/21 Unknown Rx tablet Ranolazine ER [Ranexa ER] 500 mg PO BID 30 Days #60 tablet 10/10/21 Unknown Rx carvediloL [Coreg] 25 mg PO BID 30 Days #60 tablet 10/10/21 Unknown Rx hydrALAZINE [Apresoline TAB] 100 mg PO BID 30 Days #60 tab 10/10/21 Unknown Rx Allergies Allergy/AdvReac Type Severity Reaction Status Date / Time Sulfa (Sulfonamide Allergy Anaphylaxis Verified 07/13/21 13:28 Antibiotics) Heart Score - HEART Score History: Slightly suspicious EKG: Normal Age: 45-65 Risk factors: 1-2 risk factors Troponin: < normal limit HEART Score: 2 - EKG Read Time Time EKG Completed: 18:10 EKG Read Time: 18:14 - Critical Actions Critical Actions: 0-3 pts:0.9-1.7%risk of adverse cardiac event.Candidate for discharge ED Review of Systems ROS: Stated complaint: CHEST PAIN/SHORTNESS OF BREATH Other details as noted in HPI Comment: All other systems reviewed and negative Constitutional: denies: chills, fever Eyes: denies: vision change ENT: denies: congestion Respiratory: cough, shortness of breath. denies: orthopnea, SOB with exertion, SOB at rest, stridor, wheezing Cardiovascular: chest pain, palpitations. denies: dyspnea on exertion, orthopnea, edema, syncope, paroxysmal nocturnal dyspnea Gastrointestinal: nausea, vomiting. denies: abdominal pain, diarrhea, hematemesis, melena Genitourinary: denies: urgency, dysuria Musculoskeletal: denies: back pain Skin: denies: rash, lesions Neurological: denies: headache Psychiatric: denies: anxiety, depression ED Past Medical Hx - Past Medical History Hx Hypertension: Yes Hx Heart Attack/AMI: Yes Hx Congestive Heart Failure: Yes Hx Diabetes: No Hx Deep Vein Thrombosis: No Hx Arthritis: Yes Hx Asthma: No Hx COPD: No Hx Tuberculosis: Yes Hx HIV: No Additional medical history: 12 cardiac stents - Surgical History Hx Coronary Stent: Yes Hx Pacemaker: No Hx Internal Defibrillator: No - Social History Smoking Status: Never Smoker - Medications Home Medications: Home Medications Medication Instructions Recorded Confirmed Last Taken Type Potassium Chloride 10 meq PO BID #60 05/08/21 08/23/21 2 Days Ago Rx ~08/21/21 10 meq Aspirin EC [Ecotrin] 81 mg PO QDAY 30 Days #30 tablet 10/10/21 Unknown Rx AtorvaSTATin [Lipitor] 40 mg PO QHS #30 tablet 10/10/21 Unknown Rx Clopidogrel [Plavix] 75 mg PO DAILY 30 Days #30 tab 10/10/21 Unknown Rx Furosemide [Lasix TAB] 40 mg PO BID #60 tab 10/10/21 Unknown Rx ISOSORBIDE MONOnitrate [Imdur ER] 30 mg PO QDAY 30 Days #30 tablet 10/10/21 Unknown Rx Nitroglycerin [Nitrostat] 0.4 mg SL Q5M PRN 30 Days #30 10/10/21 Unknown Rx tablet Ranolazine ER [Ranexa ER] 500 mg PO BID 30 Days #60 tablet 10/10/21 Unknown Rx carvediloL [Coreg] 25 mg PO BID 30 Days #60 tablet 10/10/21 Unknown Rx hydrALAZINE [Apresoline TAB] 100 mg PO BID 30 Days #60 tab 10/10/21 Unknown Rx ED Physical Exam - General Limitations: No Limitations General appearance: alert, in no apparent distress - Head Head exam: Present: atraumatic, normocephalic - Eye Eye exam: Present: normal appearance. Absent: conjunctival injection, periorbi joshua swelling, periorbital tenderness - ENT ENT exam: Present: normal exam - Neck Neck exam: Present: normal inspection, full ROM. Absent: tenderness, lymphadenopathy - Respiratory Respiratory exam: Present: normal lung sounds bilaterally, chest wall tenderness. Absent: respiratory distress, wheezes, rales, rhonchi, stridor - Cardiovascular Cardiovascular Exam: Present: regular rate, normal heart sounds - GI/Abdominal GI/Abdominal exam: Present: soft, normal bowel sounds. Absent: distended, tenderness, guarding, rebound, rigid - Extremities Exam Extremities exam: Present: normal inspection, full ROM, normal capillary refill. Absent: tenderness, pedal edema, joint swelling, calf tenderness - Back Exam Back exam: Present: normal inspection. Absent: CVA tenderness (R), CVA tenderness (L), vertebral tenderness - Neurological Exam Neurological exam: Present: alert, CN II-XII intact, normal gait, reflexes normal. Absent: motor sensory deficit - Psychiatric Psychiatric exam: Present: normal affect, normal mood - Skin Skin exam: Present: warm, dry, intact, normal color ED Course Vital Signs 02/08/22 02/09/22 18:03 07:12 Temperature 98.3 F Pulse Rate 94 H 90 Respiratory 18 12 Rate Blood Pressure 188/135 172/96 [Left] O2 Sat by Pulse 100 97 Oximetry JACOB score - Jacob Score Age > 65: (0) No Aspirin use within the Past 7 Days: (1) Yes 3 or more CAD Risk Factors: (0) No 2 or more Angina events in past 24 hrs: (1) Yes Known CAD with more than 50% Stenosis: (1) Yes Elevated Cardiac Markers: (0) No ST Deviation Greater than 0.5mm: (0) No JACOB Score: 3 ED Medical Decision Making - Lab Data Result diagrams: 02/08/22 19:40 02/08/22 19:40 - EKG Data Interpretation: no acute changes, unchanged when compared t - Radiology Data Radiology results: report reviewed, image reviewed Chest x-ray: FINDINGS: SUPPORT DEVICES: None. HEART / MEDIASTINUM: No significant abnormality. LUNGS / PLEURA: No significant pulmonary or pleural abnormality. No pneumothorax. ADDITIONAL FINDINGS: No significant additional findings. IMPRESSION: 1. No acute findings. - Medical Decision Making 56-year-old black male CHF, COPD, DVT, diabetes, hypertension and CAD status post several stents presents to the emergency department for evaluation of 3-day history of chest pain, shortness of breath, headache, and elevated heart rate. He states that chest pain is significantly worse when he moves around, breathing, or is touched. He states that chest pain is also associated with some nausea, vomiting, and dizziness. He denies any diaphoresis and fever. 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 Work-up unremarkable including negative troponin x3. Patient be discharged home to follow-up with his primary care provider or cardiology for further evaluation and management and advised to return to the emergency department as needed. He verbalizes understanding of and agreement with plan of care. Critical care attestation.: If time is entered above; I have spent that time in minutes in the direct care of this critically ill patient, excluding procedure time. ED Disposition Clinical Impression: Chest pain Qualifiers: Chest pain type: unspecified Qualified Code(s): R07.9 - Chest pain, unspecified Disposition: 01 HOME / SELF CARE / HOMELESS Is pt being admited?: No Does the pt Need Aspirin: No Condition: Stable Instructions: Chest Wall Pain, [id number], Nonspecific Chest Pain, Adult, [id number] Additional Instructions: Follow-up with your primary care provider and or ordnance engineer for further evaluation and management. Return to the emergency department as needed. Referrals: JOSEPHINE MONROE MD [Primary Care Provider] - 3-5 Days ORALIA NARAYANAN MD [Staff Physician] - 3-5 Days Forms: Work/School Release Form(ED) Time of Disposition: 07:05
[2022-02-09 07:13] VITALS: BP 172/96
--- NOTE | 2022-02-09 11:44 | Electrocardiograph Report ---
[facility] Test Date: 2022-02-08 Test Time: 18:10:50 Pat Name: MO FLOREZ Department: Room: Gender: M Stemmer Machine: [id number] : [id number] Requested By: SETH COOPER Order Number: [id number] Reading MD: Manuel Roman Measurements Intervals Dana Rate: 97 P: 74 TN: 157 QRS: -20 QRSD: 98 T: 190 QT: 417 QTc: 530 Interpretive Statements Sinus rhythm Probable left atrial enlargement LVH with secondary repolarization abnormality Prolonged QT interval Compared to ECG 10/09/2021 07:47:03 No significant changes Electronically Signed On 02-09-2022 8:44:14 PDT by Manuel Roman
== END 2022-02-09 07:12 | disposition home or self-care (01) ==
LOC: ED 17:00
DX: R07.89 Other chest pain (principal); R06.02 Shortness of breath; I11.0 Hypertensive heart disease with heart failure; I50.9 Heart failure, unspecified; Z79.899 Other long term (current) drug therapy; Z88.2 Allergy status to sulfonamides
CPT/HCPCS: 36415; 71046; 80053; 84484; 85025; 93005; 99284